=== PATIENT | female | born 1960 | race Two or more races ===

== ENCOUNTER 2020-10-06 12:33 | Outpatient (REF) | payer OTHER, SELFPAY ==
[2020-10-06 15:09] LABS: Glucose Urine UA NEG (NEG); Leukocyte Esterase Urine NEG (NEG); Nitrite Urine NEG (NEG); PH 6.5 (5.0-8.0); Urine Blood NEG (NEG); Urine Ketones NEG (NEG); Urine Protein NEG (NEG-TRACE)
[2020-10-06 15:11] LABS: Appearance Urine CLEAR; Color Urine YELLOW
[2020-10-06 15:14] LABS: RBC Urine 0 /HPF (0); WBC Urine 0 /HPF (0-4)
[2020-10-06 15:15] LABS: Bacteria Urine TRACE /LPF
== END 2020-10-06 12:34 | disposition home or self-care (01) ==
LOC: HO.LAB 12:33
PROVIDERS: PCP Internal Medicine; Visit Provider Obstetrics & Gynecology
DX: R35.0 Frequency of micturition (principal); R39.15 Urgency of urination; R10.2 Pelvic and perineal pain; R30.0 Dysuria
CPT/HCPCS: 81001; 87086

== ENCOUNTER → 2020-10-31 12:46 | Outpatient (BNVA) | payer OTHER, SELFPAY | PROVIDERS: PCP Internal Medicine; Visit Provider Internal Medicine Endocrinology, Diabetes & Metabolism | DX: Z13.89 Encounter for screening for other disorder (principal) ==

== ENCOUNTER 2020-11-22 06:50 | Outpatient (REF) | payer OTHER, SELFPAY ==
[2020-11-22 08:41] LABS: Cholesterol 145 mg/dL; HDL Cholesterol 39 mg/dL; LDL Cholesterol Calculated 65 mg/dl; Triglycerides 207 mg/dL
[2020-11-22 08:43] LABS: Estimated Average Glucose 131 mg/dL; Hemoglobin A1C 151.4665 umol/L; Hemoglobin A1c % 6.2 %
[2020-11-22 09:01] LABS: Thyroid Stimulating Hormone 2.21 uIU/mL (0.32-4.0); Vitamin B12 253 pg/mL (200-900)
[2020-11-22 13:12] LABS: Creatinine Urine 30.16 mg/dL; Microalbum/Creatinine Ratio Ur 16.5 ug/mg cr
[2020-11-23 09:13] LABS: LDL Cholesterol Direct 77 mg/dL (<100)
== END 2020-11-22 06:51 | disposition home or self-care (01) ==
LOC: HO.LAB 06:50
PROVIDERS: Visit Provider Internal Medicine Endocrinology, Diabetes & Metabolism
DX: E11.9 Type 2 diabetes mellitus without complications (principal)
CPT/HCPCS: 36415; 80061; 82043; 82607; 83036; 83721; 84439; 84443

== ENCOUNTER 2020-12-19 11:11 | Outpatient (REF) | payer OTHER, SELFPAY ==
--- NOTE | ~2020-12-19 | MM_ITS ---
EXAMINATION: MM SCREENING DIGITAL BREAST TOMOSYNTHESIS, BILATERAL CLINICAL INFORMATION: Screening. Asymptomatic. The lifetime risk of breast cancer based on the Tyrer-Cuzick Model is 11%. COMPARISON: Mammography: 11/23/2019, 11/17/2019, 11/05/2018, 10/15/2017, 10/08/2016, 10/05/2015, 09/23/2014 TECHNIQUE: Digital breast tomosynthesis is performed in both the craniocaudal and mediolateral oblique views along with computer-aided detection (CAD). Synthesized 2D images are generated from the tomosynthesis. Additional exaggerated left CC view is provided. FINDINGS: The breasts are heterogeneously dense, which may obscure small masses (ACR BI-RADS breast composition Category c). The left breast shows no developing density or interval mass or architectural abnormality. Again, there are scattered bilateral benign round and coarse calcifications. Some minor retroareolar duct ectasia is again suggested on the tomography MLO views. No significant changes. The bilateral axilla and skin contours are unremarkable. The right MLO view has asymmetric density upper quadrant 5 cm from nipple without correlate on CC view suggesting probable summation artifact or incompletely compressed glandular tissue. Patient will be recalled to further characterize. MM/MM tomosynthesis screening BI IMPRESSION: 1. Right: Asymmetric density upper quadrant on MLO view without correlate CC view, possibly summation artifact during compressed glandular tissue. 2. Left: No mammographic evidence of malignancy. ASSESSMENT: BI-RADS 0: Incomplete - Need Additional Imaging Evaluation RECOMMENDATION: 1. Additional views of the right breast (3-D spot MLO, 3-D ML). 2. Targeted ultrasound if warranted after review of the additional views. 3. Radiology department staff will contact the patient for additional imaging. This patient's information was entered into a reminder system with a target due date for their next mammogram.
== END 2020-12-19 11:12 | disposition home or self-care (01) ==
LOC: HO.MAMMO 11:11
PROVIDERS: PCP Internal Medicine; Visit Provider Internal Medicine
DX: Z12.31 Encounter for screening mammogram for malignant neoplasm of breast (principal)
CPT/HCPCS: 77063; 77067

== ENCOUNTER 2020-12-27 08:27 | Outpatient (REF) | payer OTHER, SELFPAY ==
--- NOTE | ~2020-12-27 | MM_ITS ---
EXAMINATION: MM DIAGNOSTIC DIGITAL BREAST TOMOSYNTHESIS, RIGHT CLINICAL INFORMATION: Recall from screening for asymmetric density upper breast on MLO view, suspect summation artifact or incompletely compressed glandular tissue. COMPARISON: Mammography: 12/19/2020, 11/17/2019 TECHNIQUE: Digital breast tomosynthesis is performed. 2D images are generated from the tomosynthesis. The following views are obtained: 3-D spot MLO, 3-D ML. FINDINGS: The breasts are heterogeneously dense, which may obscure small masses (ACR BI-RADS breast composition Category c). The additional views show no persistent asymmetric density. There is no mass or developing density or architectural abnormality in the area of recent imaging concern. Results are discussed with the patient at time of visit. MM/MM tomosynthesis added views R IMPRESSION: Additional views are unremarkable. No significant changes from prior studies. ASSESSMENT: BI-RADS 1: Negative RECOMMENDATION: Routine annual mammography screening. This patient's information was entered into a reminder system with a target due date for their next mammogram.
== END 2020-12-27 08:28 | disposition home or self-care (01) ==
LOC: HO.MAMMO 08:27
PROVIDERS: Visit Provider Internal Medicine
DX: R92.2 Inconclusive mammogram (principal)
CPT/HCPCS: 77061; 77065

== ENCOUNTER 2021-01-09 15:31 | Outpatient (REF) | payer OTHER, SELFPAY ==
[2021-01-12 06:17] LABS: HPV mRNA E6/E7 rflx Not Detected (Not Detected)
== END 2021-01-09 15:32 | disposition home or self-care (01) ==
LOC: HO.LAB 15:31
PROVIDERS: PCP Internal Medicine; Visit Provider Obstetrics & Gynecology
DX: Z01.411 Encounter for gynecological examination (general) (routine) with abnormal findings (principal); Z11.51 Encounter for screening for human papillomavirus (HPV); N90.4 Leukoplakia of vulva
CPT/HCPCS: 36415; 87624; 88142

== ENCOUNTER 2021-01-19 15:27 | Outpatient (REF) | payer OTHER, SELFPAY | END 2021-01-19 15:28 | disposition home or self-care (01) | LOC: HO.LAB 15:27 | PROVIDERS: Visit Provider Obstetrics & Gynecology | DX: N90.4 Leukoplakia of vulva (principal) | CPT/HCPCS: 56605; 88305; 88312 ==

== ENCOUNTER → 2021-02-06 15:52 | Outpatient (BNVA) | payer OTHER, SELFPAY | PROVIDERS: Visit Provider Obstetrics & Gynecology ==

== ENCOUNTER 2021-02-22 14:19 | Outpatient (REF) | payer OTHER, SELFPAY ==
[2021-02-22 18:38] LABS: Alanine Aminotransferase 18 U/L (0-31); Albumin Level 4.5 g/dL (3.5-5.0); Alkaline Phosphatase 114 U/L (39-117); Anion Gap 13 (12-20); Aspartate Amino Transferase 14 U/L (5-31); Bilirubin Direct < 0.2 mg/dL (0.0-0.5); Bilirubin Total 0.2 mg/dL (0.0-1.0); Blood Urea Nitrogen 13 mg/dL (9-16); Calcium 9.3 mg/dL (8.4-10.2); Carbon Dioxide 25 mmol/L (22-29); Chloride 106 mmol/L (96-108); Estimated Glomerular Filt Rate > 60; Glucose Random 98 mg/dL (60-115); Potassium 4.3 mmol/L (3.3-5.1); Sodium 140 mmol/L (135-145); Total Protein 7.5 g/dL (6.5-8.0)
== END 2021-02-22 14:20 | disposition home or self-care (01) ==
LOC: HO.LAB 14:19
PROVIDERS: PCP Internal Medicine; Visit Provider Internal Medicine
DX: E66.9 Obesity, unspecified (principal); E78.9 Disorder of lipoprotein metabolism, unspecified; F41.1 Generalized anxiety disorder; R00.2 Palpitations; Z91.09 Other allergy status, other than to drugs and biological substances
CPT/HCPCS: 36415; 80048; 80076

== ENCOUNTER → 2021-05-26 07:24 | Outpatient (BNVA) | payer OTHER, SELFPAY | PROVIDERS: PCP Internal Medicine; Visit Provider Internal Medicine Endocrinology, Diabetes & Metabolism | DX: E66.9 Obesity, unspecified (principal); E11.9 Type 2 diabetes mellitus without complications; E55.9 Vitamin D deficiency, unspecified; E78.5 Hyperlipidemia, unspecified; R74.8 Abnormal levels of other serum enzymes | CPT/HCPCS: 82947 ==

== ENCOUNTER 2021-11-23 11:25 | Outpatient (REF) | payer OTHER, SELFPAY ==
[2021-11-23 12:34] LABS: Influenza A PCR NEGATIVE (Negative); Influenza B PCR NEGATIVE (Negative); Resp Syncy Virus RNA Qual PCR NEGATIVE (Negative); SARS COV2 PCR INHOUSE POSITIVE (Negative)
== END 2021-11-23 11:26 | disposition home or self-care (01) ==
LOC: HO.LNP 11:25
PROVIDERS: Visit Provider Physician Assistant
DX: Z20.822 Contact with and (suspected) exposure to COVID-19 (principal); J01.10 Acute frontal sinusitis, unspecified
CPT/HCPCS: 0241U

== ENCOUNTER 2022-01-03 15:39 | Outpatient (REF) | payer OTHER, SELFPAY ==
--- NOTE | ~2022-01-03 | MM_ITS ---
EXAMINATION: MM SCREENING DIGITAL BREAST TOMOSYNTHESIS, BILATERAL CLINICAL INFORMATION: Screening. Asymptomatic. The lifetime risk of breast cancer based on the Tyrer-Cuzick Model is 13%. COMPARISON: Mammography: 12/27/2020, 12/19/2020, 11/23/2019, 11/17/2019, 11/05/2018 TECHNIQUE: Digital breast tomosynthesis is performed in both the craniocaudal and mediolateral oblique views along with computer-aided detection (CAD). Synthesized 2D images are generated from the tomosynthesis. FINDINGS: The breasts are heterogeneously dense, which may obscure small masses (ACR BI-RADS breast composition Category c). Parenchymal pattern is similar to prior studies. There is no developing density or interval mass or architectural abnormality. There are scattered benign round and coarse calcifications. The axilla and skin contours are unremarkable. No significant changes. MM/MM tomosynthesis screening BI IMPRESSION: No mammographic evidence of malignancy. ASSESSMENT: BI-RADS 1: Negative RECOMMENDATION: Routine annual mammography screening. This patient's information was entered into a reminder system with a target due date for their next mammogram.
== END 2022-01-03 15:40 | disposition home or self-care (01) ==
LOC: HO.MAMMO 15:39
PROVIDERS: Visit Provider Internal Medicine
DX: Z12.31 Encounter for screening mammogram for malignant neoplasm of breast (principal)
CPT/HCPCS: 77063; 77067

== ENCOUNTER → 2022-02-06 15:31 | Outpatient (BNVA) | payer OTHER, SELFPAY | PROVIDERS: Visit Provider Obstetrics & Gynecology | DX: Z13.89 Encounter for screening for other disorder (principal) ==

== ENCOUNTER → 2022-02-14 12:16 | Outpatient (BNVA) | payer OTHER, SELFPAY | PROVIDERS: Visit Provider Physician Assistant Medical | DX: Z13.89 Encounter for screening for other disorder (principal) | CPT/HCPCS: 36415; 84450; 84460; 86803; 87389; 99213 ==

== ENCOUNTER 2022-03-01 09:06 | Outpatient (REF) | payer OTHER, SELFPAY ==
[2022-03-01 11:11] LABS: MANUAL DIFF FLAG NO
[2022-03-01 11:21] LABS: Basophils Absolute Auto 0.1 X10*3/uL (0.0-0.2); Basophils Percent Auto 0.4 % (0-2); Eosinophils Absolute Auto 0.2 X10*3/uL (0.0-0.4); Eosinophils Percent Auto 1.4 % (0-4); Hematocrit 43.6 % (37.0-47.0); Hemoglobin 14.3 g/dl (12.0-16.0); Imm Gran Abs Auto 0.03 X10*3/uL (0.00-0.03); Imm Gran Pct Auto 0.2 % (0.0-0.4); Lymphocytes Absolute Auto 3.2 X10*3/uL (1.2-4.9); Lymphocytes Percent Auto 26.1 % (20-40); Mean Corpuscular HGB Conc 32.8 g/dl (31.0-35.0); Mean Corpuscular Hemoglobin 29.1 pg (27.0-33.0); Mean Corpuscular Volume 88.6 fL (80.0-98.0); Mean Platelet Volume 10.3 fL (9.4-12.3); Neutrophils Absolute Auto 7.9 x10*3/uL (2.0-8.3); Neutrophils Percent Auto 63.9 % (45-73); Platelet Count 500 X10*3/uL (160-400); Red Blood Count 4.92 X10*6/uL (4.20-5.50); Red Cell Distribution Width 13.2 % (11.0-16.0); White Blood Count 12.3 X10*3/uL (4.8-10.8)
[2022-03-01 11:26] LABS: Estimated Average Glucose 123 mg/dL; Hemoglobin A1c % 5.9 %
[2022-03-01 11:30] LABS: Alanine Aminotransferase 30 U/L (0-31); Albumin Level 4.4 g/dL (3.5-5.0); Alkaline Phosphatase 104 U/L (39-117); Anion Gap 15 (12-20); Aspartate Amino Transferase 22 U/L (5-31); Bilirubin Total 0.5 mg/dL (0.0-1.0); Blood Urea Nitrogen 12 mg/dL (9-16); Calcium 10.3 mg/dL (8.4-10.2); Carbon Dioxide 23 mmol/L (22-29); Chloride 105 mmol/L (96-108); Cholesterol 156 mg/dL; Estimated Glomerular Filt Rate > 60; Glucose Fasting 100 mg/dL (60-99); HDL Cholesterol 38 mg/dL; LDL Cholesterol Calculated 68 mg/dl; Potassium 4.4 mmol/L (3.3-5.1); Sodium 139 mmol/L (135-145); Total Protein 7.6 g/dL (6.5-8.0); Triglycerides 251 mg/dL
[2022-03-01 11:54] LABS: TSH reflex Free T4 1.48 uIU/mL (0.32-4.0)
[2022-03-01 11:58] LABS: Creatinine Urine 63.22 mg/dL; Microalbumin Urine < 5.0 mg/L
[2022-03-01 11:58] LABS: Vitamin B12 239 pg/mL (200-900)
[2022-03-05 12:41] LABS: Vitamin D 25-OH, D2 <4 ng/mL; Vitamin D 25-OH, D3 55 ng/mL; Vitamin D 25-OH, Total 55 ng/mL (30-100)
== END 2022-03-01 09:07 | disposition home or self-care (01) ==
LOC: HO.HMGCLDS 09:06
PROVIDERS: PCP Internal Medicine; Visit Provider Internal Medicine
DX: E11.9 Type 2 diabetes mellitus without complications (principal); E55.9 Vitamin D deficiency, unspecified; E66.9 Obesity, unspecified; E78.9 Disorder of lipoprotein metabolism, unspecified; F41.1 Generalized anxiety disorder; R74.8 Abnormal levels of other serum enzymes; Z91.09 Other allergy status, other than to drugs and biological substances
CPT/HCPCS: 36415; 80053; 80061; 82043; 82306; 82607; 83036; 84443; 85025

== ENCOUNTER 2022-03-20 14:48 | Outpatient (REF) | payer OTHER, SELFPAY ==
--- NOTE | ~2022-03-20 | XR_ITS ---
EXAMINATION: XR FOOT, RIGHT CLINICAL INFORMATION: Pain COMPARISON: None TECHNIQUE: AP, lateral, and oblique views of the right foot. FINDINGS: Bone alignment is normal. No fracture or dislocation is seen. Joint spaces are normal. There is a plantar calcaneal spur. Soft tissues are otherwise normal. XR/XR foot RT 2V IMPRESSION: Plantar calcaneal spur otherwise unremarkable exam.
--- NOTE | ~2022-03-20 | XR_ITS ---
EXAMINATION: XR KNEE, RIGHT CLINICAL INFORMATION: Pain COMPARISON: None TECHNIQUE: Two views of the right knee. FINDINGS: Bone alignment is normal. No fracture or dislocation is seen. The joint spaces are normal. There is no joint effusion. XR/XR knee RT 2V IMPRESSION: Normal right knee.
== END 2022-03-20 14:49 | disposition home or self-care (01) ==
LOC: HO.XRAY 14:48
PROVIDERS: PCP Internal Medicine; Visit Provider Internal Medicine
DX: M25.561 Pain in right knee (principal); M79.671 Pain in right foot
CPT/HCPCS: 73560; 73620

== ENCOUNTER → 2022-08-28 13:03 | Outpatient (BNVA) | payer OTHER, SELFPAY | PROVIDERS: PCP Internal Medicine; Visit Provider Surgery | DX: L72.0 Epidermal cyst (principal) | CPT/HCPCS: 10060 ==

== ENCOUNTER 2022-09-28 06:45 | Outpatient (REF) | payer OTHER, SELFPAY ==
[2022-09-28 07:42] LABS: Calcium 9.6 mg/dL (8.4-10.2); Chloride 107 mmol/L (96-108); Potassium 4.7 mmol/L (3.3-5.1); Sodium 142 mmol/L (135-145)
[2022-09-28 07:56] LABS: Estimated Average Glucose 120 mg/dL; Hemoglobin A1c % 5.8 %
[2022-09-28 08:01] LABS: Alanine Aminotransferase 21 U/L (0-31); Albumin Level 4.4 g/dL (3.5-5.0); Alkaline Phosphatase 128 U/L (39-117); Anion Gap 17 (12-20); Aspartate Amino Transferase 18 U/L (5-31); Bilirubin Total 0.5 mg/dL (0.0-1.0); Blood Urea Nitrogen 12 mg/dL (9-16); Carbon Dioxide 25 mmol/L (22-29); Estimated Glomerular Filt Rate > 60; Glucose Random 94 mg/dL (60-115); Total Protein 7.4 g/dL (6.5-8.0)
[2022-09-28 11:12] LABS: Creatinine Urine 37.19 mg/dL; Microalbumin Urine < 5.0 mg/L
[2022-10-01 00:37] LABS: LDL Cholesterol Direct 76 mg/dL (<100)
== END 2022-09-28 06:46 | disposition home or self-care (01) ==
LOC: HO.LAB 06:45
PROVIDERS: Visit Provider Internal Medicine
DX: E11.9 Type 2 diabetes mellitus without complications (principal); E66.9 Obesity, unspecified; E78.9 Disorder of lipoprotein metabolism, unspecified; F41.1 Generalized anxiety disorder; Z91.09 Other allergy status, other than to drugs and biological substances
CPT/HCPCS: 36415; 80053; 82043; 83036; 83721

== ENCOUNTER 2023-01-09 14:51 | Outpatient (REF) | payer OTHER, SELFPAY ==
--- NOTE | ~2023-01-09 | MM_ITS ---
EXAMINATION: MM SCREENING DIGITAL BREAST TOMOSYNTHESIS, BILATERAL CLINICAL INFORMATION: Screening. Asymptomatic. The lifetime risk of breast cancer based on the Tyrer-Cuzick Model is 13%. COMPARISON: Mammography: 01/03/2022, 12/27/2020, 12/19/2020, 11/23/2019, 11/17/2019, 11/05/2018 TECHNIQUE: Digital breast tomosynthesis is performed in both the craniocaudal and mediolateral oblique views along with computer-aided detection (CAD). Synthesized 2D images are generated from the tomosynthesis. FINDINGS: The breasts are heterogeneously dense, which may obscure small masses (ACR BI-RADS breast composition Category c). Parenchymal pattern is similar to prior exams and there is no significant mass or architectural abnormality or abnormal calcifications. Again, there is chronic bilateral subareolar duct ectasia, greater on the left. Scattered bilateral benign round and coarse calcifications are again noted. The axilla and skin contours are unremarkable. No significant changes from prior studies. MM/MM tomosynthesis screening BI IMPRESSION: No significant changes from prior exams. ASSESSMENT: BI-RADS 2: Benign RECOMMENDATION: Routine annual mammography screening. This patient's information was entered into a reminder system with a target due date for their next mammogram.
== END 2023-01-09 14:52 | disposition home or self-care (01) ==
LOC: HO.MAMMO 14:51
PROVIDERS: PCP Internal Medicine; Visit Provider Internal Medicine
DX: Z12.31 Encounter for screening mammogram for malignant neoplasm of breast (principal)
CPT/HCPCS: 77063; 77067

== ENCOUNTER → 2023-02-11 15:27 | Outpatient (BNVA) | payer OTHER, SELFPAY | PROVIDERS: PCP Internal Medicine; Visit Provider Obstetrics & Gynecology | DX: Z13.89 Encounter for screening for other disorder (principal) ==

== ENCOUNTER 2023-04-02 17:31 | Emergency (ER) | payer OTHER, SELFPAY ==
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
--- NOTE | ~2023-04-02 | XR_ITS ---
EXAMINATION: LUMBAR SPINE, RIGHT KNEE, RIGHT ELBOW CLINICAL INFORMATION: Trauma COMPARISON: None available. TECHNIQUE: 3 views lumbosacral spine, 5 views right knee, 3 views right elbow FINDINGS: Some minimal spondylitic degenerative changes are seen in the lumbar spine. No fractures, dislocations or bony destructive lesions are seen. Moderate stool burden in the colon. A single surgical clip in the right lower quadrant. No significant bone, joint or soft tissue abnormality is seen in the right knee. No bone, joint or soft tissue abnormality is seen in the right elbow. XR/XR elbow RT 2V IMPRESSION: No evidence of an acute osseous injury. Incidental findings as described above.
--- NOTE | ~2023-04-02 | XR_ITS ---
EXAMINATION: LUMBAR SPINE, RIGHT KNEE, RIGHT ELBOW CLINICAL INFORMATION: Trauma COMPARISON: None available. TECHNIQUE: 3 views lumbosacral spine, 5 views right knee, 3 views right elbow FINDINGS: Some minimal spondylitic degenerative changes are seen in the lumbar spine. No fractures, dislocations or bony destructive lesions are seen. Moderate stool burden in the colon. A single surgical clip in the right lower quadrant. No significant bone, joint or soft tissue abnormality is seen in the right knee. No bone, joint or soft tissue abnormality is seen in the right elbow. XR/XR knee RT 3V IMPRESSION: No evidence of an acute osseous injury. Incidental findings as described above.
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
[2023-04-02 18:44] VITALS: BP 151/77; PULSE 87; RESP 20; TEMP 36.6; O2SAT 97; BMI 29.1
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
[2023-04-02] MEDS: Acetaminophen 325 MG TABLET 975 MG PO (19:05)
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
[2023-04-02] MEDS: Ketorolac Tromethamine 30 MG/ML VIAL IM (19:59)
[2023-04-02] MEDS: Cyclobenzaprine HCl 10 MG TABLET PO (20:00)
[2023-04-02 20:03] VITALS: BP 148/69; PULSE 81; RESP 17; O2SAT 95
--- NOTE | 2023-04-02 20:06 | PC.NURSE ---
Patient medicated per JAN. Patient given warm blanket and resting comfortably. call alvares within reach.
== END 2023-04-02 21:26 | disposition home or self-care (01) ==
PROVIDERS: Emergency Provider Emergency Medicine; PCP Internal Medicine
DX: S39.012A Strain of muscle, fascia and tendon of lower back, initial encounter (principal); S13.4XXA Sprain of ligaments of cervical spine, initial encounter; S50.01XA Contusion of right elbow, initial encounter; S80.01XA Contusion of right knee, initial encounter; V43.52XA Car driver injured in collision with other type car in traffic accident, initial encounter; R55 Syncope and collapse; E11.9 Type 2 diabetes mellitus without complications; E78.5 Hyperlipidemia, unspecified; Z79.85 Long-term (current) use of injectable non-insulin antidiabetic drugs; Z79.02 Long term (current) use of antithrombotics/antiplatelets; Z79.899 Other long term (current) drug therapy; Y93.89 Activity, other specified; Y92.414 Local residential or business street as the place of occurrence of the external cause; Y99.9 Unspecified external cause status
CPT/HCPCS: 70450; 72100; 72125; 73070; 73562; 96372; 99284; J1885

== ENCOUNTER 2023-06-13 11:00 | Outpatient (RCR) | payer OTHER, SELFPAY ==
--- NOTE | 2023-05-16 13:36 | MHC.PT.EP ---
[facility] [place] Office [place] Office [place] Office [address] Cory Herrera [address] [phone] F: [phone] F: [phone] F: [phone] F: [phone] Physical Therapy Plan of Care Date of Evaluation: Date of Surgery: N/A Diagnosis: M54.16 radiculopathy, lumbar region M54.2 cervicalgia (RL) Assessment: pt is a 63 y/o female presenting to physical therapy w/ referring diagnosis of M54.16 radiculopathy, lumbar region, M54.2 cervicalgia. pt would like to focus on evaluation and treatment for her neck at this time. pt's signs and symptoms consistent w/ upper trap spasm/strain and cervicogenic ORDAZ. Lumbar spine not evaluated today. Impairments include pain, decreased range of motion, decreased strength, impaired functional mobility, impaired postural awareness, and altered ambulation mechanics. pt is a good candidate for skilled PT due to age, potential remediation of impairments, typical disease/condition progression and prognosis, comorbidities, and motivation. pt would benefit from skilled PT intervention to provide a tailored strengthening and stretching exercise program, functional training, gait training, postural re-training, neuromuscular re-education, modalities as needed for pain, equipment safety demonstration. Frequency and Duration: The patient will be seen 2x/wk for 4 wks Short Term Goals: pt will be I w/ HEP to promote self-management of condition. pt will demo proper sitting posture w/ lumbar roll to promote neutral spine w/ seated ADLs/work tasks. Manager Reliability Goals: pt will report a statistically significant improvement in self-reported outcome measure, NDI, to promote return to PLOF. pt will improve B cervical rotation by at least 10 degrees to promote ease in head turns w/ driving for safety. Treatment Plan: Modalities to reduce pain, spasms and effusion. Manual therapy to restore motion and function. Therapeutic exercise to improve strength and flexibility. Neuromuscular re-education for posture and balance. Therapeutic activities to return to functional activities of daily living. Electronically signed by: Nancy Giron PT, DPT Please sign and return to therapist. Thank you for your referral.
--- NOTE | 2023-07-03 13:46 | MHC.PT.DC ---
[facility] [place] Office [place] Office [place] Office [address] Cory Herrera [address] [phone] F: [phone] F: [phone] F: [phone] F: [phone] Physical Therapy Discharge Report Diagnosis: M54.16 radiculopathy, lumbar region M54.2 cervicalgia (RL) Date of Surgery: N/A Date of Evaluation: 05/16/23 Date of Discharge: 07/03/23 Treatments to Date: 4 Cancellations to Date: 2 No Shows to Date: 0 Discharge Status: Visit Non-compliance Discharge Summary: The patient cancelled her last two appointments and has not called to reschedule in two weeks. She is being discharged from this physical therapy plan of care at this time. She was responding well to cervical and thoracic mobility program as well as heat and soft tissue work. Electronically signed by: Nancy Giron PT, DPT Please sign and return to therapist. Thank you for your referral.
== END 2023-07-03 13:46 | disposition home or self-care (01) ==
LOC: HO.PT 11:00
PROVIDERS: PCP Internal Medicine; Visit Provider Internal Medicine
DX: M54.16 Radiculopathy, lumbar region (principal); M54.2 Cervicalgia
CPT/HCPCS: 97110; 97140; 97162

== ENCOUNTER 2023-07-19 06:50 | Outpatient (REF) | payer OTHER, SELFPAY ==
[2023-07-19 07:01] LABS: MANUAL DIFF FLAG NO
[2023-07-19 07:42] LABS: Basophils Absolute Auto 0.1 X10*3/uL (0.0-0.2); Basophils Percent Auto 0.8 % (0-2); Eosinophils Absolute Auto 0.3 X10*3/uL (0.0-0.4); Eosinophils Percent Auto 3.1 % (0-4); Hematocrit 41.6 % (37.0-47.0); Hemoglobin 13.3 g/dl (12.0-16.0); Imm Gran Abs Auto 0.02 X10*3/uL (0.00-0.03); Imm Gran Pct Auto 0.2 % (0.0-0.4); Lymphocytes Absolute Auto 3.4 X10*3/uL (1.2-4.9); Lymphocytes Percent Auto 36.9 % (20-40); Mean Corpuscular Hemoglobin 28.9 pg (27.0-33.0); Mean Corpuscular Volume 90.2 fL (80.0-98.0); Mean Platelet Volume 10.7 fL (9.4-12.3); Monocytes Absolute Auto 0.8 X10*3/uL (0.1-1.2); Monocytes Percent Auto 9.2 % (2-11); Neutrophils Absolute Auto 4.5 x10*3/uL (2.0-8.3); Neutrophils Percent Auto 49.8 % (45-73); Platelet Count 441 X10*3/uL (160-400); Red Blood Count 4.61 X10*6/uL (4.20-5.50); Red Cell Distribution Width 13.1 % (11.0-16.0); White Blood Count 9.1 X10*3/uL (4.8-10.8)
[2023-07-19 07:54] LABS: Alanine Aminotransferase 22 U/L (0-31); Albumin Level 4.3 g/dL (3.5-5.0); Alkaline Phosphatase 126 U/L (39-117); Anion Gap 15 (12-20); Aspartate Amino Transferase 19 U/L (5-31); Bilirubin Total 0.3 mg/dL (0.0-1.0); Blood Urea Nitrogen 15 mg/dL (9-16); Calcium 10.2 mg/dL (8.4-10.2); Carbon Dioxide 22 mmol/L (22-29); Chloride 108 mmol/L (96-108); Cholesterol 134 mg/dL (<200); Estimated Glomerular Filt Rate > 60; Glucose Fasting 121 mg/dL (60-99); HDL Cholesterol 42 mg/dL (>40); LDL Cholesterol Calculated 56 mg/dL (<100); Potassium 4.1 mmol/L (3.3-5.1); Sodium 141 mmol/L (135-145); Total Protein 7.5 g/dL (6.5-8.0); Triglycerides 183 mg/dL (<150)
[2023-07-19 07:56] LABS: Estimated Average Glucose 117 mg/dL; Hemoglobin A1c % 5.7 % (<6.0)
[2023-07-19 10:53] LABS: Creatinine Urine 89.14 mg/dL; Microalbum/Creatinine Ratio Ur 8.9 ug/mg cr (<30)
--- NOTE | 2023-09-30 13:53 | HM_ITS ---
Conclusion: 1. Patient was monitored for total period of 2 days and 23 hours 2. Baseline was normal sinus with average heart of 81 beats per minute 3. No significant pauses noted 4. No significant arrhythmias noted 5. No patient reported events MTDD
== END 2023-07-19 06:51 | disposition home or self-care (01) ==
LOC: HO.LAB 06:50
PROVIDERS: PCP Internal Medicine; Visit Provider Internal Medicine
DX: Z00.01 Encounter for general adult medical examination with abnormal findings (principal); E11.9 Type 2 diabetes mellitus without complications; E78.9 Disorder of lipoprotein metabolism, unspecified; F33.9 Major depressive disorder, recurrent, unspecified; F41.1 Generalized anxiety disorder; I10 Essential (primary) hypertension; R79.89 Other specified abnormal findings of blood chemistry; Z91.09 Other allergy status, other than to drugs and biological substances
CPT/HCPCS: 36415; 80053; 80061; 82043; 82570; 83036; 85025

== ENCOUNTER 2023-07-26 15:03 | Outpatient (AMB) | payer OTHER, SELFPAY ==
[2023-07-26 15:15] VITALS: BP 120/66; PULSE 94; O2SAT 94; BMI 29.6
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
== END 2023-07-26 15:58 | disposition home or self-care (01) ==
PROVIDERS: Visit Provider Internal Medicine
DX: M54.2 Cervicalgia (principal); R51.9 Headache, unspecified; S06.0X0D Concussion without loss of consciousness, subsequent encounter; Z04.3 Encounter for examination and observation following other accident; V89.2XXD Person injured in unspecified motor-vehicle accident, traffic, subsequent encounter
CPT/HCPCS: 99214

== ENCOUNTER 2023-07-26 15:44 | Outpatient (AMB) | payer OTHER, SELFPAY ==
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
== END 2023-07-26 15:58 | disposition home or self-care (01) ==
LOC: HO.HMGC 15:44
PROVIDERS: PCP Internal Medicine; Visit Provider Internal Medicine
DX: E11.9 Type 2 diabetes mellitus without complications (principal); Z79.4 Long term (current) use of insulin; Z91.09 Other allergy status, other than to drugs and biological substances; F33.42 Major depressive disorder, recurrent, in full remission; E66.9 Obesity, unspecified; E78.9 Disorder of lipoprotein metabolism, unspecified; F41.1 Generalized anxiety disorder
CPT/HCPCS: 99214

== ENCOUNTER 2023-09-19 12:40 | Outpatient (AMB) | payer OTHER, SELFPAY ==
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
[2023-09-19 13:04] VITALS: BP 112/78; PULSE 84; O2SAT 97; BMI 30.4
== END 2023-09-19 13:57 | disposition home or self-care (01) ==
PROVIDERS: PCP Internal Medicine; Visit Provider Nurse Practitioner Family
DX: M54.2 Cervicalgia (principal); F07.81 Postconcussional syndrome; G44.309 Post-traumatic headache, unspecified, not intractable
CPT/HCPCS: 99204

== ENCOUNTER → 2023-09-19 12:40 | Outpatient (BNVA) | payer OTHER, SELFPAY | PROVIDERS: PCP Internal Medicine; Visit Provider Nurse Practitioner Family ==

== ENCOUNTER → 2023-09-30 13:53 | Outpatient (BNV) | payer OTHER, SELFPAY | PROVIDERS: PCP Internal Medicine; Visit Provider Internal Medicine Cardiovascular Disease | DX: R00.2 Palpitations (principal) | CPT/HCPCS: 93244 ==

== ENCOUNTER → 2023-09-30 13:56 | Outpatient (REF) | payer OTHER, SELFPAY ==
--- NOTE | 2023-09-30 | HM_ITS ---
Conclusion: 1. Patient was monitored for total period of 2 days and 23 hours 2. Baseline was normal sinus with average heart of 81 beats per minute 3. No significant pauses noted 4. Rare PACs noted next 5. No patient reported events MTDD
== END ==
LOC: HO.CARD 13:56
PROVIDERS: Visit Provider Internal Medicine Cardiovascular Disease
DX: R00.2 Palpitations (principal)
CPT/HCPCS: 93242

== ENCOUNTER 2023-10-25 15:02 | Outpatient (AMB) | payer OTHER, SELFPAY ==
--- NOTE | 2023-10-25 15:09 | MHC.PC.OV ---
Vital Signs 10/25/23 15:10 Height 5 ft 5 in Weight 186 lb BMI 30.9 BP 118/62 Blood Pressure Location Rt brachial Position Sitting Pulse 76 Pulse Source Pulse Oximeter Pulse Oximetry (%) 96 Oxygen Delivery Method Room Air Intake Visit Reasons: 3 month fu Allergies metformin Adverse Reaction (Unknown, Verified 10/25/23 15:10) GI upset flu vaccine Allergy (Uncoded 10/25/23 15:27) Angioedema Medication List - Last Reconciled 10/25/23 by Chato De Souza MD blood sugar diagnostic (FreeStyle Lite Strips) Once a day blood-glucose meter (FreeStyle Lite Meter kit) As directed cholecalciferol (vitamin D3) 50 mcg PO DAILY 30 days clobetasol 0.05% 1 appl topical BEDTIME escitalopram oxalate 20 mg PO DAILY 90 days flash glucose sensor (FreeStyle Elma 14 Day Sensor kit) every 14 days galcanezumab-gnlm (Emgality Pen) 120 mg subcut ONCE 30 days ketoconazole 2% 1 appl topical .qhs 30 days lancets (VideojugStyle Lancets) As directed to test blood glucose once a day magnesium oxide 400 mg PO BEDTIME 30 days metoprolol succinate ER (Toprol XL) 50 mg (1/2 x 100 mg) PO DAILY montelukast 10 mg PO DAILY 90 days naratriptan take 1/2 - 1 tab at onset of headache; if no relief may repeat 1 tab after at least 4 hrs; max = 2 tabs/24 hrs orally PRN; 30 days omeprazole 20 mg PO DAILY riboflavin (vitamin B2) 400 mg (4 x 100 mg) PO DAILY 30 days rosuvastatin 10 mg PO BEDTIME Tobacco use date assessed: 10/25/23 Dental Screening Dental Screen Date: 10/25/23 Did you have a dental visit in the last 12 months?: Yes Did you have a dental problem in the last 6 months where you did not have access to dental care?: No Was dental information given to patient?: Patient has dentist HPI 3 month fu HPI Details Regular follow-up appointment Diabetes mellitus: Patient has stopped taking Trulicity, she is feeling much better her headaches has resolved. Now only watching diet Anxiety/depression: Continue Lexapro 20 mg Blood pressure is stable patient is on metoprolol 50 mg, she sees Dr. Jesus every other year For allergies she is on singular 10 mg and should be on long-acting antihistamine [id number]. GERD is stable with PPI Lipid disorder: Continue rosuvastatin 10 mg daily. Patient has follow-up appointment end of March for physical exam, labs to be repeated then [facility] Medical History Elevated alkaline phosphatase level Dyslipidemia Vitamin D deficiency Obesity (BMI 30-39.9) Diabetes type 2, controlled Surgical History History of angiography History of sinus surgery History of colonoscopy History of appendectomy Family History Father Prostate cancer Mother Diabetes mellitus Dementia HTN (hypertension) Brother No problems noted. Brother No problems noted. Sister No problems noted. Daughter No problems noted. Sister Diabetes mellitus HTN (hypertension) Other Mental health disorder Social History Housing: House Alcohol intake: never Patient Tobacco Use Status: Never used Tobacco e-Cigarette/Vaping Use: Never Used Second Hand Smoke Exposure: No Current occupational status: employed Gender identity: Female Cognitive needs: No Hearing needs: No Vision needs: Yes Female Reproductive History Menstrual Age of Menarche: 14 Questionnaire PHQ-9 Over the last 2 weeks, how often have you been bothered by any of the following problems? 1. Little interest or pleasure in doing things: more than half the days 2. Feeling down, depressed, or hopeless: more than half the days 3. Trouble falling or staying asleep, or sleeping too much: more than half the days 4. Feeling tired or having little energy: more than half the days 5. Poor appetite or overeating: more than half the days 6. Feeling bad about yourself - or that you are a failure or have let yourself or your family down: more than half the days 7. Trouble concentrating on things, such as reading the newspaper or watching television: more than half the days 8. Moving or speaking so slowly that other people could have noticed. Or the opposite - being so fidgety or restless that you have been moving around a lot more than usual: more than half the days 9. Thoughts that you would be better off or of hurting yourself in some way: more than half the days Total score: 18 Depression Screening Interpretation: Positive Depression Screening Follow-up: Existing condition and In treatment Depression Screening Done: Yes 22103 - PHQ-9 Billing: Yes Source: Developed by Drs. Beto Griffin, Latonia Kimball, Dann Spaulding and colleagues, with an educational venancio from [employer]. Thrive Questionnaire Date Thrive assessed: 10/25/23 I am a: Patient What is your living situation today?: I have a steady place to live Within the past 12 months, did the food you bought not last and you didn't have the money to get more?: Never true Within the past 12 months, did you worry whether your food would run out before you got money to buy more?: Never true Do you have trouble paying for medicines?: No Do you have trouble getting transportation to medical appointments?: No Do you have trouble paying your heating and electricity bill?: No Do you have trouble taking care of your child, family member or friend?: No Do you have trouble with day-to-day activities such as bathing, preparing meals, shopping, managing finances, etc.?: No Are you currently unemployed and looking for a job?: No Are you interested in more education?: No Please select the resources that you would like help with: None AIDA-7 AMB Questionnaire AIDA-7 Date AIDA - 7 assessed: 10/25/23 Feeling nervous, anxious, or on edge: 2 = More than half the days Not being able to stop or control worryin = More than half the days Worrying too much about different things: 2 = More than half the days Trouble relaxin = More than half the days Being so restless that it is hard to sit still: 2 = More than half the days Becoming easily annoyed or irritable: 2 = More than half the days Feeling afraid as if something awful might happen: 2 = More than half the days Total AIDA-7 score (0-4 normal; 5-9 mild; 10-14 moderate; 15-21 severe): 14 Source: Developed by Drs. Beto Griffin, Latonia Kimball, Dann Spaulding and colleagues, with an educational venancio from [employer]. AIDA-7 Assessment Billing AIDA-7 Assessment Tool: AIDA-7 Assessment 66538 Review of Systems Const Denies chills and Denies fever(s) ENT Denies epistaxis and Denies nasal discharge Card Denies chest pain Resp Denies chest congestion, Denies cough and Denies hemoptysis GI Denies diarrhea and Denies nausea Skin/Breast Denies rash Neuro Reports no additional complaints Psych Reports no additional complaints Endo Reports no additional complaints Physical exam (Primary Care) Vital Signs: Last Vital Signs Pulse 76 10/25/23 15:10 BP 118/62 10/25/23 15:10 Pulse Ox 96 10/25/23 15:10 Oxygen Delivery Method Room Air 10/25/23 15:10 BMI result Body Mass Index 30.9 Tobacco/Smoking Status: Tobacco use Status Tobacco use date assessed 10/25/23 10/25/23 15:10 Patient Tobacco Use Status Never used Tobacco 10/25/23 15:10 e-Cigarette/Vaping Use Never Used 10/25/23 15:10 PHQ-9: PHQ-9 Score PHQ-9: Total score 18 10/25/23 15:31 Depression Screening Interpretation: Positive Depression Screening Follow-up: Existing condition and In treatment Thrive Assessment: Date of Thrive Assessment Date Thrive assessed 10/25/23 10/25/23 15:17 Const General: cooperative, comfortable and no acute distress Orientation/consciousness: patient oriented x3 HENMT Head: Yes normocephalic Eyes General: appearance normal, both eyes and all related structures Neck Neck: Yes supple Resp Effort & Inspection: normal respiratory effort, no cough and no stridor Cardio Rhythm: regular rhythm Heart sounds: S1 normal heart sound present and S2 normal heart sound present Skin General skin exam: turgor normal Neuro General: patient oriented x3, tone normal and moves all extremities Extrem Right lower extremity: no edema Left lower extremity: no edema Results AMB Hemoglobin A1c AMB Hemoglobin A1c 6.5 % Last Edit by Marisel Coles CMA on 10/25/23 15:30 Results Reviewed Results Reviewed: Laboratory Last Values Hgb A1c (Clinic) 6.5 % (4.0-6.0) H 10/25/23 15:18 Assessment and Plan Assessment & Plan (1) Diabetes mellitus type 2 in obese: Code(s): E11.69 - Type 2 diabetes mellitus with other specified complication; E66.9 - Obesity, unspecified (2) Major depression, recurrent: Code(s): F33.9 - Major depressive disorder, recurrent, unspecified Qualifiers: Active/Remission status: in full remission Qualified Code(s): F33.42 - Major depressive disorder, recurrent, in full remission (3) Obesity (BMI 30-39.9): Code(s): E66.9 - Obesity, unspecified (4) Environmental allergies: Code(s): Z91.09 - Other allergy status, other than to drugs and biological substances (5) Lipid disorder: Code(s): E78.9 - Disorder of lipoprotein metabolism, unspecified (6) Anxiety, generalized: Code(s): F41.1 - Generalized anxiety disorder Plan Regular follow-up appointment Diabetes mellitus: Patient has stopped taking Trulicity, she is feeling much better her headaches has resolved. Now only watching diet Anxiety/depression: Continue Lexapro 20 mg Blood pressure is stable patient is on metoprolol 50 mg, she sees Dr. Jesus every other year For allergies she is on singular 10 mg and should be on long-acting antihistamine [id number]. GERD is stable with PPI Lipid disorder: Continue rosuvastatin 10 mg daily. Patient has follow-up appointment end of March for physical exam, labs to be repeated then Orders: Orders AMB Hemoglobin A1c Today E11.9 - Type 2 diabetes mellitus without complications Medications: New clotrimazole-betamethasone 1-0.05 % 1 appl topical ONCE 45 grams 0RF Foot fungus 30 days Coding Level of Care Code Est Pt Level 4 (06797) Diagnoses Diabetes mellitus type 2 in obese E11.69; E66.9 Recurrent major depressive disorder, in full remission F33.42 Active/Remission status: in full remission Obesity (BMI 30-39.9) E66.9 Environmental allergies Z91.09 Lipid disorder E78.9 Anxiety, generalized F41.1 Additional Codes AIDA-7 Assessment Billing - AIDA-7 Assessment Tool: AIDA-7 Assessment 34475 ([id number])
[2023-10-25 15:10] VITALS: BP 118/62; PULSE 76; O2SAT 96; BMI 30.9
== END 2023-10-25 17:06 | disposition home or self-care (01) ==
PROVIDERS: PCP Internal Medicine; Visit Provider Internal Medicine
DX: E11.69 Type 2 diabetes mellitus with other specified complication (principal); F33.42 Major depressive disorder, recurrent, in full remission; E66.9 Obesity, unspecified; Z68.30 Body mass index [BMI] 30.0-30.9, adult; Z91.09 Other allergy status, other than to drugs and biological substances; E78.9 Disorder of lipoprotein metabolism, unspecified; F41.1 Generalized anxiety disorder
CPT/HCPCS: 83036; 99214

== ENCOUNTER 2023-12-26 07:06 | Outpatient (REF) | payer OTHER, SELFPAY ==
--- NOTE | ~2023-12-26 | US_ITS ---
EXAMINATION: US ABDOMEN COMPLETE CLINICAL INFORMATION: Calculus of bile duct without cholangitis or cholecystitis without obstruction. COMPARISON: None available. TECHNIQUE: Real-time imaging of the abdominal viscera. FINDINGS: PANCREAS: Normal. ABDOMINAL AORTA: The proximal, mid, and distal segments are normal in caliber. INFERIOR VENA CAVA: Visualized portions are normal. LIVER: The liver is normal in size. The liver contour is normal. There is diffuse increased liver parenchymal echogenicity. No focal hepatic lesion. There is no intrahepatic biliary duct dilatation seen. GALLBLADDER: Normal. The gallbladder is physiologically distended without evidence of stones, sludge, polyps, wall thickening or pericholecystic fluid. COMMON BILE DUCT: Normal in caliber measuring 0.3 cm in diameter. RIGHT KIDNEY: Normal. No hydronephrosis. No renal calculi or focal parenchymal lesions. The kidney measures 12.3 cm in maximum dimension. LEFT KIDNEY: Normal. No hydronephrosis. No renal calculi or focal parenchymal lesions. The kidney measures 11.1 cm in maximum dimension. SPLEEN: Normal. The spleen measures 8.5 cm in maximum dimension. FREE FLUID: None. US/US abdomen complete IMPRESSION: There is generalized increase in hepatic echotexture, consistent with fatty infiltration or hepatocellular disease. Please correlate clinically. No focal hepatic mass or intrahepatic biliary dilatation is seen.
== END 2023-12-26 07:07 | disposition home or self-care (01) ==
LOC: HO.US 07:06
PROVIDERS: PCP Internal Medicine; Visit Provider Surgery
DX: K80.50 Calculus of bile duct without cholangitis or cholecystitis without obstruction (principal)
CPT/HCPCS: 76700

== ENCOUNTER 2023-12-26 13:11 | Outpatient (AMB) | payer OTHER, SELFPAY ==
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
[2023-12-26 13:36] VITALS: BP 130/82; PULSE 90; O2SAT 99
== END 2023-12-26 14:23 | disposition home or self-care (01) ==
PROVIDERS: PCP Internal Medicine; Visit Provider Nurse Practitioner Family
DX: G44.309 Post-traumatic headache, unspecified, not intractable (principal); F07.81 Postconcussional syndrome
CPT/HCPCS: 99214

== ENCOUNTER 2024-01-13 16:04 | Outpatient (REF) | payer OTHER, SELFPAY | END 2024-01-13 16:05 | disposition home or self-care (01) | LOC: HO.MAMMO 16:04 | PROVIDERS: PCP Internal Medicine; Visit Provider Internal Medicine | DX: Z12.31 Encounter for screening mammogram for malignant neoplasm of breast (principal) | CPT/HCPCS: 77063; 77067 ==

== ENCOUNTER → 2024-01-13 16:30 | Outpatient (BNV) | payer OTHER, SELFPAY | PROVIDERS: PCP Internal Medicine; Visit Provider Radiology Diagnostic Radiology | DX: Z12.31 Encounter for screening mammogram for malignant neoplasm of breast (principal) | CPT/HCPCS: 77063; 77067 ==

== ENCOUNTER 2024-02-18 15:32 | Outpatient (AMB) | payer OTHER, SELFPAY ==
--- NOTE | 2024-02-18 15:34 | A.OFFVIS_ITS ---
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 No complaints. Last Pap/HPV was negative in 01/08 Last Mammogram was BI-RADS 1 in 01/11 Last Colonoscopy was done in 2015, the recommendation was to repeat in 10 years [facility] Medical History Elevated alkaline phosphatase level Dyslipidemia Vitamin D deficiency Obesity (BMI 30-39.9) Diabetes type 2, controlled Surgical History History of angiography History of sinus surgery History of colonoscopy History of appendectomy Family History Father Prostate cancer Mother Diabetes mellitus Dementia HTN (hypertension) Brother No problems noted. Brother No problems noted. Sister No problems noted. Daughter No problems noted. 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 Sexually active: Yes Sexual orientation: Straight/Heterosexual Gender identity: Female Cognitive needs: No Hearing needs: No Vision needs: Yes Female Reproductive History Menstrual Age of Menarche: 14 Total pregnancies: 1 Full term: 1 Number of Living Children: 1 Date of Mammogram: 01/13/24 Date of last Bone Density Screenin01/10/21 Review of Systems Const All systems reviewed & are unremarkable except as noted in HPI and below Card Reports as per HPI Resp Reports as per HPI GI Reports as per HPI and Reports no additional complaints Reports as per HPI Physical Exam Vital Signs: Last Vital Signs BP 110/62 02/18/24 15:36 BMI result Body Mass Index 31.6 Const General: cooperative, healthy appearing and comfortable Chest Chest palpation & inspection: normal inspection of the chest and normal palpation of entire chest wall Breast/axilla inspection: normal inspection of the breasts and normal inspection of the axillae Breast/axilla palpation: normal palpation of the breasts, normal palpation of the axillae and no axillary lymphadenopathy Resp Effort & Inspection: normal respiratory effort Auscultation: clear to auscultation bilaterally Percussion: percussion normal Cardio Palpation: normal PMI Rate: regular rate Rhythm: regular rhythm Heart sounds: no murmurs and no rubs Peripheral pulses: Peripheral pulses 2+ throughout GI Inspection: Yes normal to inspection Palpation (GI): Soft to palpation, nontender, no guarding, not rigid and No hepatosplenomegaly present Percussion: Yes normal to percussion Auscultation: normal bowel sounds Rectal Exam - Female: deferred General: Yes bladder normal to palpation External Female Exam: No lesion and other (Mild leukoplakia bilateral) Speculum Exam - Vagina: normal appearance of the vagina, normal palpation, normal vaginal discharge and not erythematous Speculum Exam - Cervix: normal appearance of the cervix and normal palpation Bimanual exam- vagina & uterus: normal bimanual exam, normal palpation, uterine size normal, bladder normal to palpation, consistency normal and normal palpation Bimanual Exam- Adnexa, other: normal adnexae, no masses and no tenderness Assessment & Plan Assessment & Plan (1) Well woman exam: Code(s): Z01.419 - Encounter for gynecological examination (general) (routine) without abnormal findings Plan: Co testing not indicated this year. Counseled the patient about the recommended dietary allowance of 1200 mg of Calcium & 600 IU of vitamin D. Instructions given the patient to schedule next screening Mammogram in 01/12. The patient was instructed to perform monthly self-breast exams and schedule annual exam in a year. All questions answered and the patient verbalized understanding. (2) Lichen sclerosus: Code(s): L90.0 - Lichen sclerosus et atrophicus Plan: Explained to the patient that Lichen sclerosus refers to a benign, chronic, progressive dermatologic condition characterized by marked inflammation, epithelial thinning accompanied by pruritus and pain. In addition, discussed with the patient that there is a small increased risk of squamous cell cancer of the vulva in patients with lichen sclerosus. Adequate treatment of the disease seems to be associated with a reduced risk of development of neoplasia. Instructed the patient to schedule an appointment in a year to examine the affected area, with possible biopsy of suspicious lesions, in addition explained to the patient that she should look at the skin of the affected area and touch with fingertips monthly to search for thickened lumps or sores that do not heal & to report such findings for inspection & possible biopsy to rule out vulvar cancer Recommended to continue Clobetasol propionate 0.05% ointment to be applied daily for maintenance therapy two to three times per week . Medications: Refilled amoxicillin-pot clavulanate 500-125 mg (Augmentin) 1 tab PO Q12H 7 days 14 tabs 0RF Coding Level of Care Code Est Pt Prev Care 40-64y(52649) Diagnoses Well woman exam Z01.419 Lichen sclerosus L90.0
[2024-02-18 15:36] VITALS: BP 110/62; BMI 31.6
== END 2024-02-18 16:03 | disposition home or self-care (01) ==
PROVIDERS: PCP Internal Medicine; Visit Provider Obstetrics & Gynecology
DX: Z01.419 Encounter for gynecological examination (general) (routine) without abnormal findings (principal); L90.0 Lichen sclerosus et atrophicus
CPT/HCPCS: 99396

== ENCOUNTER → 2024-02-18 15:32 | Outpatient (BNVA) | payer OTHER, SELFPAY | PROVIDERS: PCP Internal Medicine; Visit Provider Obstetrics & Gynecology ==

== ENCOUNTER 2024-04-15 15:15 | Outpatient (AMB) | payer OTHER, SELFPAY ==
--- NOTE | 2024-04-15 15:21 | A.OFFPC_ITS ---
Vital Signs 04/15/24 15:22 Height 5 ft 5 in Weight 191 lb 6 oz BMI 31.8 BP 142/88 H Blood Pressure Location Rt brachial Position Sitting Pulse 103 H Pulse Source Pulse Oximeter Pulse Oximetry (%) 97 Oxygen Delivery Method Room Air Intake Visit Reasons: PE Allergies metformin Adverse Reaction (Unknown, Verified 04/15/24 15:23) GI upset flu vaccine Allergy (Uncoded 02/18/24 15:39) Angioedema Medication List - Last Reconciled 04/15/24 by Chato De Souza MD blood sugar diagnostic (Contour Next Test Strips) Test blood sugar twice a day blood-glucose meter (Contour Next Gen Meter) As directed cholecalciferol (vitamin D3) 50 mcg PO DAILY 30 days clobetasol 0.05% 1 appl topical BEDTIME clotrimazole-betamethasone 1-0.05 % 1 appl topical ONCE 30 days escitalopram oxalate 20 mg PO DAILY 90 days ketoconazole 2% 1 appl topical .qhs 30 days lancets (Microlet Lancet) Test blood sugar twice a day magnesium oxide 400 mg PO BEDTIME 30 days metoprolol succinate ER (Toprol XL) 50 mg (1/2 x 100 mg) PO DAILY montelukast 10 mg PO DAILY 90 days naratriptan take 1/2 - 1 tab at onset of headache; if no relief may repeat 1 tab after at least 4 hrs; max = 2 tabs/24 hrs orally PRN; 30 days omeprazole 20 mg PO DAILY riboflavin (vitamin B2) 400 mg (4 x 100 mg) PO DAILY 30 days rimegepant (Nurtec ODT) 75 mg PO ONCE PRN 30 days MDD 1 tab rosuvastatin 10 mg PO BEDTIME Tobacco use date assessed: 04/15/24 Dental Screening Dental Screen Date: 04/15/24 Did you have a dental visit in the last 12 months?: Yes Did you have a dental problem in the last 6 months where you did not have access to dental care?: No Was dental information given to patient?: Patient has dentist HPI PE HPI Details Patient is 64-year-old female came in today for physical examination Patient is diabetic however taking no medication on a controlling her sugar with the help of diet Her hemoglobin A1c is 6.8 today My is elevated need to lose weight patient is trying She is under lot of stress at home because of illness of her who has seizures Patient is also feeling depressed off and on however she is on Lexapro 20 mg daily Blood pressure is slightly elevated today it was within good control February of this month She is taking all her medications and tolerating them. Her mammogram and Pap smear is up-to-date She will be having colonoscopies on. She brought in [facility] paperwork which was filled today she is taking care of her and taking him to appointments. She will return in 4 months for follow-up appointment [facility] Medical History Elevated alkaline phosphatase level Dyslipidemia Vitamin D deficiency Obesity (BMI 30-39.9) Diabetes type 2, controlled Surgical History History of angiography History of sinus surgery History of colonoscopy History of appendectomy Family History Father Prostate cancer Mother Diabetes mellitus Dementia HTN (hypertension) Brother No problems noted. Brother No problems noted. Sister No problems noted. Daughter No problems noted. Sister Diabetes mellitus HTN (hypertension) Other Mental health disorder Social History Housing: House Alcohol intake: never Patient Tobacco Use Status: Never used Tobacco e-Cigarette/Vaping Use: Never Used Second Hand Smoke Exposure: No Current occupational status: employed Current occupation: [employer] Sexual orientation: Straight/Heterosexual Gender identity: Female Cognitive needs: No Hearing needs: No Vision needs: Yes Female Reproductive History Menstrual Age of Menarche: 14 Questionnaire PHQ-9 Over the last 2 weeks, how often have you been bothered by any of the following problems? 1. Little interest or pleasure in doing things: several days 2. Feeling down, depressed, or hopeless: several days 3. Trouble falling or staying asleep, or sleeping too much: more than half the days 4. Feeling tired or having little energy: several days 5. Poor appetite or overeating: several days 6. Feeling bad about yourself - or that you are a failure or have let yourself or your family down: several days 7. Trouble concentrating on things, such as reading the newspaper or watching television: several days 8. Moving or speaking so slowly that other people could have noticed. Or the opposite - being so fidgety or restless that you have been moving around a lot more than usual: several days 9. Thoughts that you would be better off or of hurting yourself in some way: several days Total score: 10 Depression Screening Interpretation: Positive Depression Screening Follow-up: Existing condition and In treatment Depression Screening Done: Yes 18008 - PHQ-9 Billing: Yes Source: Developed by Drs. Beto Griffin, Latonia Kimball, Dann Spaulding and colleagues, with an educational venancio from [employer]. Thrive Questionnaire Date Thrive assessed: 04/15/24 I am a: Patient What is your living situation today?: I have a steady place to live Within the past 12 months, did the food you bought not last and you didn't have the money to get more?: Never true Within the past 12 months, did you worry whether your food would run out before you got money to buy more?: Never true Do you have trouble paying for medicines?: No Do you have trouble getting transportation to medical appointments?: No Do you have trouble paying your heating and electricity bill?: No Do you have trouble taking care of your child, family member or friend?: No Do you have trouble with day-to-day activities such as bathing, preparing meals, shopping, managing finances, etc.?: No Are you currently unemployed and looking for a job?: No Are you interested in more education?: No Please select the resources that you would like help with: None Currently or been in a relationship where the following occur: no concerns reported THRIVE Score: 0 AUDIT C Alcohol Use Questionnaire (AUDIT-C) 1. How often do you have a drink containing alcohol?: Never 3. How often do you have six or more drinks on one occasion?: Never Total Score: 0 Score Reviewed/Action Taken: Yes AIDA-7 AMB Questionnaire AIDA-7 Date AIDA - 7 assessed: 04/15/24 Feeling nervous, anxious, or on edge: 1 = Several days Not being able to stop or control worryin = Several days Worrying too much about different things: 1 = Several days Trouble relaxin = Several days Being so restless that it is hard to sit still: 1 = Several days Becoming easily annoyed or irritable: 1 = Several days Feeling afraid as if something awful might happen: 1 = Several days Total AIDA-7 score (0-4 normal; 5-9 mild; 10-14 moderate; 15-21 severe): 7 Source: Developed by Drs. Beto Griffin, Latonia Kimball, Dann Spaulding and colleagues, with an educational venancio from [employer]. AIDA-7 Assessment Billing AIDA-7 Assessment Tool: AIDA-7 Assessment 02940 Review of Systems Const Denies chills, Denies fever(s) and Denies headache(s) Eyes Denies blurry vision ENT Denies headache(s), Denies nasal discharge, Denies nasal obstruction, Denies odynophagia and Denies sinus pain Card Denies chest pain at rest and Denies chest pain with activity Resp Denies cough and Denies hemoptysis GI Denies diarrhea, Denies odynophagia, Denies vomiting and Denies hematemesis Reports as per HPI Musc Denies abnormal gait Skin/Breast Reports as per HPI Neuro Denies Neuro-related abnormal movements, Denies Abnormal speech present, Denies abnormal gait, Denies headache(s) and Denies Sensory deficit (Neuro) Psych Denies mood swings and Denies paranoia Endo Reports as per HPI Eris/Lymph Reports as per HPI Aller/Immun Reports as per HPI Physical exam (Primary Care) Vital Signs: Last Vital Signs Pulse 103 H 04/15/24 15:22 BP 142/88 H 04/15/24 15:22 Pulse Ox 97 04/15/24 15:22 Oxygen Delivery Method Room Air 04/15/24 15:22 BMI result Body Mass Index 31.8 Tobacco/Smoking Status: Tobacco use Status Tobacco use date assessed 04/15/24 04/15/24 15:24 Patient Tobacco Use Status Never used Tobacco 04/15/24 15:24 e-Cigarette/Vaping Use Never Used 04/15/24 15:24 PHQ-9: PHQ-9 Score PHQ-9: Total score 10 04/15/24 15:55 Depression Screening Interpretation: Positive Depression Screening Follow-up: Existing condition and In treatment Thrive Assessment: Date of Thrive Assessment Date Thrive assessed 04/15/24 04/15/24 15:55 Currently or been in a relationship where the following occur: no concerns reported Const General: cooperative, comfortable and no acute distress Orientation/consciousness: patient oriented x3 HENMT Head: Yes normocephalic and Yes atraumatic Eyes General: appearance normal, both eyes and all related structures Pupils: Equal, round and reactive pupils present EOM: EOMs intact bilaterally Neck Neck: Yes supple and No lymphadenopathy Thyroid: Thyroid normal Lymphatic: no lymphadenopathy noted Resp Effort & Inspection: normal respiratory effort and able to speak in complete sentences Auscultation: clear to auscultation bilaterally Cardio Heart sounds: S1 normal heart sound present and S2 normal heart sound present GI Palpation (GI): Soft to palpation and nontender Auscultation: normal bowel sounds General: Yes no CVA tenderness Back/Spine/Pelvis Back: no CVA tenderness Skin General skin exam: elasticity normal and turgor normal Neuro General: patient oriented x3 and gait normal Cranial nerves: Yes Equal, round and reactive pupils present Speech: No Abnormal speech present Sensory Exam: No Sensory deficit (Neuro) Coordination: tandem gait normal and Romberg test negative Extrem General: Yes normal exam except as noted and No edema Office Procedures Cerumen Removal From which ear canal was the cerumen removed: right Removal: irrigation Notes: patient tolerated procedure well, no complications and ear canal clear [id number] Irrigation/Lavage Results AMB Fasting Glucose AMB Fasting Glucose 160 mg/dL Last Edit by Kavitha Sung MA on 04/15/24 15:32 AMB Hemoglobin A1c AMB Hemoglobin A1c 6.8 % Last Edit by Kavitha Sung MA on 04/15/24 15:53 Results Reviewed Results Reviewed: Laboratory Last Values Fast Glucose (Clinic) 160 mg/dL 04/15/24 15:31 Hgb A1c (Clinic) 6.8 % (4.0-6.0) H 04/15/24 15:53 Assessment and Plan Assessment & Plan (1) Encounter for general adult medical examination with abnormal findings: Code(s): Z00.01 - Encounter for general adult medical examination with abnormal findings (2) Impacted cerumen, right ear: Code(s): H61.21 - Impacted cerumen, right ear (3) Diabetes type 2, controlled: Code(s): E11.9 - Type 2 diabetes mellitus without complications Qualifiers: Diabetes mellitus complication status: without complication Diabetes mellitus prison insulin use: 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 Qualified Code(s): E11.9 - Type 2 diabetes mellitus without complications; Z79.4 - long term care administrator (current) use of insulin (4) Obesity (BMI 30-39.9): Code(s): E66.9 - Obesity, unspecified (5) Vitamin D deficiency: Code(s): E55.9 - Vitamin D deficiency, unspecified (6) Environmental allergies: Code(s): Z91.09 - Other allergy status, other than to drugs and biological substances (7) Lipid disorder: Code(s): E78.9 - Disorder of lipoprotein metabolism, unspecified (8) Anxiety, generalized: Code(s): F41.1 - Generalized anxiety disorder (9) Hypertension, essential: Code(s): I10 - Essential (primary) hypertension (10) Major depression, recurrent: Code(s): F33.9 - Major depressive disorder, recurrent, unspecified Qualifiers: Active/Remission status: in full remission Qualified Code(s): F33.42 - Major depressive disorder, recurrent, in full remission (11) Stress at home: Code(s): F43.9 - Reaction to severe stress, unspecified Plan Patient is 64-year-old female came in today for physical examination Patient is diabetic however taking no medication on a controlling her sugar with the help of diet Her hemoglobin A1c is 6.8 today My is elevated need to lose weight patient is trying She is under lot of stress at home because of illness of her who has seizures Patient is also feeling depressed off and on however she is on Lexapro 20 mg daily Blood pressure is slightly elevated today it was within good control February of this month She is taking all her medications and tolerating them. Her mammogram and Pap smear is up-to-date She will be having colonoscopies on. She brought in [facility] paperwork which was filled today she is taking care of her and taking him to appointments. She will return in 4 months for follow-up appointment On exam today her right ear is filled with cerumen, we have irrigated her ear with good results Orders: Orders Comprehensive [place]. Panel Fast Today E11.9 - Type 2 diabetes mellitus without complications, E55.9 - Vitamin D deficiency, unspecified, E66.9 - Obesity, unspecified, E78.9 - Disorder of lipoprotein metabolism, unspecified, F41.1 - Generalized anxiety disorder, I10 - Essential (primary) hypertension, Z79.4 - long term care administrator (current) use of insulin, Z91.09 - Other allergy status, other than to drugs and biological substances Vitamin D 25-OH (D2 and D3) Today E11.9 - Type 2 diabetes mellitus without complications, E55.9 - Vitamin D deficiency, unspecified, E66.9 - Obesity, unspecified, E78.9 - Disorder of lipoprotein metabolism, unspecified, F41.1 - Generalized anxiety disorder, I10 - Essential (primary) hypertension, Z79.4 - long term care administrator (current) use of insulin, Z91.09 - Other allergy status, other than to drugs and biological substances TSH reflex Free T4 Today E11.9 - Type 2 diabetes mellitus without complications, E55.9 - Vitamin D deficiency, unspecified, E66.9 - Obesity, unspecified, E78.9 - Disorder of lipoprotein metabolism, unspecified, F41.1 - Generalized anxiety disorder, I10 - Essential (primary) hypertension, Z79.4 - USP (current) use of insulin, Z91.09 - Other allergy status, other than to drugs and biological substances Microalbumin, Random (w Creat) Today E11.9 - Type 2 diabetes mellitus without c omplications, E55.9 - Vitamin D deficiency, unspecified, E66.9 - Obesity, unspecified, E78.9 - Disorder of lipoprotein metabolism, unspecified, F41.1 - Generalized anxiety disorder, I10 - Essential (primary) hypertension, Z79.4 - USP (current) use of insulin, Z91.09 - Other allergy status, other than to drugs and biological substances Complete Blood Count Auto Diff Today E11.9 - Type 2 diabetes mellitus without complications, E55.9 - Vitamin D deficiency, unspecified, E66.9 - Obesity, unspecified, E78.9 - Disorder of lipoprotein metabolism, unspecified, F41.1 - Generalized anxiety disorder, I10 - Essential (primary) hypertension, Z79.4 - USP (current) use of insulin, Z91.09 - Other allergy status, other than to drugs and biological substances Lipid Panel Today E11.9 - Type 2 diabetes mellitus without complications, E55.9 - Vitamin D deficiency, unspecified, E66.9 - Obesity, unspecified, E78.9 - Disorder of lipoprotein metabolism, unspecified, F41.1 - Generalized anxiety disorder, I10 - Essential (primary) hypertension, Z79.4 - long term care administrator (current) use of insulin, Z91.09 - Other allergy status, other than to drugs and biological substances Vitamin B12 Today E11.9 - Type 2 diabetes mellitus without complications, E55.9 - Vitamin D deficiency, unspecified, E66.9 - Obesity, unspecified, E78.9 - Disorder of lipoprotein metabolism, unspecified, F41.1 - Generalized anxiety disorder, I10 - Essential (primary) hypertension, Z79.4 - USP (current) use of insulin, Z91.09 - Other allergy status, other than to drugs and biological substances UA CC w/rflx Micro + Cult Today E11.9 - Type 2 diabetes mellitus without complications, E55.9 - Vitamin D deficiency, unspecified, E66.9 - Obesity, unspecified, E78.9 - Disorder of lipoprotein metabolism, unspecified, F41.1 - Generalized anxiety disorder, I10 - Essential (primary) hypertension, Z79.4 - USP (current) use of insulin, Z91.09 - Other allergy status, other than to drugs and biological substances Medications: Refilled rosuvastatin 10 mg PO BEDTIME 90 tabs 3RF Coding Level of Care Code Est Pt Level 4 (66354) Est Pt Prev Care 40-64y(98697) Diagnoses Encounter for general adult medical examination with abnormal findings Z00.01 Impacted cerumen, right ear H61.21 Controlled type 2 diabetes mellitus without complication, with long-term current use of insulin E11.9; Z79.4 Diabetes mellitus complication status: without complication Diabetes mellitus prison insulin use: with prison use Obesity (BMI 30-39.9) E66.9 Vitamin D deficiency E55.9 Environmental allergies Z91.09 Lipid disorder E78.9 Anxiety, generalized F41.1 Hypertension, essential I10 Recurrent major depressive disorder, in full remission F33.42 Active/Remission status: in full remission Stress at home F43.9 CPT Codes Office Procedure - CPT: 48902-Aby Irrigation/Lavage ([id number]) Additional Codes AIDA-7 Assessment Billing - AIDA-7 Assessment Tool: AIDA-7 Assessment 56526 ([id number])
[2024-04-15 15:22] VITALS: BP 142/88; PULSE 103; O2SAT 97; BMI 31.8
== END 2024-04-15 16:13 | disposition home or self-care (01) ==
PROVIDERS: PCP Internal Medicine; Visit Provider Internal Medicine
DX: Z00.01 Encounter for general adult medical examination with abnormal findings (principal); H61.21 Impacted cerumen, right ear; E11.9 Type 2 diabetes mellitus without complications; Z79.4 Long term (current) use of insulin; E66.9 Obesity, unspecified; E55.9 Vitamin D deficiency, unspecified; Z91.09 Other allergy status, other than to drugs and biological substances; E78.9 Disorder of lipoprotein metabolism, unspecified; F41.1 Generalized anxiety disorder; I10 Essential (primary) hypertension; F33.42 Major depressive disorder, recurrent, in full remission; F43.9 Reaction to severe stress, unspecified
CPT/HCPCS: 69209; 82948; 83036; 96127; 99213; 99396

== ENCOUNTER 2024-04-22 07:44 | Outpatient (REF) | payer OTHER, SELFPAY ==
[2024-04-22 08:20] LABS: Hematocrit 42.3 % (37.0-47.0); Hemoglobin 14.2 g/dl (12.0-16.0); Mean Corpuscular HGB Conc 33.6 g/dl (31.0-35.0); Mean Corpuscular Hemoglobin 29.6 pg (27.0-33.0); Mean Corpuscular Volume 88.1 fL (80.0-98.0); Mean Platelet Volume 10.4 fL (9.4-12.3); Platelet Count 434 X10*3/uL (160-400); White Blood Count 8.6 X10*3/uL (4.8-10.8)
[2024-04-22 08:27] LABS: Estimated Average Glucose 140 mg/dL; Hemoglobin A1c % 6.5 % (<6.0)
[2024-04-22 08:50] LABS: Alanine Aminotransferase 40 U/L (0-31); Albumin Level 4.3 g/dL (3.5-5.0); Alkaline Phosphatase 122 U/L (39-117); Aspartate Amino Transferase 31 U/L (5-31); Bilirubin Direct 0.2 mg/dL (0.0-0.5); Bilirubin Total 0.4 mg/dL (0.0-1.0); Lipase 15 U/L (8-78); Total Protein 7.5 g/dL (6.5-8.0)
== END 2024-04-22 07:45 | disposition home or self-care (01) ==
LOC: HO.LAB 07:44
PROVIDERS: Absent Provider Internal Medicine Gastroenterology; PCP Internal Medicine; Visit Provider Internal Medicine Gastroenterology
DX: E11.9 Type 2 diabetes mellitus without complications (principal); E66.9 Obesity, unspecified; E55.9 Vitamin D deficiency, unspecified; Z91.09 Other allergy status, other than to drugs and biological substances; E78.9 Disorder of lipoprotein metabolism, unspecified; F41.1 Generalized anxiety disorder; I10 Essential (primary) hypertension
CPT/HCPCS: 36415; 80076; 83036; 83690; 85027

== ENCOUNTER 2024-04-30 12:56 | Outpatient (AMB) | payer OTHER, SELFPAY ==
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
== END 2024-04-30 14:59 | disposition home or self-care (01) ==
LOC: HO.HSMS 12:56
PROVIDERS: PCP Internal Medicine; Visit Provider Nurse Practitioner Family
DX: G44.309 Post-traumatic headache, unspecified, not intractable (principal); F07.81 Postconcussional syndrome
CPT/HCPCS: 99214

== ENCOUNTER → 2024-04-30 12:56 | Outpatient (BNVA) | payer OTHER, SELFPAY | PROVIDERS: PCP Internal Medicine; Visit Provider Nurse Practitioner Family ==

== ENCOUNTER 2024-05-15 09:02 | Day surgery (SDC) | payer OTHER, SELFPAY ==
[2024-05-13 13:52] VITALS: BMI 31.6
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
[2024-05-15 09:30] VITALS: BMI 30.9
[2024-05-15 09:35] VITALS: BP 134/69; PULSE 81; RESP 16; TEMP 36.1; O2SAT 96
[2024-05-15] MEDS: Lactated Ringers 1,000 ML 100 ML IVCONT (09:40)
[2024-05-15 09:49] LABS: Glucose, Whole Blood 125 mg/dL (60-115)
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
--- NOTE | 2024-05-15 10:04 | MHC.SHP ---
Pre-Procedural Eval Section A - 24 Hr Update-Section A only Date of Service: 05/15/24 Section B - Complete if H&P > 30 days Chief Complaint: Encounter for screening for malignant neoplasm of Details of Present Illness: see H&P no changes Relevant Family History (Specify if Yes): No Relevant Social History: None Present Medications: see Short Stay Collaborative assessment Medical History: No relevant PMH History of Previous Operations: No relevant previous surgery Allergies: Allergies Allergy/AdvReac Type Severity Reaction Status Date / Time Influenza Virus Vaccines Allergy Angioedema Verified 05/15/24 09:49 metformin AdvReac Intermediate GI upset Verified 05/15/24 09:49 Review of Systems Sugical H&P ROS: Negative: Constitution, Cardiovascular, Respiratory, Neurological, Psychiatric, Hem-Onc, Allergic/Immunologic, Gastrointestinal, Genitourinary, Musculoskeletal, Integumentary, Endocrine and Eyes/Ears/Nose/Throat Exam Surgical H&P Exam: Normal: HEENT, Normal: Heart, Normal: Lungs, Normal: Extremities, Normal: Abdomen, Normal: Skin and Normal: Neurological Plan Diagnosis/Plan: Unchanged I have reviewed the history and physical and performed a pertinent physical examination on my patient. No changes have occurred unless specified. Time Spent With Patient Time: Total time managing care of this patient today ____ minutes.
[2024-05-15 10:40] VITALS: BP 111/64; PULSE 75; RESP 16; TEMP 36.3; O2SAT 96
[2024-05-15 10:55] VITALS: BP 128/79; PULSE 75; RESP 16; O2SAT 98
--- NOTE | 2024-05-15 11:01 | OP_ITS ---
DATE OF SERVICE: 05/15/2024 SURGEON: Boyd Muniz MD INDICATIONS: 1. Gastroesophageal reflux disease. 2. Colon cancer screening. PREOPERATIVE DIAGNOSIS: POSTOPERATIVE DIAGNOSIS: PROCEDURE PERFORMED: Upper endoscopy with biopsy, colonoscopy to the terminal ileum. ESTIMATED BLOOD LOSS: COMPLICATIONS: ANESTHESIA: Medications, monitored anesthesia care. ASSISTANTS: SPECIMENS: DESCRIPTION OF PROCEDURE: A history and physical was performed. The risks and benefits of the procedure were explained to the patient. Informed consent was obtained. The patient was placed in the left lateral decubitus position. The Olympus video gastroscope was introduced into the esophagus, stomach, and duodenum. Examination was performed. The scope was removed. She tolerated the procedure well and was repositioned for colonoscopy. A digital rectal exam was performed. The Olympus pediatric video colonoscope was introduced into the rectum and advanced to the cecum. The cecum was identified by transillumination, palpation, and identification of ileocecal valve. Examination was performed. The scope was removed. She tolerated both procedures well and was returned to recovery area in stable condition. FINDINGS: 1. Upper endoscopy, esophagus: The esophagus was normal. There was no esophagitis. There was no stricture. Biopsies were obtained from the EG junction. 2. Stomach: Stomach showed no evidence of masses, ulcers, or polyps. Antral biopsies were obtained to evaluate for H pylori. 3. Duodenum: The bulb and 2nd portion were normal. 4. Colonoscopy: The terminal ileum was examined and appeared normal. The visualized colonic mucosa was normal. The quality of the prep was good. There was mild sigmoid diverticulosis. Some small internal hemorrhoids were noted on retroflexed examination. IMPRESSION: 1. Gastroesophageal reflux disease. 2. Normal colonoscopy. RECOMMENDATION: 1. Follow up the biopsy results. 2. Repeat colonoscopy is recommended in 10 years for average-risk individuals. MD EDWIN Marie/JASE / [phone]
[2024-05-15 11:10] VITALS: BP 133/73; PULSE 73; RESP 16; TEMP 36.2; O2SAT 98
== END 2024-05-15 12:20 | disposition home or self-care (01) ==
PROVIDERS: PCP Internal Medicine; Visit Provider Internal Medicine Gastroenterology
PROC: (CPT 45378; principal; 2024-05-15 10:50)
DX: Z12.11 Encounter for screening for malignant neoplasm of colon (principal); K57.30 Diverticulosis of large intestine without perforation or abscess without bleeding; K64.8 Other hemorrhoids; K21.9 Gastro-esophageal reflux disease without esophagitis; K29.50 Unspecified chronic gastritis without bleeding; K76.0 Fatty (change of) liver, not elsewhere classified; R73.03 Prediabetes; E55.9 Vitamin D deficiency, unspecified; R74.8 Abnormal levels of other serum enzymes; Z79.899 Other long term (current) drug therapy; Z86.16 Personal history of COVID-19
CPT/HCPCS: 45378; 43239; 82947; 88305; 88313; 88342; J2704

== ENCOUNTER 2024-06-20 07:44 | Outpatient (REF) | payer OTHER, SELFPAY ==
[2024-06-20 11:22] LABS: MANUAL DIFF FLAG NO
[2024-06-20 11:37] LABS: Basophils Absolute Auto 0.1 X10*3/uL (0.0-0.2); Eosinophils Absolute Auto 0.2 X10*3/uL (0.0-0.4); Eosinophils Percent Auto 2.9 % (0-4); Hematocrit 42.2 % (37.0-47.0); Hemoglobin 14.1 g/dl (12.0-16.0); Imm Gran Abs Auto 0.02 X10*3/uL (0.00-0.03); Imm Gran Pct Auto 0.3 % (0.0-0.4); Lymphocytes Absolute Auto 2.8 X10*3/uL (1.2-4.9); Lymphocytes Percent Auto 36.2 % (20-40); Mean Corpuscular HGB Conc 33.4 g/dl (31.0-35.0); Mean Corpuscular Hemoglobin 29.4 pg (27.0-33.0); Mean Corpuscular Volume 88.1 fL (80.0-98.0); Mean Platelet Volume 10.7 fL (9.4-12.3); Monocytes Absolute Auto 0.6 X10*3/uL (0.1-1.2); Monocytes Percent Auto 8.1 % (2-11); Neutrophils Percent Auto 51.5 % (45-73); Platelet Count 417 X10*3/uL (160-400); Red Blood Count 4.79 X10*6/uL (4.20-5.50); Red Cell Distribution Width 13.1 % (11.0-16.0); White Blood Count 7.8 X10*3/uL (4.8-10.8)
[2024-06-20 11:55] LABS: Alanine Aminotransferase 45 U/L (0-31); Albumin Level 4.1 g/dL (3.5-5.0); Alkaline Phosphatase 116 U/L (39-117); Anion Gap 13 (12-20); Aspartate Amino Transferase 33 U/L (5-31); Bilirubin Total 0.4 mg/dL (0.0-1.0); Blood Urea Nitrogen 11 mg/dL (9-16); Calcium 9.1 mg/dL (8.4-10.2); Carbon Dioxide 23 mmol/L (22-29); Chloride 109 mmol/L (96-108); Cholesterol 211 mg/dL (<200); Estimated Glomerular Filt Rate > 60; Glucose Fasting 132 mg/dL (60-99); HDL Cholesterol 41 mg/dL (>40); LDL Cholesterol Calculated 136 mg/dL (<100); Potassium 4.1 mmol/L (3.3-5.1); Sodium 141 mmol/L (135-145); Total Protein 7.5 g/dL (6.5-8.0); Triglycerides 173 mg/dL (<150)
[2024-06-20 12:10] LABS: Vitamin B12 287 pg/mL (200-900)
[2024-06-20 12:11] LABS: TSH reflex Free T4 1.62 uIU/mL (0.32-4.0)
[2024-06-24 14:48] LABS: Vitamin D 25-OH, D2 <4 ng/mL; Vitamin D 25-OH, D3 29 ng/mL; Vitamin D 25-OH, Total 29 ng/mL (30-100)
== END 2024-06-20 07:45 | disposition home or self-care (01) ==
LOC: HO.HMGCLDS 07:44
PROVIDERS: PCP Internal Medicine; Visit Provider Internal Medicine
DX: E11.9 Type 2 diabetes mellitus without complications (principal); E66.9 Obesity, unspecified; E55.9 Vitamin D deficiency, unspecified; Z91.09 Other allergy status, other than to drugs and biological substances; E78.9 Disorder of lipoprotein metabolism, unspecified; F41.1 Generalized anxiety disorder; I10 Essential (primary) hypertension; Z79.4 Long term (current) use of insulin
CPT/HCPCS: 36415; 80053; 80061; 82306; 82607; 84443; 85025

== ENCOUNTER 2024-06-22 09:37 | Outpatient (REF) | payer OTHER, SELFPAY ==
[2024-06-22 09:46] LABS: Appearance Urine Clear; Color Urine Yellow; Glucose Urine UA Negative (Negative); Leukocyte Esterase Urine Trace (Negative); Nitrite Urine Negative (Negative); UMIC TRIGGER UACC YES; Urine Blood Negative (Negative); Urine Ketones Negative (Negative); Urine Protein Negative (Neg-Trace)
[2024-06-22 09:49] LABS: Bacteria Urine None Seen (None Seen); Hyaline Casts Urine 0-2 /LPF (0-2); RBC Urine 0-2 /HPF (0-2); Squamous Epithelial Cell Urine 0-2 /HPF (0-2); WBC Urine 0-5 /HPF (0-5)
[2024-06-22 11:06] LABS: Creatinine Urine 52.71 mg/dL; Microalbumin Urine < 5.0 mg/L
== END 2024-06-22 09:38 | disposition home or self-care (01) ==
LOC: HO.LNP 09:37
PROVIDERS: Visit Provider Internal Medicine
DX: E11.9 Type 2 diabetes mellitus without complications (principal); Z79.4 Long term (current) use of insulin; E66.9 Obesity, unspecified; E55.9 Vitamin D deficiency, unspecified; Z91.09 Other allergy status, other than to drugs and biological substances; E78.9 Disorder of lipoprotein metabolism, unspecified; F41.1 Generalized anxiety disorder; I10 Essential (primary) hypertension
CPT/HCPCS: 81001; 82043; 82570

== ENCOUNTER 2024-08-05 15:04 | Outpatient (AMB) | payer OTHER, SELFPAY ==
--- NOTE | 2024-08-05 15:09 | MHC.PC.OV ---
Vital Signs 08/05/24 15:10 Height 5 ft 5 in Weight 188 lb 4 oz BMI 31.3 BP 132/84 Blood Pressure Location Rt brachial Position Sitting Pulse 98 Pulse Source Pulse Oximeter Pulse Oximetry (%) 98 Oxygen Delivery Method Room Air Intake Visit Reasons: 4M F/U Allergies Influenza Virus Vaccines Allergy (Verified 08/05/24 15:14) Angioedema metformin Adverse Reaction (Intermediate, Verified 08/05/24 15:14) GI upset Medication List - Last Reconciled 08/05/24 by Chato De Souza MD blood sugar diagnostic (Contour Next Test Strips) Test blood sugar twice a day blood-glucose meter (Contour Next Gen Meter) As directed cholecalciferol (vitamin D3) 50 mcg PO DAILY 30 days clobetasol 0.05% 1 appl topical BEDTIME clotrimazole-betamethasone 1-0.05 % 1 appl topical ONCE 30 days escitalopram oxalate 20 mg PO DAILY 90 days galcanezumab-gnlm (Emgality Pen) 120 mg subcut ONCE 30 days lancets (Microlet Lancet) Test blood sugar twice a day magnesium oxide 400 mg PO BEDTIME 30 days metoprolol succinate ER (Toprol XL) 50 mg (1/2 x 100 mg) PO DAILY montelukast 10 mg PO DAILY 90 days naratriptan take 1/2 - 1 tab at onset of headache; if no relief may repeat 1 tab after at least 4 hrs; max = 2 tabs/24 hrs orally PRN; 30 days omeprazole 20 mg PO DAILY riboflavin (vitamin B2) 400 mg (4 x 100 mg) PO DAILY 30 days rimegepant (Nurtec ODT) 75 mg PO ONCE PRN 30 days MDD 1 tab rosuvastatin 10 mg PO BEDTIME Tobacco use date assessed: 08/05/24 Dental Screening Dental Screen Date: 08/05/24 Did you have a dental visit in the last 12 months?: Yes Did you have a dental problem in the last 6 months where you did not have access to dental care?: No Was dental information given to patient?: Patient has dentist HPI 4M F/U HPI Details Patient is 64-year-old female with BMI of 31.3 Patient says that she has modified her diet and trying to exercise but has not been able to lose weight She would like to go on Wegovy injection Script sent, side effect reviewed with the patient Patient is diabetic however taking no medication Hemoglobin A1c is stable She is under lot of stress at home because of illness of her who has seizures Patient is also feeling depressed off and on however she is on Lexapro 20 mg daily Blood pressure is stable. Labs done June of this year reviewed Continue vitamin D supplement Allergies stable she is on Singulair GERD is stable with 20 mg of omeprazole Headaches stable Continue rosuvastatin 10 mg for lipid control Follow-up 3 months [facility] Medical History Palpitations Lichen sclerosus Depression Anxiety Elevated alkaline phosphatase level Dyslipidemia Vitamin D deficiency Obesity (BMI 30-39.9) Diabetes type 2, controlled Surgical History History of angiography History of sinus surgery History of colonoscopy History of appendectomy Family History Father Prostate cancer Mother Diabetes mellitus Dementia HTN (hypertension) Brother No problems noted. Brother No problems noted. Sister No problems noted. Daughter No problems noted. Sister Diabetes mellitus HTN (hypertension) Other Mental health disorder Social History Housing: House Alcohol intake: never Patient Tobacco Use Status: Never used Tobacco e-Cigarette/Vaping Use: Never Used Second Hand Smoke Exposure: No Current occupational status: employed Current occupation: [employer] Sexual orientation: Straight/Heterosexual Gender identity: Female Cognitive needs: No Hearing needs: No Vision needs: Yes Female Reproductive History Menstrual Age of Menarche: 14 Questionnaire PHQ-9 Over the last 2 weeks, how often have you been bothered by any of the following problems? 1. Little interest or pleasure in doing things: not at all 2. Feeling down, depressed, or hopeless: not at all 3. Trouble falling or staying asleep, or sleeping too much: not at all 4. Feeling tired or having little energy: not at all 5. Poor appetite or overeating: not at all 6. Feeling bad about yourself - or that you are a failure or have let yourself or your family down: not at all 7. Trouble concentrating on things, such as reading the newspaper or watching television: not at all 8. Moving or speaking so slowly that other people could have noticed. Or the opposite - being so fidgety or restless that you have been moving around a lot more than usual: not at all 9. Thoughts that you would be better off or of hurting yourself in some way: not at all Total score: 0 Depression Screening Interpretation: Negative Depression Screening Done: Yes 22611 - PHQ-9 Billing: Yes Source: Developed by Drs. Beto Griffin, Latonia Kimball, Dann Spaulding and colleagues, with an educational venancio from [employer]. Thrive Questionnaire Date Thrive assessed: 04/15/24 AUDIT C Alcohol Use Questionnaire (AUDIT-C) 1. How often do you have a drink containing alcohol?: Never 3. How often do you have six or more drinks on one occasion?: Never Total Score: 0 Score Reviewed/Action Taken: Yes AIDA-7 AMB Questionnaire AIDA-7 Date AIDA - 7 assessed: 04/15/24 Source: Developed by Drs. Beto Griffin, Latonia Kimball, Dann Spaulding and colleagues, with an educational venancio from [employer]. Review of Systems Const Denies chills and Denies fever(s) ENT Denies epistaxis and Denies nasal discharge Card Denies chest pain Resp Denies chest congestion, Denies cough and Denies hemoptysis GI Denies diarrhea and Denies nausea Skin/Breast Denies rash Neuro Reports no additional complaints Psych Reports no additional complaints Endo Reports no additional complaints Physical exam (Primary Care) Vital Signs: Last Vital Signs Pulse 98 08/05/24 15:10 BP 132/84 08/05/24 15:10 Pulse Ox 98 08/05/24 15:10 Oxygen Delivery Method Room Air 08/05/24 15:10 BMI result Body Mass Index 31.3 Tobacco/Smoking Status: Tobacco use Status Tobacco use date assessed 08/05/24 08/05/24 15:15 Patient Tobacco Use Status Never used Tobacco 08/05/24 15:09 e-Cigarette/Vaping Use Never Used 08/05/24 15:09 PHQ-9: PHQ-9 Score PHQ-9: Total score 0 08/05/24 15:31 Depression Screening Interpretation: Negative Thrive Assessment: Date of Thrive Assessment Date Thrive assessed 04/15/24 08/05/24 15:09 Const General: cooperative, comfortable and no acute distress Orientation/consciousness: patient oriented x3 HENMT Head: Yes normocephalic Eyes General: appearance normal, both eyes and all related structures Neck Neck: Yes supple Resp Effort & Inspection: normal respiratory effort, no cough and no stridor Cardio Rhythm: regular rhythm Heart sounds: S1 normal heart sound present and S2 normal heart sound present Skin General skin exam: turgor normal Neuro General: patient oriented x3, tone normal and moves all extremities Extrem Right lower extremity: no edema Left lower extremity: no edema Results AMB Hemoglobin A1c AMB Hemoglobin A1c 6.7 % Last Edit by Armnado Carvajal CMA on 08/05/24 15:53 Results Reviewed Results Reviewed: Laboratory Last Values Hgb A1c (Clinic) 6.7 % (4.0-6.0) H 08/05/24 15:52 Assessment and Plan Assessment & Plan (1) Diabetes type 2, controlled: Comment: diet controlled Code(s): E11.9 - Type 2 diabetes mellitus without complications Qualifiers: Diabetes mellitus complication status: without complication Diabetes mellitus termite inspector insulin use: with termite inspector use Qualified Code(s): E11.9 - Type 2 diabetes mellitus without complications; Z79.4 - custodial (current) use of insulin (2) Hypertension, essential: Code(s): I10 - Essential (primary) hypertension (3) Lipid disorder: Code(s): E78.9 - Disorder of lipoprotein metabolism, unspecified (4) Palpitations: Code(s): R00.2 - Palpitations (5) Obesity (BMI 30-39.9): Code(s): E66.9 - Obesity, unspecified (6) Vitamin D deficiency: Code(s): E55.9 - Vitamin D deficiency, unspecified (7) Environmental allergies: Code(s): Z91.09 - Other allergy status, other than to drugs and biological substances (8) Anxiety, generalized: Code(s): F41.1 - Generalized anxiety disorder (9) Major depression, recurrent: Code(s): F33.9 - Major depressive disorder, recurrent, unspecified Qualifiers: Active/Remission status: in full remission Qualified Code(s): F33.42 - Major depressive disorder, recurrent, in full remission (10) Stress at home: Code(s): F43.9 - Reaction to severe stress, unspecified Plan Patient is 64-year-old female with BMI of 31.3 Patient says that she has modified her diet and trying to exercise but has not been able to lose weight She would like to go on Wegovy injection Script sent, side effect reviewed with the patient Patient is diabetic however taking no medication Hemoglobin A1c is stable She is under lot of stress at home because of illness of her who has seizures Patient is also feeling depressed off and on however she is on Lexapro 20 mg daily Blood pressure is stable. Labs done June of this year reviewed Continue vitamin D supplement Allergies stable she is on Singulair GERD is stable with 20 mg of omeprazole Headaches stable Continue rosuvastatin 10 mg for lipid control Follow-up 3 months Orders: Orders AMB Hemoglobin A1c Today E11.9 - Type 2 diabetes mellitus without complications, Z13.9 - Encounter for screening, unspecified, Z79.4 - custodial (current) use of insulin Medications: New semaglutide for 4 weeks 0.25 mg (0.368 mL) subcut QWEEK 2 mL 0RF 30 days E11.69 - Type 2 diabetes mellitus with other specified complication, E66.9 - Obesity, unspecified, E78.9 - Disorder of lipoprotein metabolism, unspecified, I10 - Essential (primary) hypertension, R00.2 - Palpitations Coding Level of Care Code Est Pt Level 4 (52725) Diagnoses Controlled type 2 diabetes mellitus without complication, with long-term current use of insulin E11.9; Z79.4 Diabetes mellitus complication status: without complication Diabetes mellitus termite inspector insulin use: with nursing home use Hypertension, essential I10 Lipid disorder E78.9 Palpitations R00.2 Obesity (BMI 30-39.9) E66.9 Vitamin D deficiency E55.9 Environmental allergies Z91.09 Anxiety, generalized F41.1 Recurrent major depressive disorder, in full remission F33.42 Active/Remission status: in full remission Stress at home F43.9
[2024-08-05 15:10] VITALS: BP 132/84; PULSE 98; O2SAT 98; BMI 31.3
== END 2024-08-05 15:34 | disposition home or self-care (01) ==
PROVIDERS: PCP Internal Medicine; Visit Provider Internal Medicine
DX: E11.9 Type 2 diabetes mellitus without complications (principal); F33.42 Major depressive disorder, recurrent, in full remission; Z79.4 Long term (current) use of insulin; I10 Essential (primary) hypertension; E78.9 Disorder of lipoprotein metabolism, unspecified; R00.2 Palpitations; E66.9 Obesity, unspecified; E55.9 Vitamin D deficiency, unspecified; Z91.09 Other allergy status, other than to drugs and biological substances; F41.1 Generalized anxiety disorder; F43.9 Reaction to severe stress, unspecified

== ENCOUNTER → 2024-08-05 15:04 | Outpatient (BNVA) | payer OTHER, SELFPAY | PROVIDERS: PCP Internal Medicine; Visit Provider Internal Medicine | DX: E11.9 Type 2 diabetes mellitus without complications (principal); I10 Essential (primary) hypertension; E78.9 Disorder of lipoprotein metabolism, unspecified; R00.2 Palpitations; E66.9 Obesity, unspecified; E55.9 Vitamin D deficiency, unspecified; F41.1 Generalized anxiety disorder; F33.42 Major depressive disorder, recurrent, in full remission; F43.9 Reaction to severe stress, unspecified; Z91.09 Other allergy status, other than to drugs and biological substances | CPT/HCPCS: 83036; 96127 ==

== ENCOUNTER 2024-10-27 13:05 | Outpatient (REF) | payer OTHER, SELFPAY ==
[2024-10-27 14:17] LABS: Appearance Urine Cloudy; Color Urine Yellow; Glucose Urine UA Negative (Negative); Leukocyte Esterase Urine Large (3+) (Negative); Nitrite Urine Negative (Negative); Specific Gravity - Urine <= 1.005 (1.005-1.025); UMIC TRIGGER UACC YES; Urine Blood Trace (Negative); Urine Ketones Negative (Negative); Urine Protein Negative (Neg-Trace)
[2024-10-27 15:38] LABS: Bacteria Urine 4+ (None Seen); Hyaline Casts Urine 0-2 /LPF (0-2); RBC Urine 0-2 /HPF (0-2); Squamous Epithelial Cell Urine 0-2 /HPF (0-2); UACC Culture Trigger YES; WBC Urine >50 /HPF (0-5)
== END 2024-10-27 13:06 | disposition home or self-care (01) ==
LOC: HO.LAB 13:05
PROVIDERS: PCP Psychiatry & Neurology Neurology; Visit Provider Nurse Practitioner Family
DX: R30.0 Dysuria (principal); R82.79 Other abnormal findings on microbiological examination of urine
CPT/HCPCS: 81001; 87086; 87088; 87186

== ENCOUNTER 2024-10-28 15:07 | Outpatient (AMB) | payer OTHER, SELFPAY ==
[2024-10-28 15:09] VITALS: BP 122/78; PULSE 102; O2SAT 96; BMI 31.0
--- NOTE | 2024-10-28 15:09 | MHC.PC.OV ---
Vital Signs 10/28/24 15:09 Height 5 ft 5 in Weight 186 lb 4 oz BMI 31.0 BP 122/78 Blood Pressure Location Rt brachial Position Sitting Pulse 102 H Pulse Source Pulse Oximeter Pulse Oximetry (%) 96 Oxygen Delivery Method Room Air Intake Visit Reasons: 4M F/U Allergies Influenza Virus Vaccines Allergy (Verified 10/28/24 15:10) Angioedema metformin Adverse Reaction (Intermediate, Verified 10/28/24 15:10) GI upset Medication List - Last Reconciled 10/28/24 by Chato De Souza MD blood sugar diagnostic (Contour Next Test Strips) Test blood sugar twice a day blood-glucose meter (Contour Next Gen Meter) As directed cholecalciferol (vitamin D3) 50 mcg PO DAILY 30 days clobetasol 0.05% 1 appl topical BEDTIME clotrimazole-betamethasone 1-0.05 % 1 appl topical ONCE 30 days escitalopram oxalate 20 mg PO DAILY 90 days galcanezumab-gnlm (Emgality Pen) 120 mg subcut ONCE 30 days lancets (Microlet Lancet) Test blood sugar twice a day magnesium oxide 400 mg PO BEDTIME 30 days metoprolol succinate ER (Toprol XL) 50 mg (1/2 x 100 mg) PO DAILY montelukast 10 mg PO DAILY 90 days naratriptan take 1/2 - 1 tab at onset of headache; if no relief may repeat 1 tab after at least 4 hrs; max = 2 tabs/24 hrs orally PRN; 30 days nitrofurantoin macrocrystal 100 mg PO BID 7 days omeprazole 20 mg PO DAILY riboflavin (vitamin B2) 400 mg (4 x 100 mg) PO DAILY 30 days rimegepant (Nurtec ODT) 75 mg PO ONCE PRN 30 days MDD 1 tab rosuvastatin 10 mg PO BEDTIME semaglutide 0.25 mg (0.368 mL) subcut QWEEK 30 days Tobacco use date assessed: 10/28/24 Dental Screening Dental Screen Date: 10/28/24 Did you have a dental visit in the last 12 months?: Yes Did you have a dental problem in the last 6 months where you did not have access to dental care?: No Was dental information given to patient?: Patient has dentist HPI 4M F/U HPI Details Chief Complaint Regular follow-up appointment also having sinus pain past few days, COVID negative. Assessment and Plan 64-year-old female with a history of anxiety , hypertension, depression, allergies, migraine headache, obesity, diabetes and eczema presenting with mild respiratory symptoms. Her allergies appear inadequately controlled, contributing to nasal congestion and discomfort. There is an observed weight loss of two pounds only seen July with help of semaglutide injections 0.25 mg I have increased the dose .5 mg 1. Eczema Patient continues application of topical steroid creams. Advised maintaining consistent use to manage symptoms. 3. Anxiety Continues current medication regimen. Lot of stress at due to ill family members, Discussed the importance of medication adherence and potential adjustments if symptoms persist. Follow-up in one month to evaluate treatment efficacy. 4. Allergies With Inadequate Control Patient advised on the continued use of montelukast; using antihistamine [id number] 5. 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 6. Continue semaglutide higher dose for weight loss BMI continued to be in obesity range 7. Acute sinusitis to be treated with azithromycin and prednisone 8-hypertension stable continue medication Health Maintenance - Discussed potential vitamin D resistance and continuing supplementation strategies. - Recommendation for a fasting cholesterol test to be done at the patient's convenience. Patient Instructions - Maintain current anxiety medication and report any adverse effects. - Continue eczema management with prescribed steroid cream. Take azithromycin and prednisone for sinusitis Continue montelukast and antihistamine [id number] - Schedule and complete fasting cholesterol test. - Return for follow-up in one month to monitor anxiety, weight, and any progression of respiratory symptoms. [facility] Medical History Palpitations Lichen sclerosus Depression Anxiety Elevated alkaline phosphatase level Dyslipidemia Vitamin D deficiency Obesity (BMI 30-39.9) Diabetes type 2, controlled Surgical History History of angiography History of sinus surgery History of colonoscopy History of appendectomy Family History Father Prostate cancer Mother Diabetes mellitus Dementia HTN (hypertension) Brother No problems noted. Brother No problems noted. Sister No problems noted. Daughter No problems noted. Sister Diabetes mellitus HTN (hypertension) Other Mental health disorder Social History Housing: House Alcohol intake: never Patient Tobacco Use Status: Never used Tobacco e-Cigarette/Vaping Use: Never Used Second Hand Smoke Exposure: No Current occupational status: employed Current occupation: [employer] Sexual orientation: Straight/Heterosexual Gender identity: Female Cognitive needs: No Hearing needs: No Vision needs: Yes Female Reproductive History Menstrual Age of Menarche: 14 Questionnaire PHQ-9 Over the last 2 weeks, how often have you been bothered by any of the following problems? 1. Little interest or pleasure in doing things: not at all 2. Feeling down, depressed, or hopeless: several days 3. Trouble falling or staying asleep, or sleeping too much: not at all 4. Feeling tired or having little energy: several days 5. Poor appetite or overeating: not at all 6. Feeling bad about yourself - or that you are a failure or have let yourself or your family down: not at all 7. Trouble concentrating on things, such as reading the newspaper or watching television: several days 8. Moving or speaking so slowly that other people could have noticed. Or the opposite - being so fidgety or restless that you have been moving around a lot more than usual: not at all 9. Thoughts that you would be better off or of hurting yourself in some way: several days Total score: 4 Depression Screening Interpretation: Negative Depression Screening Done: Yes 39959 - PHQ-9 Billing: Yes Source: Developed by Drs. Beto Griffin, Latonia Kimball, Dann Spaulding and colleagues, with an educational venancio from [employer]. Thrive Questionnaire Date Thrive assessed: 10/28/24 I am a: Patient What is your living situation today?: I have a steady place to live Within the past 12 months, did the food you bought not last and you didn't have the money to get more?: Never true Within the past 12 months, did you worry whether your food would run out before you got money to buy more?: Never true Do you have trouble paying for medicines?: No Do you have trouble getting transportation to medical appointments?: No Do you have trouble paying your heating and electricity bill?: No Do you have trouble taking care of your child, family member or friend?: No Do you have trouble with day-to-day activities such as bathing, preparing meals, shopping, managing finances, etc.?: No Are you currently unemployed and looking for a job?: No Are you interested in more education?: No Please select the resources that you would like help with: None Currently or been in a relationship where the following occur: No concerns reported THRIVE Score: 0 AUDIT C Alcohol Use Questionnaire (AUDIT-C) 1. How often do you have a drink containing alcohol?: Never 3. How often do you have six or more drinks on one occasion?: Never Total Score: 0 Score Reviewed/Action Taken: Yes AIDA-7 AMB Questionnaire AIDA-7 Date AIDA - 7 assessed: 10/28/24 Feeling nervous, anxious, or on edge: 1 = Several days Not being able to stop or control worryin = Several days Worrying too much about different things: 1 = Several days Trouble relaxin = Several days Being so restless that it is hard to sit still: 1 = Several days Becoming easily annoyed or irritable: 0 = Not at all Feeling afraid as if something awful might happen: 0 = Not at all Total AIDA-7 score (0-4 normal; 5-9 mild; 10-14 moderate; 15-21 severe): 5 Source: Developed by Drs. Beto Griffin, Latonia Kimball, Dann Spaulding and colleagues, with an educational venancio from [employer]. AIDA-7 Assessment Billing AIDA-7 Assessment Tool: AIDA-7 Assessment 58097 Review of Systems Const Denies chills and Denies fever(s) ENT Denies epistaxis Card Denies chest pain Resp Denies chest congestion, Denies cough and Denies hemoptysis GI Denies diarrhea and Denies nausea Skin/Breast Denies rash Neuro Reports no additional complaints Psych Reports no additional complaints Endo Reports no additional complaints Physical exam (Primary Care) Vital Signs: Last Vital Signs Pulse 102 H 10/28/24 15:09 BP 122/78 10/28/24 15:09 Pulse Ox 96 10/28/24 15:09 Oxygen Delivery Method Room Air 10/28/24 15:09 BMI result Body Mass Index 31.0 Tobacco/Smoking Status: Tobacco use Status Tobacco use date assessed 10/28/24 10/28/24 15:17 Patient Tobacco Use Status Never used Tobacco 10/28/24 15:12 e-Cigarette/Vaping Use Never Used 10/28/24 15:12 PHQ-9: PHQ-9 Score PHQ-9: Total score 4 10/28/24 15:25 Depression Screening Interpretation: Negative Thrive Assessment: Date of Thrive Assessment Date Thrive assessed 10/28/24 10/28/24 15:17 Currently or been in a relationship where the following occur: No concerns reported Const General: cooperative, comfortable and no acute distress Orientation/consciousness: patient oriented x3 HENMT Other: Dull light reflex both ears, sinuses tender to pressure maxillary Head: Yes normocephalic Eyes General: appearance normal, both eyes and all related structures Neck Neck: Yes supple Resp Effort & Inspection: normal respiratory effort, no cough and no stridor Cardio Rhythm: regular rhythm Heart sounds: S1 normal heart sound present and S2 normal heart sound present Skin General skin exam: turgor normal Neuro General: patient oriented x3, tone normal and moves all extremities Extrem Right lower extremity: no edema Left lower extremity: no edema Coding Level of Care Code Est Pt Level 4 (52496) Diagnoses Diabetes mellitus type 2 in obese E11.69; E66.9 Acute non-recurrent maxillary sinusitis J01.00 Chronicity: acute Recurrence: non-recurrent Sinusitis location: maxillary Hypertension, essential I10 Obesity (BMI 30-39.9) E66.9 Vitamin D deficiency E55.9 Lipid disorder E78.9 Anxiety, generalized F41.1 Stress at home F43.9 Recurrent major depressive disorder, in full remission F33.42 Active/Remission status: in full remission Migraine without aura and without status migrainosus, not intractable G43.009 Intractability: not intractable Status migrainosus presence: without status migrainosus Additional Codes AIDA-7 Assessment Billing - AIDA-7 Assessment Tool: AIDA-7 Assessment 15528 ([id number]) PHQ-9 - 82799 - PHQ-9 Billing: Yes ([id number]) Assessment & Plan Assessment & Plan (1) Diabetes mellitus type 2 in obese: Code(s): E11.69 - Type 2 diabetes mellitus with other specified complication; E66.9 - Obesity, unspecified Category: Medical (2) Sinusitis: Code(s): J32.9 - Chronic sinusitis, unspecified Category: Medical Qualifiers: Chronicity: acute Recurrence: non-recurrent Sinusitis location: maxillary Qualified Code(s): J01.00 - Acute maxillary sinusitis, unspecified (3) Hypertension, essential: Code(s): I10 - Essential (primary) hypertension Category: Medical (4) Obesity (BMI 30-39.9): Code(s): E66.9 - Obesity, unspecified Category: Medical (5) Vitamin D deficiency: Code(s): E55.9 - Vitamin D deficiency, unspecified Category: Medical (6) Lipid disorder: Code(s): E78.9 - Disorder of lipoprotein metabolism, unspecified Category: Medical (7) Anxiety, generalized: Code(s): F41.1 - Generalized anxiety disorder Category: Medical (8) Stress at home: Code(s): F43.9 - Reaction to severe stress, unspecified Category: Social Hx (9) Major depression, recurrent: Code(s): F33.9 - Major depressive disorder, recurrent, unspecified Category: Medical Qualifiers: Active/Remission status: in full remission Qualified Code(s): F33.42 - Major depressive disorder, recurrent, in full remission (10) Migraine without aura: Comment: post-concussive Code(s): G43.009 - Migraine without aura, not intractable, without status migrainosus Category: Medical Qualifiers: Intractability: not intractable Status migrainosus presence: without status migrainosus Qualified Code(s): G43.009 - Migraine without aura, not intractable, without status migrainosus Plan Chief Complaint Regular follow-up appointment also having sinus pain past few days, COVID negative. Assessment and Plan 64-year-old female with a history of anxiety , hypertension, depression, allergies, migraine headache, obesity, diabetes and eczema presenting with mild respiratory symptoms. Her allergies appear inadequately controlled, contributing to nasal congestion and discomfort. There is an observed weight loss of two pounds only seen July with help of semaglutide injections 0.25 mg I have increased the dose .5 mg 1. Eczema Patient continues application of topical steroid creams. Advised maintaining consistent use to manage symptoms. 3. Anxiety Continues current medication regimen. Lot of stress at due to ill family members, Discussed the importance of medication adherence and potential adjustments if symptoms persist. Follow-up in one month to evaluate treatment efficacy. 4. Allergies With Inadequate Control Patient advised on the continued use of montelukast; using antihistamine [id number] 5. 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 6. Continue semaglutide higher dose for weight loss BMI continued to be in obesity range 7. Acute sinusitis to be treated with azithromycin and prednisone 8-hypertension stable continue medication Health Maintenance - Discussed potential vitamin D resistance and continuing supplementation strategies. - Recommendation for a fasting cholesterol test to be done at the patient's convenience. Patient Instructions - Maintain current anxiety medication and report any adverse effects. - Continue eczema management with prescribed steroid cream. Take azithromycin and prednisone for sinusitis Continue montelukast and antihistamine [id number] - Schedule and complete fasting cholesterol test. - Return for follow-up in one month to monitor anxiety, weight, and any progression of respiratory symptoms. Orders: Orders Hemoglobin A1c Today E11.69 - Type 2 diabetes mellitus with other specified complication, E11.9 - Type 2 diabetes mellitus without complications, E55.9 - Vitamin D deficiency, unspecified, E66.9 - Obesity, unspecified, E78.9 - Disorder of lipoprotein metabolism, unspecified, F33.42 - Major depressive disorder, recurrent, in full remission, F41.1 - Generalized anxiety disorder, F43.9 - Reaction to severe stress, unspecified, G43.009 - Migraine without aura, not intractable, without status migrainosus, I10 - Essential (primary) hypertension, J32.9 - Chronic sinusitis, unspecified, Z79.4 - snf (current) use of insulin Amylase Today E11.69 - Type 2 diabetes mellitus with other specified complication, E11.9 - Type 2 diabetes mellitus without complications, E55.9 - Vitamin D deficiency, unspecified, E66.9 - Obesity, unspecified, E78.9 - Disorder of lipoprotein metabolism, unspecified, F33.42 - Major depressive disorder, recurrent, in full remission, F41.1 - Generalized anxiety disorder, F43.9 - Reaction to severe stress, unspecified, G43.009 - Migraine without aura, not intractable, without status migrainosus, I10 - Essential (primary) hypertension, J32.9 - Chronic sinusitis, unspecified, Z79.4 - bed bug exterminator (current) use of insulin Lipase Today E11.69 - Type 2 diabetes mellitus with other specified complication, E11.9 - Type 2 diabetes mellitus without complications, E55.9 - Vitamin D deficiency, unspecified, E66.9 - Obesity, unspecified, E78.9 - Disorder of lipoprotein metabolism, unspecified, F33.42 - Major depressive disorder, recurrent, in full remission, F41.1 - Generalized anxiety disorder, F43.9 - Reaction to severe stress, unspecified, G43.009 - Migraine without aura, not intractable, without status migrainosus, I10 - Essential (primary) hypertension, J32.9 - Chronic sinusitis, unspecified, Z79.4 - bed bug exterminator (current) use of insulin TSH reflex Free T4 Today E11.69 - Type 2 diabetes mellitus with other specified complication, E11.9 - Type 2 diabetes mellitus without complications, E55.9 - Vitamin D deficiency, unspecified, E66.9 - Obesity, unspecified, E78.9 - Disorder of lipoprotein metabolism, unspecified, F33.42 - Major depressive disorder, recurrent, in full remission, F41.1 - Generalized anxiety disorder, F43.9 - Reaction to severe stress, unspecified, G43.009 - Migraine without aura, not intractable, without status migrainosus, I10 - Essential (primary) hypertension, J32.9 - Chronic sinusitis, unspecified, Z79.4 - bed bug exterminator (current) use of insulin Microalbumin, Random (w Creat) Today E11.69 - Type 2 diabetes mellitus with other specified complication, E11.9 - Type 2 diabetes mellitus without complications, E55.9 - Vitamin D deficiency, unspecified, E66.9 - Obesity, unspecified, E78.9 - Disorder of lipoprotein metabolism, unspecified, F33.42 - Major depressive disorder, recurrent, in full remission, F41.1 - Generalized anxiety disorder, F43.9 - Reaction to severe stress, unspecified, G43.009 - Migraine without aura, not intractable, without status migrainosus, I10 - Essential (primary) hypertension, J32.9 - Chronic sinusitis, unspecified, Z79.4 - snf (current) use of insulin Magnesium Today E11.69 - Type 2 diabetes mellitus with other specified complication, E11.9 - Type 2 diabetes mellitus without complications, E55.9 - Vitamin D deficiency, unspecified, E66.9 - Obesity, unspecified, E78.9 - Disorder of lipoprotein metabolism, unspecified, F33.42 - Major depressive disorder, recurrent, in full remission, F41.1 - Generalized anxiety disorder, F43.9 - Reaction to severe stress, unspecified, G43.009 - Migraine without aura, not intractable, without status migrainosus, I10 - Essential (primary) hypertension, J32.9 - Chronic sinusitis, unspecified, Z79.4 - bed bug exterminator (current) use of insulin Comprehensive [place]. Panel Fast Today E11.69 - Type 2 diabetes mellitus with other specified complication, E11.9 - Type 2 diabetes mellitus without complications, E55.9 - Vitamin D deficiency, unspecified, E66.9 - Obesity, unspecified, E78.9 - Disorder of lipoprotein metabolism, unspecified, F33.42 - Major depressive disorder, recurrent, in full remission, F41.1 - Generalized anxiety disorder, F43.9 - Reaction to severe stress, unspecified, G43.009 - Migraine without aura, not intractable, without status migrainosus, I10 - Essential (primary) hypertension, J32.9 - Chronic sinusitis, unspecified, Z79.4 - snf (current) use of insulin Complete Blood Count Auto Diff Today E11.69 - Type 2 diabetes mellitus with other specified complication, E11.9 - Type 2 diabetes mellitus without complications, E55.9 - Vitamin D deficiency, unspecified, E66.9 - Obesity, unspecified, E78.9 - Disorder of lipoprotein metabolism, unspecified, F33.42 - Major depressive disorder, recurrent, in full remission, F41.1 - Generalized anxiety disorder, F43.9 - Reaction to severe stress, unspecified, G43.009 - Migraine without aura, not intractable, without status migrainosus, I10 - Essential (primary) hypertension, J32.9 - Chronic sinusitis, unspecified, Z79.4 - snf (current) use of insulin Lipid Panel Today E11.69 - Type 2 diabetes mellitus with other specified complication, E11.9 - Type 2 diabetes mellitus without complications, E55.9 - Vitamin D deficiency, unspecified, E66.9 - Obesity, unspecified, E78.9 - Disorder of lipoprotein metabolism, unspecified, F33.42 - Major depressive disorder, recurrent, in full remission, F41.1 - Generalized anxiety disorder, F43.9 - Reaction to severe stress, unspecified, G43.009 - Migraine without aura, not intractable, without status migrainosus, I10 - Essential (primary) hypertension, J32.9 - Chronic sinusitis, unspecified, Z79.4 - snf (current) use of insulin Vitamin B12 Today E11.69 - Type 2 diabetes mellitus with other specified complication, E11.9 - Type 2 diabetes mellitus without complications, E55.9 - Vitamin D deficiency, unspecified, E66.9 - Obesity, unspecified, E78.9 - Disorder of lipoprotein metabolism, unspecified, F33.42 - Major depressive disorder, recurrent, in full remission, F41.1 - Generalized anxiety disorder, F43.9 - Reaction to severe stress, unspecified, G43.009 - Migraine without aura, not intractable, without status migrainosus, I10 - Essential (primary) hypertension, J32.9 - Chronic sinusitis, unspecified, Z79.4 - snf (current) use of insulin Vitamin D 25-OH (D2 and D3) Today E11.69 - Type 2 diabetes mellitus with other specified complication, E11.9 - Type 2 diabetes mellitus without complications, E55.9 - Vitamin D deficiency, unspecified, E66.9 - Obesity, unspecified, E78.9 - Disorder of lipoprotein metabolism, unspecified, F33.42 - Major depressive disorder, recurrent, in full remission, F41.1 - Generalized anxiety disorder, F43.9 - Reaction to severe stress, unspecified, G43.009 - Migraine without aura, not intractable, without status migrainosus, I10 - Essential (primary) hypertension, J32.9 - Chronic sinusitis, unspecified, Z79.4 - snf (current) use of insulin Medications: New prednisone 20 mg PO ONCE 5 tabs 0RF 5 days azithromycin Take 2 tablets today then 1 daily 250 mg PO ONCE 6 tabs 0RF 5 days J06.9 - Acute upper respiratory infection, unspecified Changed From semaglutide for 4 weeks 0.25 mg (0.368 mL) subcut QWEEK 30 days 2 mL 0RF E11.69 - Type 2 diabetes mellitus with other specified complication, E66.9 - Obesity, unspecified, E78.9 - Disorder of lipoprotein metabolism, unspecified, I10 - Essential (primary) hypertension, R00.2 - Palpitations To semaglutide for 4 weeks 0.5 mg (0.736 mL) subcut QWEEK 3.68 mL 0RF 30 days E11.69 - Type 2 diabetes mellitus with other specified complication, E66.9 - Obesity, unspecified, E78.9 - Disorder of lipoprotein metabolism, unspecified, I10 - Essential (primary) hypertension, R00.2 - Palpitations
== END 2024-10-28 15:49 | disposition home or self-care (01) ==
PROVIDERS: PCP Internal Medicine; Visit Provider Internal Medicine
DX: E11.69 Type 2 diabetes mellitus with other specified complication (principal); E66.9 Obesity, unspecified; F33.42 Major depressive disorder, recurrent, in full remission; Z68.31 Body mass index [BMI] 31.0-31.9, adult; J01.00 Acute maxillary sinusitis, unspecified; I10 Essential (primary) hypertension; E55.9 Vitamin D deficiency, unspecified; E78.9 Disorder of lipoprotein metabolism, unspecified; F41.1 Generalized anxiety disorder; F43.9 Reaction to severe stress, unspecified; G43.009 Migraine without aura, not intractable, without status migrainosus

== ENCOUNTER → 2024-10-28 15:07 | Outpatient (BNVA) | payer OTHER, SELFPAY | PROVIDERS: PCP Internal Medicine; Visit Provider Internal Medicine | DX: E11.69 Type 2 diabetes mellitus with other specified complication (principal); E66.9 Obesity, unspecified; J01.00 Acute maxillary sinusitis, unspecified; I10 Essential (primary) hypertension; E55.9 Vitamin D deficiency, unspecified; E78.9 Disorder of lipoprotein metabolism, unspecified; F41.1 Generalized anxiety disorder; F43.9 Reaction to severe stress, unspecified; F33.42 Major depressive disorder, recurrent, in full remission; G43.009 Migraine without aura, not intractable, without status migrainosus; R00.2 Palpitations; L30.9 Dermatitis, unspecified | CPT/HCPCS: 96127 ==

== ENCOUNTER 2024-11-19 13:01 | Outpatient (AMB) | payer OTHER, SELFPAY ==
--- NOTE | 2024-11-19 13:19 | MHC.OFFVIS ---
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: No Accompanied by: Self / Same As Patient Allergies Influenza Virus Vaccines Allergy (Verified 10/28/24 15:10) Angioedema metformin Adverse Reaction (Intermediate, Verified 10/28/24 15:10) GI upset Medication List - Last Reconciled 11/19/24 by Rajendra Jesus MD blood sugar diagnostic (Contour Next Test Strips) Test blood sugar twice a day blood-glucose meter (Contour Next Gen Meter) As directed cholecalciferol (vitamin D3) 50 mcg PO DAILY 30 days clobetasol 0.05% 1 appl topical BEDTIME clotrimazole-betamethasone 1-0.05 % 1 appl topical ONCE 30 days escitalopram oxalate 20 mg PO DAILY 90 days galcanezumab-gnlm (Emgality Pen) 120 mg subcut ONCE 30 days lancets (Microlet Lancet) Test blood sugar twice a day magnesium oxide 400 mg PO BEDTIME 30 days metoprolol succinate ER (Toprol XL) 50 mg (1/2 x 100 mg) PO DAILY montelukast 10 mg PO DAILY 90 days naratriptan take 1/2 - 1 tab at onset of headache; if no relief may repeat 1 tab after at least 4 hrs; max = 2 tabs/24 hrs orally PRN; 30 days omeprazole 20 mg PO DAILY riboflavin (vitamin B2) 400 mg (4 x 100 mg) PO DAILY 30 days rimegepant (Nurtec ODT) 75 mg PO ONCE PRN 30 days MDD 1 tab rosuvastatin 10 mg PO BEDTIME semaglutide 0.5 mg (0.736 mL) subcut QWEEK 30 days HPI Comments Details: Ca comes for follow-up. She has not been taking metoprolol for longer than 2 weeks. She says she was feeling terrible on metoprolol. Without metoprolol she feels less tired and with better exercise capacity. She did not ever mentioned that in the past. She denies any tachycardia or fast heart rate. Denies any lightheadedness, syncope. Blood pressure is slightly elevated. Denies any orthopnea, PND, leg edema. PFSH Medical History Palpitations Lichen sclerosus Depression Anxiety Elevated alkaline phosphatase level Dyslipidemia Vitamin D deficiency Obesity (BMI 30-39.9) Diabetes type 2, controlled Surgical History History of angiography History of sinus surgery History of colonoscopy History of appendectomy Family History Father Prostate cancer Mother Diabetes mellitus Dementia HTN (hypertension) Brother No problems noted. Brother No problems noted. Sister No problems noted. Daughter No problems noted. Sister Diabetes mellitus HTN (hypertension) Other Mental health disorder Social History Housing: House Alcohol intake: never Patient Tobacco Use Status: Never used Tobacco e-Cigarette/Vaping Use: Never Used Second Hand Smoke Exposure: No Current occupational status: employed Current occupation: [employer] Sexual orientation: Straight/Heterosexual Gender identity: Female Cognitive needs: No Hearing needs: No Vision needs: Yes Female Reproductive History Menstrual Age of Menarche: 14 Review of Systems Const Denies chills, Denies fatigue, Denies fever(s), Denies weight gain and Denies weight loss ENT Denies dizziness Card Denies chest pain, Denies leg edema, Denies lightheadedness, Denies palpitations, Denies dyspnea on exertion, Denies orthopnea and Denies other Resp Denies cough and Denies dyspnea on exertion GI Denies hematochezia and Denies change in stool character Musc Denies abnormal gait, Denies muscle weakness, Denies numbness, Denies radiating pain into limb and Denies tingling Neuro Denies abnormal gait, Denies dizziness, Denies numbness and Denies tingling Endo Denies fatigue and Denies palpitations Physical Exam Vital Signs: Last Vital Signs Pulse 104 H 11/19/24 13:24 BP 132/72 11/19/24 13:24 BMI result Body Mass Index 30.6 Const General: cooperative, comfortable, no acute distress, alert, awake, Physically active and well groomed Nutritional Appearance: overweight Orientation/consciousness: patient oriented x3 Limitations: no limitations Neck Neck: Yes trachea midline, Yes supple and Yes no JVD Resp Effort & Inspection: normal respiratory effort Auscultation: clear to auscultation bilaterally Cardio Jugular venous distension: no JVD Palpation: normal PMI Rate: regular rate Rhythm: regular rhythm Heart sounds: S1 normal heart sound present, S2 normal heart sound present, no click, no gallops, no murmurs and no rubs GI Auscultation: normal bowel sounds Skin General skin exam: no rashes or lesions noted Neuro General: patient oriented x3 and no focal motor deficits Extrem General: Yes no clubbing, cyanosis or edema Office Procedures EKG Details: EKG shows sinus tachycardia otherwise normal EKG [id number], Complete Assessment & Plan Assessment & Plan (1) Hypertension, essential: Code(s): I10 - Essential (primary) hypertension Category: Medical Plan: Hypertension borderline elevated, currently not on any medications, she self with Markel her metoprolol therapy. She is noted to have sinus tachycardia today. She has prior history of inappropriate sinus tachycardia. She is currently feeling well. Although we discussed about management of high blood pressure given her multiple risk factors. She will prefer to use an alternative agent. Will start her on Bystolic 2.5 mg daily given her side effects to metoprolol therapy. The prescription has been provided. Advised to call me with any side effects and not self medicate herself. Continue aggressive risk factor modification. Continue aggressive control of diabetes, consider GLP 1 antagonist given her metabolic syndrome pattern on her risk factor profile. Target goal LDL less than 100 mg/dL. Continue statin therapy. Encouraged to increase activity level as tolerated. Follow up in the clinic in 1 year's time, sooner p.r.n.. Thank you for allowing me to partake in his care Medications: New nebivolol (Bystolic) 2.5 mg PO DAILY 30 tabs 3RF Coding Level of Care Code Est Pt Level 3 (03239) Complex EM visit Add On G2211 Diagnoses Hypertension, essential I10 CPT Codes EKG - CPT: 85440-[id number], Complete ([id number])
[2024-11-19 13:24] VITALS: BP 132/72; PULSE 104; BMI 30.6
== END 2024-11-19 13:46 | disposition home or self-care (01) ==
PROVIDERS: PCP Internal Medicine; Visit Provider Internal Medicine Cardiovascular Disease
DX: I10 Essential (primary) hypertension (principal)
CPT/HCPCS: 93010; 99213

== ENCOUNTER → 2024-11-19 13:01 | Outpatient (BNVA) | payer OTHER, SELFPAY | PROVIDERS: PCP Internal Medicine; Visit Provider Internal Medicine Cardiovascular Disease | DX: I10 Essential (primary) hypertension (principal) | CPT/HCPCS: 93005 ==

== ENCOUNTER 2024-11-20 12:55 | Outpatient (AMB) | payer OTHER, SELFPAY ==
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
[2024-11-20 12:55] VITALS: BMI 30.4
== END 2024-11-20 15:55 | disposition home or self-care (01) ==
PROVIDERS: PCP Internal Medicine; Visit Provider Nurse Practitioner Family
DX: G44.309 Post-traumatic headache, unspecified, not intractable (principal); F07.81 Postconcussional syndrome
CPT/HCPCS: 99214

== ENCOUNTER → 2024-11-20 12:55 | Outpatient (BNVA) | payer OTHER, SELFPAY | PROVIDERS: PCP Internal Medicine; Visit Provider Nurse Practitioner Family ==

== ENCOUNTER 2024-12-04 06:46 | Outpatient (REF) | payer OTHER, SELFPAY ==
[2024-12-04 07:04] LABS: MANUAL DIFF FLAG NO
[2024-12-04 07:19] LABS: Estimated Average Glucose 131 mg/dL; Hemoglobin A1C 166.2361 umol/L; Hemoglobin A1c % 6.2 % (<6.0); Total Hemoglobin (HGBA1C) 3758.0777 umol/L
[2024-12-04 07:21] LABS: Basophils Absolute Auto 0.1 X10*3/uL (0.0-0.2); Basophils Percent Auto 0.9 % (0-2); Eosinophils Absolute Auto 0.3 X10*3/uL (0.0-0.4); Eosinophils Percent Auto 2.6 % (0-4); Hematocrit 42.9 % (37.0-47.0); Hemoglobin 14.4 g/dl (12.0-16.0); Imm Gran Abs Auto 0.02 X10*3/uL (0.00-0.03); Imm Gran Pct Auto 0.2 % (0.0-0.4); Lymphocytes Absolute Auto 3.6 X10*3/uL (1.2-4.9); Lymphocytes Percent Auto 34.5 % (20-40); Mean Corpuscular HGB Conc 33.6 g/dl (31.0-35.0); Mean Corpuscular Hemoglobin 29.4 pg (27.0-33.0); Mean Corpuscular Volume 87.7 fL (80.0-98.0); Mean Platelet Volume 10.1 fL (9.4-12.3); Monocytes Absolute Auto 0.9 X10*3/uL (0.1-1.2); Monocytes Percent Auto 8.6 % (2-11); Neutrophils Absolute Auto 5.5 x10*3/uL (2.0-8.3); Neutrophils Percent Auto 53.2 % (45-73); Platelet Count 472 X10*3/uL (160-400); Red Blood Count 4.89 X10*6/uL (4.20-5.50); Red Cell Distribution Width 13.5 % (11.0-16.0); White Blood Count 10.3 X10*3/uL (4.8-10.8)
[2024-12-04 07:58] LABS: Alanine Aminotransferase 37 U/L (0-31); Albumin Level 4.3 g/dL (3.5-5.0); Alkaline Phosphatase 115 U/L (39-117); Amylase 43 U/L (28-100); Anion Gap 11 (12-20); Aspartate Amino Transferase 30 U/L (5-31); Bilirubin Total 0.3 mg/dL (0.0-1.0); Blood Urea Nitrogen 9 mg/dL (9-16); Calcium 9.2 mg/dL (8.4-10.2); Carbon Dioxide 23 mmol/L (22-29); Chloride 111 mmol/L (96-108); Cholesterol 199 mg/dL (<200); Estimated Glomerular Filt Rate > 60; Glucose Fasting 117 mg/dL (60-99); HDL Cholesterol 37 mg/dL (>40); LDL Cholesterol Calculated 127 mg/dL (<100); Lipase 23 U/L (8-78); Magnesium 2.4 mg/dL (1.6-2.6); Potassium 4.3 mmol/L (3.3-5.1); Sodium 141 mmol/L (135-145); Total Protein 8.1 g/dL (6.5-8.0); Triglycerides 177 mg/dL (<150)
[2024-12-04 08:13] LABS: TSH reflex Free T4 2.06 uIU/mL (0.32-4.0)
[2024-12-04 08:15] LABS: Vitamin B12 271 pg/mL (200-900)
[2024-12-04 08:20] LABS: Appearance Urine Clear; Color Urine Yellow; Glucose Urine UA Negative (Negative); Leukocyte Esterase Urine Small (1+) (Negative); Nitrite Urine Negative (Negative); Specific Gravity - Urine <= 1.005 (1.005-1.025); UMIC TRIGGER UACC YES; Urine Blood Moderate (2+) (Negative); Urine Ketones Negative (Negative); Urine Protein Negative (Neg-Trace)
[2024-12-04 08:40] LABS: Microalbumin Urine < 5.0 mg/L
[2024-12-04 08:50] LABS: Bacteria Urine None Seen (None Seen); Hyaline Casts Urine 0-2 /LPF (0-2); Squamous Epithelial Cell Urine 0-2 /HPF (0-2); UACC Culture Trigger YES; WBC Urine 0-5 /HPF (0-5)
[2024-12-11 00:57] LABS: Vitamin D 25-OH, D2 <4 ng/mL; Vitamin D 25-OH, D3 32 ng/mL; Vitamin D 25-OH, Total 32 ng/mL (30-100)
== END 2024-12-04 06:47 | disposition home or self-care (01) ==
LOC: HO.LAB 06:46
PROVIDERS: PCP Internal Medicine; Visit Provider Internal Medicine
DX: E11.69 Type 2 diabetes mellitus with other specified complication (principal); Z79.4 Long term (current) use of insulin; E66.9 Obesity, unspecified; E55.9 Vitamin D deficiency, unspecified; E78.9 Disorder of lipoprotein metabolism, unspecified; F41.1 Generalized anxiety disorder; I10 Essential (primary) hypertension; F43.9 Reaction to severe stress, unspecified; F33.42 Major depressive disorder, recurrent, in full remission; G43.009 Migraine without aura, not intractable, without status migrainosus; J32.9 Chronic sinusitis, unspecified; R30.0 Dysuria
CPT/HCPCS: 36415; 80053; 80061; 81001; 82150; 82306; 82570; 82607; 83036; 83690; 83735; 84443; 85025; 87086

== ENCOUNTER 2024-12-11 15:36 | Outpatient (AMB) | payer OTHER, SELFPAY ==
[2024-12-11 15:38] VITALS: BP 128/72; PULSE 93; O2SAT 97; BMI 30.6
--- NOTE | 2024-12-11 15:38 | MHC.PC.OV ---
Vital Signs 12/11/24 15:38 Height 5 ft 5 in Weight 184 lb 3 oz BMI 30.6 BP 128/72 Blood Pressure Location Rt brachial Position Sitting Pulse 93 Pulse Source Pulse Oximeter Pulse Oximetry (%) 97 Oxygen Delivery Method Room Air Intake Visit Reasons: 6wk follow up Allergies Influenza Virus Vaccines Allergy (Verified 12/11/24 15:38) Angioedema metformin Adverse Reaction (Intermediate, Verified 12/11/24 15:38) GI upset Medication List - Last Reconciled 12/11/24 by Chato De Souza MD blood sugar diagnostic (Contour Next Test Strips) Test blood sugar twice a day blood-glucose meter (Contour Next Gen Meter) As directed cholecalciferol (vitamin D3) 50 mcg PO DAILY 30 days clobetasol 0.05% 1 appl topical BEDTIME clotrimazole-betamethasone 1-0.05 % 1 appl topical ONCE 30 days cyanocobalamin (vitamin B-12) 1,000 mcg PO DAILY 90 days escitalopram oxalate 20 mg PO DAILY 90 days lancets (Microlet Lancet) Test blood sugar twice a day metoprolol succinate ER (Toprol XL) 25 mg PO DAILY montelukast 10 mg PO DAILY 90 days omeprazole 20 mg PO DAILY riboflavin (vitamin B2) 400 mg PO DAILY 30 days rimegepant (Nurtec ODT) 75 mg PO ONCE PRN 30 days MDD 1 tab rosuvastatin 10 mg PO BEDTIME semaglutide 0.5 mg (0.736 mL) subcut QWEEK 30 days Tobacco use date assessed: 12/11/24 Dental Screening Dental Screen Date: 12/11/24 Did you have a dental visit in the last 12 months?: Yes Did you have a dental problem in the last 6 months where you did not have access to dental care?: No Was dental information given to patient?: Patient has dentist HPI 6wk follow up HPI Details - The patient is a 64-year-old female presenting for 1 month follow-up appointment on labs and weight - Type 2 Diabetes Mellitus: Hemoglobin A1c at 6.2%. Obesity: Current medication includes semaglutide, dosage increased from 0.5 mg to 1 mg, patient is to monitor her weight and get back to me in 3 months - Hematuria: Patient reports presence of blood in urine discovered through blood tests. Past treatment for a urinary tract infection in October , urine culture did not grow any pathogen Referral to urology was placed, patient would like to be treated with antibiotic and repeat urine before booking the appointment with the urologist - vitamin-B level is low I have sent supplement Problem List - Type 2 Diabetes Mellitus - Hematuria - Urinary Tract Infection - Weight Concerns (related to diabetes management) - low vitamin B12 Patient Instructions - Continue taking the increased semaglutide dosage at 1 mg. - Take the prescribed antibiotic for one week. - Complete the follow-up urine test after completing the antibiotics. - Monitor weight regularly and report significant changes in 3 months - Attend physical examination appointment scheduled for April unless urgent concerns arise sooner. 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 - Genitourinary: Reports hematuria and previous urinary tract infections with associated discomfort. - Endocrine: Denies significant weight loss. - Musculoskeletal: Reports increased physical activity to assist with weight management. - General: No fever no chills - Neurological: No headaches no dizziness - Ear nose throat: No sore throat no hearing difficulty no ear pain - Cardiovascular: No syncope, no chest pain, no palpitations - Gastrointestinal: No nausea vomiting or diarrhea Physical Exam - General: No acute distress - HEENT: No acute findings - Neck: Supple - Respiratory system: Able to talk in full sentences, no audible wheeze - cardiovascular: S1-S2 regular in rate and rhythm - Gastrointestinal: No pain - Extremities: No new findings - CT MRI TECHNOLOGIST: Alert awake oriented x3 motor sensory intact - Skin: Normal turgor PFSH Medical History Palpitations Lichen sclerosus Depression Anxiety Elevated alkaline phosphatase level Dyslipidemia Vitamin D deficiency Obesity (BMI 30-39.9) Diabetes type 2, controlled Surgical History History of angiography History of sinus surgery History of colonoscopy History of appendectomy Family History Father Prostate cancer Mother Diabetes mellitus Dementia HTN (hypertension) Brother No problems noted. Brother No problems noted. Sister No problems noted. Daughter No problems noted. Sister Diabetes mellitus HTN (hypertension) Other Mental health disorder Social History Housing: House Alcohol intake: never Patient Tobacco Use Status: Never used Tobacco e-Cigarette/Vaping Use: Never Used Second Hand Smoke Exposure: No Current occupational status: employed Current occupation: [employer] Sexual orientation: Straight/Heterosexual Gender identity: Female Cognitive needs: No Hearing needs: No Vision needs: Yes Female Reproductive History Menstrual Age of Menarche: 14 Questionnaire PHQ-9 Over the last 2 weeks, how often have you been bothered by any of the following problems? 1. Little interest or pleasure in doing things: not at all 2. Feeling down, depressed, or hopeless: more than half the days 3. Trouble falling or staying asleep, or sleeping too much: not at all 4. Feeling tired or having little energy: several days 5. Poor appetite or overeating: several days 6. Feeling bad about yourself - or that you are a failure or have let yourself or your family down: not at all 7. Trouble concentrating on things, such as reading the newspaper or watching television: not at all 8. Moving or speaking so slowly that other people could have noticed. Or the opposite - being so fidgety or restless that you have been moving around a lot more than usual: not at all 9. Thoughts that you would be better off or of hurting yourself in some way: not at all Total score: 4 Depression Screening Interpretation: Negative Depression Screening Done: Yes 47392 - PHQ-9 Billing: Yes Source: Developed by Drs. Beto Griffin, Latonia Kimball, Dann Spaulding and colleagues, with an educational venancio from [employer]. Thrive Questionnaire Date Thrive assessed: 12/11/24 I am a: Patient What is your living situation today?: I have a steady place to live Within the past 12 months, did the food you bought not last and you didn't have the money to get more?: Never true Within the past 12 months, did you worry whether your food would run out before you got money to buy more?: Never true Do you have trouble paying for medicines?: No Do you have trouble getting transportation to medical appointments?: No Do you have trouble paying your heating and electricity bill?: No Do you have trouble taking care of your child, family member or friend?: No Do you have trouble with day-to-day activities such as bathing, preparing meals, shopping, managing finances, etc.?: No Are you currently unemployed and looking for a job?: No Are you interested in more education?: No Please select the resources that you would like help with: None Currently or been in a relationship where the following occur: No concerns reported THRIVE Score: 0 AUDIT C Alcohol Use Questionnaire (AUDIT-C) 1. How often do you have a drink containing alcohol?: Never 3. How often do you have six or more drinks on one occasion?: Never Total Score: 0 Score Reviewed/Action Taken: Yes AIDA-7 AMB Questionnaire AIDA-7 Date AIDA - 7 assessed: 12/11/24 Feeling nervous, anxious, or on edge: 1 = Several days Not being able to stop or control worryin = Several days Worrying too much about different things: 1 = Several days Trouble relaxin = Several days Being so restless that it is hard to sit still: 0 = Not at all Becoming easily annoyed or irritable: 0 = Not at all Feeling afraid as if something awful might happen: 0 = Not at all Total AIDA-7 score (0-4 normal; 5-9 mild; 10-14 moderate; 15-21 severe): 4 Source: Developed by Drs. Beto Griffin, Latonia Kimball, Dann Spaulding and colleagues, with an educational venancio from [employer]. AIDA-7 Assessment Billing AIDA-7 Assessment Tool: AIDA-7 Assessment 20927 Physical exam (Primary Care) Tobacco/Smoking Status: Tobacco use Status Tobacco use date assessed 10/28/24 10/28/24 15:17 Patient Tobacco Use Status Never used Tobacco 10/28/24 15:12 e-Cigarette/Vaping Use Never Used 10/28/24 15:12 Depression Screening Interpretation: Negative Thrive Assessment: Date of Thrive Assessment Date Thrive assessed 10/28/24 11/20/24 12:55 Currently or been in a relationship where the following occur: No concerns reported Results Reviewed Results Reviewed: Laboratory Tests 12/04/24 07:02 Hemoglobin A1c % 6.2 H Vitamin B12 271 Coding Level of Care Code Est Pt Level 3 (38468) Diagnoses Acute cystitis with hematuria N30.01 B12 deficiency E53.8 Controlled type 2 diabetes mellitus without complication, with long-term current use of insulin E11.9; Z79.4 Diabetes mellitus terminal system operator insulin use: with half-way use Diabetes mellitus complication status: without complication Obesity (BMI 30-39.9) E66.9 Additional Codes AIDA-7 Assessment Billing - AIDA-7 Assessment Tool: AIDA-7 Assessment 40747 ([id number]) PHQ-9 - 71805 - PHQ-9 Billing: Yes ([id number]) Assessment & Plan Assessment & Plan (1) Acute cystitis with hematuria: Code(s): N30.01 - Acute cystitis with hematuria Category: Medical (2) B12 deficiency: Code(s): E53.8 - Deficiency of other specified B group vitamins Category: Medical (3) Diabetes type 2, controlled: Comment: diet controlled Code(s): E11.9 - Type 2 diabetes mellitus without complications Category: Medical Qualifiers: Diabetes mellitus terminal system operator insulin use: with half-way use Diabetes mellitus complication status: without complication Qualified Code(s): E11.9 - Type 2 diabetes mellitus without complications; Z79.4 - MCC (current) use of insulin (4) Obesity (BMI 30-39.9): Code(s): E66.9 - Obesity, unspecified Category: Medical Plan - The patient is a 64-year-old female presenting for 1 month follow-up appointment on labs and weight - Type 2 Diabetes Mellitus: Hemoglobin A1c at 6.2%. Obesity: Current medication includes semaglutide, dosage increased from 0.5 mg to 1 mg, patient is to monitor her weight and get back to me in 3 months - Hematuria: Patient reports presence of blood in urine discovered through blood tests. Past treatment for a urinary tract infection in October , urine culture did not grow any pathogen Referral to urology was placed, patient would like to be treated with antibiotic and repeat urine before booking the appointment with the urologist - vitamin-B level is low I have sent supplement Problem List - Type 2 Diabetes Mellitus - Hematuria - Urinary Tract Infection - Weight Concerns (related to diabetes management) - low vitamin B12 Patient Instructions - Continue taking the increased semaglutide dosage at 1 mg. - Take the prescribed antibiotic for one week. - Complete the follow-up urine test after completing the antibiotics. - Monitor weight regularly and report significant changes in 3 months - Attend physical examination appointment scheduled for April unless urgent concerns arise sooner. - pickling operator script for vitamin B12 and start taking 1 tablet daily Orders: Orders UA CC w/rflx Micro + Cult Today N30.01 - Acute cystitis with hematuria Medications: New cyanocobalamin (vitamin B-12) 1,000 mcg PO DAILY 90 days 90 tabs 1RF cyanocobalamin (vitamin B-12) 1,000 mcg PO DAILY 90 days 90 tabs 1RF nitrofurantoin monohyd/m-cryst 100 mg (Macrobid) must administer with a meal/food 100 mg PO Q12H 7 days 14 caps 0RF Changed From semaglutide for 4 weeks 0.5 mg (0.736 mL) subcut QWEEK 30 days 3.68 mL 0RF E11.69 - Type 2 diabetes mellitus with other specified complication, E66.9 - Obesity, unspecified, E78.9 - Disorder of lipoprotein metabolism, unspecified, I10 - Essential (primary) hypertension, R00.2 - Palpitations To semaglutide for 4 weeks 1 mg (0.75 mL) subcut QWEEK 90 days 9.75 mL 0RF E11.69 - Type 2 diabetes mellitus with other specified complication, E66.9 - Obesity, unspecified, E78.9 - Disorder of lipoprotein metabolism, unspecified, I10 - Essential (primary) hypertension, R00.2 - Palpitations
--- OUTSIDE RECORDS SUMMARY | 2024-12-11 16:32 | XMS_ITS ---
Author Organization [facility] Address [address] [place] [address] Care Team Providers Care Boat Worker Name Role Phone Ap [facility]ENNET[facility] Boyd Mccormack Jr [phone] REASON FOR VISIT gerd, screening colon PROBLEMS Problem Type ICD Code Onset Dates Problem Status W/U Status Risk SNOMED Code Notes Problem Gastroesophageal reflux disease (K21.9) Active confirmed Gastroesophagea l reflux disease ([id number]) Encounters Encounter Location Date Provider Diagnosis [facility] [address] [place] [phone] 05/15/2024 Boyd Muniz Jr Encounter for screening colonoscopy Z12.11 and Gastroesophageal reflux disease K21.9 ASSESSMENTS Encounter Date Diagnosis Assessment Notes Treatment Notes Treatment Clinical Notes 05/15/2024 Encounter for screen ing colonoscopy (ICD-10 - Z12.11) 05/15/2024 Gastroesophageal ref lux disease (ICD-10 - K21.9) PLAN OF TREATMENT No Information
--- OUTSIDE RECORDS SUMMARY | 2024-12-11 16:32 | XMS_ITS ---
Author Organization [facility] Address [address] [place] [phone] Care Team Providers Care Starch Crab Name Role Phone Ap [facility] Boyd Mccormack Jr [phone] REASON FOR VISIT pathology Encounters Encounter Location Date Provider Diagnosis [facility] [address] [place] [address] 05/28/2024 Boyd Muniz Jr PLAN OF TREATMENT No Information
--- OUTSIDE RECORDS SUMMARY | 2024-12-11 16:32 | XMS_ITS | Patient Health Record ---
Author Organization [facility] Address [address] [place] [address] Care Team Providers Care Forest Fire Prevention Specialist Name Role Phone Ap BENNTET, [facility] Boyd Mccormack Jr ALLERGIES No Known Allergies RESULTS Component Value Reference Range Notes Complete Blood Count no Diff Reviewed date:04/23/2024 10:06:15 AM Interpretation: Performing Lab:[address] [id number] Notes/Report: White Blood Count 8.6 4.8-10.8 X10*3/uL Red Blood Count 4.80 4.20-5.50 X10*6/uL Hemoglobin 14.2 12.0-16.0 g/dl Hematocrit 42.3 37.0-47.0 % Mean Corpuscular Volume 88.1 80.0-98.0 fL Mean Corpuscular Hemoglobin 29.6 27.0-33.0 pg Mean Corpuscular HGB Conc 33.6 31.0-35.0 g/dl Red Cell Distribution Width 13.0 11.0-16.0 % Platelet Count 434 160-400 X10*3/uL Mean Platelet Volume 10.4 9.4-12.3 fL NRBC Pct Auto 0.0 0.0-0.2 /100WBC NRBC Abs Auto 0.000 0.0-0.012 X10*3/uL Liver Panel Reviewed date:04/23/2024 10:06:03 AM Interpretation: Performing Lab:[address] [id number] Notes/Report: Bilirubin Total 0.4 0.0-1.0 mg/dL Bilirubin Direct 0.2 0.0-0.5 mg/dL Aspartate Amino Transferase 31 5-31 U/L Alanine Aminotransferase 40 0-31 U/L Total Protein 7.5 6.5-8.0 g/dL Albumin Level 4.3 3.5-5.0 g/dL Alkaline Phosphatase 122 39-117 U/L Lipase Reviewed date:04/23/2024 10:05:56 AM Interpretation: Performing Lab:[address] [id number] Notes/Report: Lipase 15 8-78 U/L Hemoglobin A1c Reviewed date:04/23/2024 10:06:09 AM Interpretation: Performing Lab:[address] [id number] Notes/Report: Hemoglobin A1c % 6.5 <6.0 % Hemoglobin A1C Reference Range Adults: 4.8 - 6.0 % Non diabetic: < 6.0 % Goal: < 7.0 % Additional Action Suggested: > 8.0 % Note: Hemoglobin A1c results are invalid for patients with abnormal amounts of HbF. Blood transfusions may impact the HbA1c concentration in the patient sample. Estimated Average Glucose 140 eAG = Estimated average glucose which is %A1C expressed as average glucose, using the formula of the [id number] Average Glucose study (ADAG), Diabetes Care, Vol.31,#8, Jun. 2007 Glucose, Whole Blood Reviewed date:05/15/2024 03:04:41 PM Interpretation: Performing Lab:[address] [id number] Notes/Report: Glucose, Whole Blood 125 60-115 mg/dL METER # : [id number] Pathology Reviewed date:05/28/2024 10:59:23 AM Interpretation: Performing Lab:[address] [id number] Notes/Report: REASON FOR REFERRAL No Information MEDICATIONS Medication SIG (Take, Route, Frequency, Duration) Notes Start Date End Date Status Clobetasol Propionate 0.05 % APPLY TOPICALLY BEDTIME APPLY 2 TO 3 TIMES PER WEEK PER DR TANNER'S INSTRUCTIONS.... External for 30 Active Omeprazole 20 MG TAKE 1 CAPSULE BY MO [facility] EVERY DAY FOR 30 DAYS for 90 days Active Contour Next Test - In Vitro for 50 Active Montelukast Sodium 10 MG Oral for 90 Active D3 Super Strength 50 MCG (1999) TAKE 1 CAPSULE BY MOUTH EVERY DAY FOR 30 DAYS Oral for 90 Active Metoprolol Succinate ER 50 MG Oral for 90 Active Rosuvastatin Calcium 10 MG Oral for 90 Active IMMUNIZATIONS Vaccine Route Administration Date Status Comme nts Influenza Unknown 04/09/2024 Refused SOCIAL HISTORY Tobacco Use: Social History Observation Description Date Details (start date - stop date) Never Smoker NA - NA Sex Assigned At : Social History Observation Description Sex Assigned At Unknown Tobacco Use/Smoking Question Answer Notes Patient is a nonsmoker Alcohol Screen Question Answer Notes Did you have a drink containing alcohol in the p ast year? No Points 0 Interpretation Negative PROBLEMS Problem Type ICD Code Onset Dates Problem Status W/U Status Risk SNOMED Code Notes Problem Gastroesophageal reflux disease, unspecified whether esophagitis present (K21.9) Active confirmed [id number] Problem Colon cancer screening (Z12.11) Active confirmed [id number] Problem Gastroesophageal reflux disease (K21.9) Active confirmed Gastroesophagea l reflux disease (336632677) VITAL SIGNS Temperature 96.9 degrees Fahrenheit 04/09/2024 Blood pressure diastolic 00 mm Hg 04/09/2024 Height 5 ft 5 in in 04/09/2024 Blood pressure systolic 000 mm Hg 04/09/2024 Weight 190 lbs 04/09/2024 BMI 31.61 kg/m2 04/09/2024 Encounters Encounter Location Date Provider Diagnosis [facility] [place] [address] [place] [phone] 05/15/2024 Boyd Muniz Jr Encounter for screening colonoscopy Z12.11 and Gastroesophageal reflux disease K21.9 [facility] [address] [place] [phone] 04/09/2024 Boyd Muniz Jr Gastroesophageal reflux disease, unspecified whether esophagitis present K21.9 and Colon cancer screening Z12.11 [facility] [address] [place] [phone] 04/20/2024 Boyd Muniz Jr [facility] [address] [place] [phone] 04/23/2024 Boyd Muniz Jr [facility] [address] [place] [address] 05/28/2024 Boyd Muniz Jr ASSESSMENTS Encounter Date Diagnosis Assessment Notes Treatment Notes Treatment Clinical Notes 05/15/2024 Encounter for screening colonoscopy (ICD-10 - Z12.11) 05/15/2024 Gastroesophageal reflux disease (ICD-10 - K21.9) 04/09/2024 Colon cancer screeni ng (ICD-10 - Z12.11) 04/09/2024 Gastroesophageal reflux disease, unspecified whether esophagitis present (ICD-10 - K21.9) Colonoscopy material was printed PLAN OF TREATMENT Pending Test Test Name Order Date HEMOGLOBIN A1C (GLYCOHEMOGLOBIN) 024 LIVER PROFILE 04/09/2024 LIPASE 04/09/2024 CBC w/o DIFF 04/09/2024 Future Test Test Name Order Date UPPER GI ENDOSCOPY 04/09/2024 COLONOSCOPY 04/09/2024 Insurance Providers Payer Name Payer Address Payer Phone Subscriber Number Group Number Insured Name Patient Relationship to Insured Coverage Start Date Coverage End Date [employer] [place] [address] [address] [place] [address] [id number] COLLEEN DEAN Self - patient is the insured MEDICAL (GENERAL) HISTORY Medical History History ICD Code Prediabetes Elevated alkaline phosphatase Elevated BMI Vitamin D deficiency Surgical History Surgery Date(Month/Year)
--- OUTSIDE RECORDS SUMMARY | 2024-12-11 16:33 | XMS_ITS ---
Author Organization [facility] Address [address] [place] [phone] Care Team Providers Care Loading Checker Name Role Phone Ap BENNET[facility] Boyd Mccormack Jr REASON FOR VISIT labs Encounters Encounter Location Date Provider Diagnosis [facility] [address] [place] [phone] 04/23/2024 Boyd Muniz Jr PLAN OF TREATMENT No Information
== END 2024-12-11 15:55 | disposition home or self-care (01) ==
PROVIDERS: PCP Internal Medicine; Visit Provider Internal Medicine
DX: E11.9 Type 2 diabetes mellitus without complications (principal); Z79.4 Long term (current) use of insulin; E66.9 Obesity, unspecified; Z68.30 Body mass index [BMI] 30.0-30.9, adult; N30.01 Acute cystitis with hematuria; E53.8 Deficiency of other specified B group vitamins

== ENCOUNTER → 2024-12-11 15:36 | Outpatient (BNVA) | payer OTHER, SELFPAY | PROVIDERS: PCP Internal Medicine; Visit Provider Internal Medicine | DX: N30.01 Acute cystitis with hematuria (principal); E53.8 Deficiency of other specified B group vitamins; E11.9 Type 2 diabetes mellitus without complications; E66.9 Obesity, unspecified; Z68.30 Body mass index [BMI] 30.0-30.9, adult; Z79.4 Long term (current) use of insulin | CPT/HCPCS: 96127 ==

== ENCOUNTER 2025-01-26 10:56 | Outpatient (AMB) | payer OTHER, SELFPAY ==
--- NOTE | 2025-01-26 11:41 | AM.OFFWIN_ITS ---
Intake Vital Signs 01/26/25 11:42 Height 5 ft 5 in Weight 177 lb BMI 29.5 BP 130/90 H Blood Pressure Location Lt brachial Position Sitting Pulse 103 H Pulse Source Pulse Oximeter Temp 98.1 F Temp Source Oral Pulse Oximetry (%) 97 Oxygen Delivery Method Room Air Intake Visit Reasons: EP-stomach virus Intake Note: Patient here for stomach virus, vomiting and diarrhea that has been present for a couple of days. Patient Tobacco Use Status: Never used Tobacco Allergies Influenza Virus Vaccines Allergy (Verified 01/26/25 11:42) Angioedema metformin Adverse Reaction (Intermediate, Verified 01/26/25 11:42) GI upset Do you need a note to return to daycare/school/sports/work: Yes HPI HPI Comments History of Present Illness Details History of Present Illness - The patient is a 65-year-old female pr esenting with nausea vomiting and diarrhea for 2 days. - Symptoms began on Saturday night, primar pietro characterized by watery diarrhea without blood or black stools - Previous evaluation at urgent care [facility] yesterday included a stomach issue, with worsening symptoms since then. She tells me the person wrote her a work note through tomorrow but she states there is no way she could go back tomorrow. She tried taking the Zofran they prescribed her but she said it tasted off will and did not seem to really help much. - The patient's began similar sy mptoms on Saturday and has not fully recovered. - The patient has not consumed antibioti cs recently and has no significant respiratory symptoms. - She denies fever and significant abdom inal pain beyond description provided. - able to tolerate minimal amounts of p. o. intake, mostly just some fluids which she vomits backup Physical Exam General: Cooperative, healthy appearing, comfortable, no acute distress and well developed Orientation: Patient oriented x3 Limitations: No limitations Head: Normal to inspection Ears: Hearing grossly normal bilaterally Nose: Normal external nose present Face and sinus: Normal facial exam Eyes: Appearance normal, both eyes and all related structures Neck: Normal visual inspection and Yes full ROM Respiratory: Normal respiratory effort and able to speak in complete sentences. GI: Soft abdomen, slight tenderness in the epigastric area, negative Michael's Skin: No rashes or lesions noted Neuro: Patient oriented x3 Extremities: Normal to inspection [facility] Medical History Palpitations Lichen sclerosus Depression Anxiety Elevated alkaline phosphatase level Dyslipidemia Vitamin D deficiency Obesity (BMI 30-39.9) Diabetes type 2, controlled Surgical History History of angiography History of sinus surgery History of colonoscopy History of appendectomy Family History Father Prostate cancer Mother Diabetes mellitus Dementia HTN (hypertension) Brother No problems noted. Brother No problems noted. Sister No problems noted. Daughter No problems noted. Sister Diabetes mellitus HTN (hypertension) Other Mental health disorder Social History Housing: House Alcohol intake: never Patient Tobacco Use Status: Never used Tobacco e-Cigarette/Vaping Use: Never Used Second Hand Smoke Exposure: No Current occupational status: employed Current occupation: [employer] Sexual orientation: Straight/Heterosexual Gender identity: Female Cognitive needs: No Hearing needs: No Vision needs: Yes Female Reproductive History Menstrual Age of Menarche: 14 Review of Systems Const All systems reviewed & are unremarkable except as noted in HPI and below Physical Exam Vital Signs: Last Vital Signs Pulse 120 H 01/26/25 11:42 BP 130/90 H 01/26/25 11:42 Pulse Ox 97 01/26/25 11:42 Oxygen Delivery Method Room Air 01/26/25 11:42 BMI result Body Mass Index 29.5 Assessment & Plan Assessment & Plan (1) Gastroenteritis: Code(s): K52.9 - Noninfective gastroenteritis and colitis, unspecified Plan: VSS, pt tired appearing, PE unremarkable. The patient is likely suffering from acute viral gastroenteritis, potentially due to norovirus. Treatment will focus on rehydration with oral electrolyte solutions and dietary adjustments to a bland diet. Ondansetron, though not initially used, should be trialed dissolved sublingually to aid nausea (prescribed by different provider yesterday). A GI panel is indicated if symptoms persist beyond 2 days, helping rule out other infections. Use the GI panel kit only if recovery does not align with expectations. The patient should refrain from work duties for the week and will receive an appropriate medical excuse note, will extend work note to cover the rest of the week. Immediate follow-up contact is advised for any emergent symptoms. Patient was informed and verbally consented to the use of an ambient scribe vfor clinic note documentation during this visit. Orders: Orders GI Panel Today K52.9 - Noninfective gastroenteritis and colitis, unspecified Coding Level of Care Code Est Pt Level 3 (10493) Diagnoses Gastroenteritis K52.9
[2025-01-26 11:42] VITALS: BP 130/90; PULSE 103; TEMP 36.7; O2SAT 97; BMI 29.5
--- OUTSIDE RECORDS SUMMARY | 2025-01-26 13:26 | XMS_ITS ---
Author Organization [facility] Address [address] [place] [address] Care Team Providers Care Treating And Pumping Supervisor Name Role Phone Ap BENNETT, [facility] Primary [facility] Provider Boyd Mccormack Jr [phone] REASON FOR VISIT pathology Encounters Encounter Location Date Provider Diagnosis [facility] [address] [place] [address] 05/28/2024 Boyd Muniz Jr Plan Of Treatment No Information Progress Notes * DEANCOLLEEN NDOB: [birth year] (64 yo F)Acc No.[id number]:05/28/2024 Patient:?JULIETA DEANAUGUSTINE Snyder :1960???Age:64 Y???Sex:Female Address:[address] [place] [address] * true * Date:? Generated for Printi kvng/Russell/eTransmitting on:?01/26/2025 01:26 PM EDT
--- OUTSIDE RECORDS SUMMARY | 2025-01-26 13:26 | XMS_ITS ---
Author Organization [facility] Address [address] [place] [address] Care Team Providers Care Metal Alloy Scientist Name Role Phone Ap BENNETT, Chato Primary Care Provider Boyd Mccormack Jr [phone] REASON FOR VISIT gerd, screening colon Problems Problem Type SNOMED Code ICD Code Onset Dates Problem Status W/U Status Risk Notes Problem Gastroesophageal reflux disease (664683444) Gastroesophageal reflux disease (K21.9) Active confirmed Encounters Encounter Location Date Provider Diagnosis [facility] Outpatient [address] [place] [phone] 05/15/2024 Boyd Muniz Jr Encounter for screening colonoscopy Z12.11 and Gastroesophageal reflux disease K21.9 Assessments Encounter Date Diagnosis (ICD Code) Assessment Notes Treatment Notes Treatment Clinical Notes Section Notes 05/15/2024 Encounter for screening colonoscopy (ICD-10 - Z12.11) 05/15/2024 Gastroesophageal reflux disease (ICD-10 - K21.9) Plan Of Treatment No Information Progress Notes * COLLEEN DEAN NDOB: [birth year] (65 yo F)Acc No.[id number]:05/15/2024 EGD and COL/MAC Patient:?JULIETA DEANAUGUSTINE Snyder Provider:?Boyd Muniz MD :1960???Age:64 Y???Sex:Female D ate:05/15/2024 Address:[address] [place], [place] [id number] Pcp:Chato De Souza MD Subjective: * Chief Complaints: * ???1. Gerd, screening colon. * Medical History:? Objective: * Vitals:? Assessment: * Assessment: 1.?Encounter for screening c olonoscopy - Z12.11 (Primary)???2.?Gastroesophageal reflux disease - K21.9??? Plan: * Treatment: * Procedure Codes:?18399 DIAGN OSTIC COLONOSCOPY, 11584 UPPER GI ENDOSCOPY, BIOPSY * * The named appointment provid er may or may not be the originator of this progress note, and it is not deemed complete until electronically signed by the appointment provider. Sign off status: Pending * Provider:?Boyd Muniz MD Date:?0 05/15/2024 Generated for Candi calderon/Russell/Jasmeetitting on:?01/26/2025 01:25 PM EDT
--- OUTSIDE RECORDS SUMMARY | 2025-01-26 13:26 | XMS_ITS ---
Author Organization [facility] Address [address] [place] [address] Care Team Providers Care Materials Management Manager Name Role Phone Ap BENNET[facility], [facility] Primary Care Provider Boyd Mccormack Jr REASON FOR VISIT labs Encounters Encounter Location Date Provider Diagnosis [facility] [address] [place] [phone] 04/23/2024 Boyd Muniz Jr Plan Of Treatment No Information Progress Notes * DEANCOLLEEN NDOB: [birth year] (64 yo F)Acc No.[id number]:04/23/2024 Patient:?JULIETA DEANAUGUSTINE Snyder :1960???Age:64 Y???Sex:Female Address:[address] [place] [address] * true * Date:? Generated for Keveni kvng/Russell/eTransmitting on:?01/26/2025 01:26 PM EDT
--- OUTSIDE RECORDS SUMMARY | 2025-01-26 13:26 | XMS_ITS | Patient Health Record ---
Author Organization [facility] Address [address] [place] [address] Care Team Providers Care Sales Agent Food Vending Service Name Role Phone Ap BENNETT, [facility] Primary Care Provider Boyd Mccormack Jr [phone] Allergies No Known Allergies Results Component Value Reference Range Notes Complete Blood Count no Diff Reviewed date:04/23/2024 10:06:15 AM Interpretation: Performing Lab:[address] [phone] Notes/Report: White Blood Count 8.6 4.8-10.8 X10*3/uL [...] Panel Reviewed date:04/23/2024 10:06:03 AM Interpretation: Performing Lab:[address] [address] Notes/Report: Bilirubin Total 0.4 0.0-1.0 mg/dL Bilirubin Direct 0.2 0.0-0.5 mg/dL Aspartate Amino Transferase 31 5-31 U/L Alanine Aminotransferase 40 0-31 U/L Total Protein 7.5 6.5-8.0 g/dL Albumin Level 4.3 3.5-5.0 g/dL Alkaline Phosphatase 122 39-117 U/L Lipase Reviewed date:04/23/2024 10:05:56 AM Interpretation: Performing Lab:[facility], [address] [place] [phone] Notes/Report: Lipase 15 8-78 U/L Hemoglobin A1c Reviewed date:04/23/2024 10:06:09 AM Interpretation: Performing Lab:[facility], [address] [place] [phone] Notes/Report: Hemoglobin A1c % 6.5 <6.0 % [...] average glucose, using the formula of the I1P-Uptntgt Average Glucose study (ADAG), Diabetes Care, Vol.31,#8, Jun. 2007 Glucose, Whole Blood Reviewed date:05/15/2024 03:04:41 PM Interpretation: Performing Lab:[facility], [address] [place] [phone] Notes/Report: Glucose, Whole Blood 125 60-115 mg/dL METER # : [id number] Pathology Reviewed date:05/28/2024 10:59:23 AM Interpretation: Performing Lab:[facility], [address] [place] [phone] Notes/Report: --- Name: Ca Owusu Age/Sex: 64/F : 1960 [facility]#: [id number] Unit#: [id number] Attend Dr: Boyd Muniz MD Re05/15/24 Status : [facility] Location: [facility] Disch: --- SPEC : [id number] RECD : 05/15/24-1132 STATUS: LARRY BARRAZA NUM: [id number] MAGNUS: 05/15/24-[address] [facility] [address]: Boyd Muniz MD ENTERED: 05/15/24-11 40 SP TYPE: Surgical OTHR DR: Chato De Souza MD ORDERED: HE Stain/3, Gross Micro L4/2, IHC, Special st. 2/2, H. pylori, AB/PAS/2 Diagnosis A. Gastric antrum, biopsy: Gastric antral mucosa with minimal chronic inactive gastritis; negative for H pylori, intestinal metaplasia and dysplasia. B. Esophagogastric junction, biopsy: Squamous mucosa with hyperplasia and focal intraepithelial neutrophils and eosinophils (up to 2 per high-power field) and columnar mucosa with mild chronic active inflammation, consistent with reflux esophagitis; negative for intesti nal metaplasia and dysplasia. Clinical History Pre-Op Dx: Encounter for screening for malignant neoplasm of colon Post-Op Dx: GERD, normal Microscopic Description Microscopic sections reviewed. Immunostain for H. pylori on A is negative. AB/PAS on A and B are negative for intestinal metaplasia. Controls stain appropriately. Material Received A. Antral bx's B. EG junction Gross Description Received in two parts. Part A: Received in formalin labeled ?antral bx's? are 2 agrawal-pink irregular tissue fragments measuring 0.25 and 0.4 cm, submitted in toto in a cassette labeled A. Part B: Received in formalin labeled ?EG junction? are 4 lou-white irregular and rectangular tissue fragments ranging from 0.25-0.35 cm, submitted in toto in a cassette labeled B. CEDS Special studies orde red and performed: Immunostain for H. pylori on A1; AB/PAS stains on A1 and B1. CONTINUED ON NEXT PAGE --- Name: Ca Owusu Age/Sex: 64/F : 1960 Unit#: [id number] Attend Dr: Boyd Muniz MD Re05/15/24 Status : [facility] Location: [facility] Disch: --- SPEC : [id number] RECD : 05/15/242 STATUS: LARRY DAI NUM: [id number] MAGNUS: 05/15/24-[address] [facility] [address]: Boyd Muniz MD ENTERED: 05/15/24-11 40 SP TYPE: Surgical OTHR DR: Chato De Souza MD ORDERED: HE Stain/3, Gross Micro L4/2, IHC, Special st. 2/2, H. pylori, AB/PAS/2 Copies To: Boyd Muniz MD [facility] [address] [place] [address] [address] [place] [address] Chato De Souza MD [facility] [address] [place], [place] [phone] --- Signed (signature on file) Aida Obey 05/18/24 1747 --- END OF REPORT Reason For Referral No Information Medications Medication SIG (Take, Route, Frequency, Duration) Notes Start Date End Date Status Clobetasol Propionate 0.05 % APPLY TOPICALLY BEDTIME APPLY 2 TO 3 TIMES PER WEEK PER DR TANNER'S INSTRUCTIONS.... External for 30 Active Omeprazole 20 MG TAKE 1 CAPSULE BY MO UT EVERY DAY FOR 30 DAYS for 90 days Active Contour Next Test - In Vitro for 50 Active Montelukast Sodium 10 MG Oral for 90 Active D3 Super Strength 50 MCG (1999 UT) TAKE 1 CAPSULE BY MOUTH EVERY DAY FOR 30 DAYS Oral for 90 Active Metoprolol Succinate ER 50 MG Oral for 90 Active Rosuvastatin Calcium 10 MG Oral for 90 Active Immunizations Vaccine Route Administration Date Status Comme nts Influenza Unknown 04/09/2024 Refused Social History Tobacco Use: Social History Observation Description Date Details (start date - stop date) Never Smoker NA - NA Tobacco Use/Smoking Question Answer Notes Patient is a nonsmoker Alcohol Screen Question Answer Notes Did you have a drink containing alcohol in the p ast year? No Points 0 Interpretation Negative Problems Problem Type SNOMED Code ICD Code Onset Dates Problem Status W/U Status Risk Notes Problem [id number] Colon cancer screening (Z12.11) Active confirmed Problem Gastroesophageal reflux disease (077919928) Gastroesophageal reflux disease (K21.9) Active confirmed Problem 547859984 Gastroesophageal reflux disease, unspecified whether esophagitis present (K21.9) Active confirmed Vital Signs Temperature 96.9 degrees Fahrenheit 04/09/2024 Blood pressure diastolic 00 mm Hg 04/09/2024 Height 5 ft 5 in in 04/09/2024 Blood pressure systolic 000 mm Hg 04/09/2024 Weight 190 lbs 04/09/2024 BMI 31.61 kg/m2 04/09/2024 Encounters Encounter Location Date Provider Diagnosis [facility] Outpatient [address] [place] [phone] 05/15/2024 Boyd Muniz Jr Encounter for screening colonoscopy Z12.11 and Gastroesophageal reflux disease K21.9 [facility] [address] [place] [address] 04/09/2024 Boyd Muniz Jr Gastroesophageal reflux disease, unspecified whether esophagitis present K21.9 and Colon cancer screening Z12.11 [facility] [address] [place] [address] [address] 04/20/2024 Boyd Muniz Jr [facility] [address] [place] [phone] 04/23/2024 Boyd Muniz Jr [facility] [address] [place] [address] [address] 05/28/2024 Boyd Muniz Jr Assessments Encounter Date Diagnosis (ICD Code) Assessment Notes Treatment Notes Treatment Clinical Notes Section Notes 05/15/2024 Encounter for screening colonoscopy (ICD-10 - Z12.11) 05/15/2024 Gastroesophageal reflux disease (ICD-10 - K21.9) 04/09/2024 Colon cancer screening (ICD-10 - Z12.11) We discussed gastroesophageal reflux disease today. We discussed diet, lifestyle modifications, and weight management. She will continue omeprazole. Upper endoscopy will be arranged. She is also due for colon cancer screening and colonoscopy will be arranged at the same time. She is aware risks and benefits of both procedures and agrees to proceed. Lab testing will be obtained. 04/09/2024 Gastroesophageal reflux disease, unspecified whether esophagitis present (ICD-10 - K21.9) Colonoscopy material was printed We discussed gastroesophageal reflux disease today. We discussed diet, lifestyle modifications, and weight management. She will continue omeprazole. Upper endoscopy will be arranged. She is also due for colon cancer screening and colonoscopy will be arranged at the same time. She is aware risks and benefits of both procedures and agrees to proceed. Lab testing will be obtained. Plan Of Treatment Pending Test Test Name Order Date HEMOGLOBIN A1C (GLYCOHEMOGLOBIN) 024 LIVER PROFILE 04/09/2024 LIPASE 04/09/2024 CBC w/o DIFF 04/09/2024 Future Test Test Name Order Date UPPER GI ENDOSCOPY 04/09/2024 COLONOSCOPY 04/09/2024 Insurance Providers Payer Name Payer Address Payer Phone Subscriber Number Group Number Insured Name Patient Relationship to Insured Coverage Start Date Coverage End Date [employer] [place] [address] [address] [place] [address] [id number] CA OWUSU Self - patient is the insured Medical (General) History Medical History History ICD Code Prediabetes Elevated alkaline phosphatase Elevated BMI Vitamin D deficiency Surgical History Surgery Date(Month/Year)
== END 2025-01-26 12:05 | disposition home or self-care (01) ==
PROVIDERS: PCP Internal Medicine; Visit Provider Physician Assistant
DX: K52.9 Noninfective gastroenteritis and colitis, unspecified (principal)

== ENCOUNTER → 2025-01-26 10:56 | Outpatient (BNVA) | payer OTHER, SELFPAY | PROVIDERS: PCP Internal Medicine; Visit Provider Physician Assistant ==

== ENCOUNTER 2025-02-05 10:28 | Outpatient (REF) | payer OTHER, SELFPAY ==
--- NOTE | ~2025-02-05 | MM_ITS ---
EXAMINATION: MM SCREENING DIGITAL BREAST TOMOSYNTHESIS, BILATERAL CLINICAL INFORMATION: Screening. Asymptomatic. COMPARISON: Mammography: Comparison is made with available priors TECHNIQUE: Digital breast mammography with tomosynthesis is performed in both the craniocaudal and mediolateral oblique views along with computer-aided detection (CAD). FINDINGS: The breasts are heterogeneously dense, which may obscure small masses (ACR BI-RADS breast composition Category c). There are no significant masses, abnormal calcifications, or other abnormalities. MM/MM tomosynthesis screening BI IMPRESSION: No mammographic evidence of malignancy. ASSESSMENT: BI-RADS BI-RADS 1 - Negative RECOMMENDATION: Routine annual mammography screening. 1 year F/U This examination should not preclude the clinical evaluation of a suspicious palpable abnormality. This patient's information was entered into a reminder system with a target due date for their next mammogram. Electronically signed by: Jil Obregon DO 02/05/2025 12:09 PM EDT
--- OUTSIDE RECORDS SUMMARY | 2025-02-05 12:31 | XMS_ITS | Patient Health Record ---
Author Organization [facility] Address [address] [place] [address] Care Team Providers Care Power Electronics Engineer Name Role Phone Ap BENNETT, [facility] Primary Care Provider Boyd Mccormack Jr [phone] Allergies No Known Allergies Results Component Value Reference Range Notes Complete Blood Count no Diff Reviewed date:04/23/2024 10:06:15 AM Interpretation: Performing Lab:[address] [phone] Notes/Report: White Blood Count 8.6 4.8-10.8 X10*3/uL [...] Panel Reviewed date:04/23/2024 10:06:03 AM Interpretation: Performing Lab:[address] [address] Notes/Report: Bilirubin Total 0.4 0.0-1.0 mg/dL Bilirubin Direct 0.2 0.0-0.5 mg/dL Aspartate Amino Transferase 31 5-31 U/L Alanine Aminotransferase 40 0-31 U/L Total Protein 7.5 6.5-8.0 g/dL Albumin Level 4.3 3.5-5.0 g/dL Alkaline Phosphatase 122 39-117 U/L Lipase Reviewed date:04/23/2024 10:05:56 AM Interpretation: Performing Lab:[facility], [address] [place] [phone] Notes/Report: Lipase 15 8-78 U/L Hemoglobin A1c Reviewed date:04/23/2024 10:06:09 AM Interpretation: Performing Lab:[facility], [address] [place] [phone] Notes/Report: Hemoglobin A1c % 6.5 <6.0 % [...] average glucose, using the formula of the H3E-Cxjnvbg Average Glucose study (ADAG), Diabetes Care, Vol.31,#8, Jun. 2007 Glucose, Whole Blood Reviewed date:05/15/2024 03:04:41 PM Interpretation: Performing Lab:[facility], [address] [place] [phone] Notes/Report: Glucose, Whole Blood 125 60-115 mg/dL METER # : [id number] Pathology Reviewed date:05/28/2024 10:59:23 AM Interpretation: Performing Lab:[facility], [address] [place] [phone] Notes/Report: --- Name: Ca Owusu Age/Sex: 64/F : 1960 [facility]#: [id number] Unit#: [id number] Attend Dr: Boyd Muniz MD Re05/15/24 Status : [facility] Location: [facility] Disch: --- SPEC : [id number] RECD : 05/15/24-1132 STATUS: LARRY BARRAZA NUM: [id number] MAGNUS: 05/15/24-1024 [facility] DR: Boyd Muniz MD ENTERED: 05/15/24-11 40 [...] Ca Owusu Age/Sex: 64/F : 1960 Unit#: [id number] Attend Dr: Boyd Muniz MD Re05/15/24 Status : [facility] Location: [facility] Disch: --- SPEC : [id number] RECD : 05/15/242 STATUS: LARRY DAI NUM: [id number] MAGNUS: 05/15/24-1024 [facility] DR: Boyd Muniz MD ENTERED: 05/15/24-11 40 SP TYPE: Surgical OTHR DR: Chato De Souza MD ORDERED: HE Stain/3, Gross Micro L4/2, IHC, Special st. 2/2, H. pylori, AB/PAS/2 Copies To: Boyd Muniz MD [facility] [address] [place] [address] [place] [address] Chato De Souza MD [facility] [address] [place], [place] [phone] --- Signed (signature on file) Aida Obey [...] Problem Status W/U Status Risk Notes Problem [id number] Colon cancer screening (Z12.11) Active confirmed Problem Gastroesophageal reflux disease (898250334) Gastroesophageal reflux disease (K21.9) Active confirmed Problem 972236974 Gastroesophageal reflux disease, unspecified whether esophagitis present (K21.9) Active confirmed Vital Signs Temperature 96.9 degrees Fahrenheit 04/09/2024 Blood pressure diastolic 00 mm Hg 04/09/2024 Height 5 ft 5 in in 04/09/2024 Blood pressure systolic 000 mm Hg 04/09/2024 Weight 190 lbs 04/09/2024 BMI 31.61 kg/m2 04/09/2024 Encounters Encounter Location Date Provider Diagnosis [facility] Outpatient [address] [place] [phone] 05/15/2024 Boyd Muniz Jr Encounter for screening colonoscopy Z12.11 and Gastroesophageal reflux disease K21.9 [facility] [address] [place] [address] 04/09/2024 Boyd Muniz Jr Gastroesophageal reflux disease, unspecified whether esophagitis present K21.9 and Colon cancer screening Z12.11 [facility] [address] [place] [address] [address] 04/20/2024 Boyd Muniz Jr [facility] [address] [place] [phone] 04/23/2024 Boyd Muniz Jr [facility] [address] [place] [address] [address] 05/28/2024 Boyd Muniz Jr Assessments Encounter Date [...] [employer] [place] [address] [address] [place] [address] [id number] [place] OWUSU Self - patient is the insured Medical (General) History Medical History History ICD Code Prediabetes Elevated alkaline phosphatase Elevated BMI Vitamin D deficiency Surgical History Surgery Date(Month/Year)
--- OUTSIDE RECORDS SUMMARY | 2025-02-05 12:31 | XMS_ITS ---
Author Organization [facility] Address [address] [place] [phone] Care Team Providers Care Transition Specialist Name Role Phone Ap BENNET[facility] Provider Boyd Mccormack Jr [phone] REASON FOR VISIT labs Encounters Encounter Location Date Provider Diagnosis [facility] [address] [place] [phone] 04/23/2024 Boyd Muniz Jr Plan Of Treatment No Information Progress Notes * DEANCOLLEEN NDOB: [birth year] (64 yo F)Acc No.[id number]:04/23/2024 Patient:?JULIETA DEANAUGUSTINE Snyder :1960???Age:64 Y???Sex:Female Address:[address] [place] [address] * true * Date:? Generated for Printi kvng/Russell/eTransmitting on:?02/05/2025 12:31 PM EDT
--- OUTSIDE RECORDS SUMMARY | 2025-02-05 12:31 | XMS_ITS ---
Author Organization [facility] Address [address] [place] [phone] Care Team Providers Care Protective Signal Repairer Helper Name Role Phone Ap BENNETT, [facility] Primary Care Provider Boyd Mccormack Jr REASON FOR VISIT pathology Encounters Encounter Location Date Provider Diagnosis [facility] [address] [place] [phone] 05/28/2024 Boyd Muniz Jr Plan Of Treatment No Information Progress Notes * DEANCOLLEEN NDOB: [birth year] (64 yo F)Acc No.[id number]:05/28/2024 Patient:?JULIETA DEANAUGUSTINE Snyder :1960???Age:64 Y???Sex:Female Address:[address] [place] [address] * true * Date:? Generated for Printi ng/Russell/eTransmitting on:?02/05/2025 12:30 PM EDT
--- OUTSIDE RECORDS SUMMARY | 2025-02-05 12:31 | XMS_ITS ---
Author Organization [facility] Address [address] [place] [address] Care Team Providers Care Director Retirement Name Role Phone Ap BENNETT, Chato Primary Care Provider Boyd Mccormack Jr REASON FOR VISIT gerd, screening colon Problems Problem Type SNOMED Code ICD Code Onset Dates Problem Status W/U Status Risk Notes Problem Gastroesophageal reflux disease (497820504) Gastroesophageal reflux disease (K21.9) Active confirmed Encounters Encounter Location Date Provider Diagnosis [facility] Outpatient [address] [place] [phone] 05/15/2024 Boyd Muniz Jr Encounter for screening colonoscopy Z12.11 and Gastroesophageal reflux disease K21.9 Assessments Encounter Date Diagnosis (ICD Code) Assessment Notes Treatment Notes Treatment Clinical Notes Section Notes 05/15/2024 Encounter for screening colonoscopy (ICD-10 - Z12.11) 05/15/2024 Gastroesophageal reflux disease (ICD-10 - K21.9) Plan Of Treatment No Information Progress Notes * COLLEEN DEAN NDOB: [birth year] (65 yo F)Acc No.[id number]:05/15/2024 EGD and COL/MAC Patient:?JULIETA DEANAUGUSTINE Snyder Provider:?Boyd Muniz MD :1960???Age:64 Y???Sex:Female D ate:05/15/2024 Address:[address] [place], [place] [phone] Pcp:Chato De Souza MD Subjective: * Chief Complaints: * ???1. Gerd, screening colon. * Medical History:? Objective: * Vitals:? Assessment: * Assessment: 1.?Encounter for screening c olonoscopy - Z12.11 (Primary)???2.?Gastroesophageal reflux disease - K21.9??? Plan: * Treatment: * Procedure Codes:?26746 DIAGN OSTIC COLONOSCOPY, 20645 UPPER GI ENDOSCOPY, BIOPSY * * The named appointment provid er may or may not be the originator of this progress note, and it is not deemed complete until electronically signed by the appointment provider. Sign off status: Pending * Provider:?Boyd Muniz MD Date:?0 05/15/2024 Generated for Candi calderon/Russell/Jasmeetitting on:?02/05/2025 12:30 PM EDT
== END 2025-02-05 10:29 | disposition home or self-care (01) ==
LOC: HO.MAMMO 10:28
PROVIDERS: PCP Internal Medicine; Visit Provider Internal Medicine
DX: Z12.31 Encounter for screening mammogram for malignant neoplasm of breast (principal)
CPT/HCPCS: 77063; 77067

== ENCOUNTER → 2025-02-05 10:45 | Outpatient (BNV) | payer OTHER, SELFPAY | PROVIDERS: PCP Internal Medicine; Visit Provider Internal Medicine | DX: Z12.31 Encounter for screening mammogram for malignant neoplasm of breast (principal) | CPT/HCPCS: 77063; 77067 ==

== ENCOUNTER 2025-02-15 15:21 | Outpatient (REF) | payer OTHER, SELFPAY ==
[2025-02-15 15:58] LABS: Appearance Urine Clear; Color Urine Yellow; Glucose Urine UA Negative (Negative); Leukocyte Esterase Urine Negative (Negative); Nitrite Urine Negative (Negative); PH 6.5 (5.0-9.0); Specific Gravity - Urine <= 1.005 (1.005-1.025); Urine Blood Negative (Negative); Urine Ketones Negative (Negative); Urine Protein Negative (Neg-Trace)
--- OUTSIDE RECORDS SUMMARY | 2025-02-15 17:20 | XMS_ITS ---
Author Organization [facility] Address [address] [place] [phone] Care Team Providers Care Credit Negotiator Name Role Phone Ap BENNETT, Asma Primary Care Provider Boyd Mccormack Jr REASON FOR VISIT pathology Encounters Encounter Location Date Provider Diagnosis [facility] [address] [place] [phone] 05/28/2024 Boyd Muniz Jr Plan Of Treatment No Information Progress Notes * DEAN COLLEEN NDOB: [birth year] (64 yo F)Acc No.[id number]:05/28/2024 Patient:?JULIETA DEANAUGUSTINE Snyder :1960???Age:64 Y???Sex:Female Address:[address] [place] [address] * true * Date:? Generated for Printi kvng/Russell/eTransmitting on:?02/15/2025 05:20 PM EDT
--- OUTSIDE RECORDS SUMMARY | 2025-02-15 17:20 | XMS_ITS ---
Author Organization [facility] Address [address] [place] [phone] Care Team Providers Care Outdoor Pursuits Instructor Name Role Phone Ap BENNETT, Asma Primary Care Provider Boyd Mccormack Jr REASON FOR VISIT labs Encounters Encounter Location Date Provider Diagnosis [facility] [address] [place] [phone] 04/23/2024 Boyd Muniz Jr Plan Of Treatment No Information Progress Notes * DEANCOLLEEN NDOB: [birth year] (64 yo F)Acc No.[id number]:04/23/2024 Patient:?JULIETA DEANAUGUSTINE Snyder :1960???Age:64 Y???Sex:Female Address:[address] [place] [address] * true * Date:? Generated for Printi kvng/Russell/eTransmitting on:?02/15/2025 05:20 PM EDT
--- OUTSIDE RECORDS SUMMARY | 2025-02-15 17:20 | XMS_ITS ---
Author Organization [facility] Address [address] [place] [phone] Care Team Providers Care Area Supervisor Name Role Phone Ap BENNETT, Chato Primary Care Provider Boyd Mccormack Jr REASON FOR VISIT gerd, screening colon Problems Problem Type SNOMED Code ICD Code Onset Dates Problem Status W/U Status Risk Notes Problem Gastroesophageal reflux disease (468010123) Gastroesophageal reflux disease (K21.9) Active confirmed Encounters Encounter Location Date Provider Diagnosis [facility] [place] [address] [place] [place] [phone] 05/15/2024 Boyd Muniz Jr Encounter for screening colonoscopy Z12.11 and Gastroesophageal reflux disease K21.9 Assessments Encounter Date Diagnosis (ICD Code) Assessment Notes Treatment Notes Treatment Clinical Notes Section Notes 05/15/2024 Encounter for screening colonoscopy (ICD-10 - Z12.11) 05/15/2024 Gastroesophageal reflux disease (ICD-10 - K21.9) Plan Of Treatment No Information Progress Notes * COLLEEN DEAN NDOB: [birth year] (65 yo F)Acc No.[id number]:05/15/2024 EGD and COL/MAC Patient:?JULIETA DEANAUGUSTINE Snyder Provider:?Boyd Muniz MD :1960???Age:64 Y???Sex:Female D ate:05/15/2024 Address:[address] [place], [place] [phone] Pcp:Chato De Souza MD Subjective: * Chief Complaints: * ???1. Gerd, screening colon. * Medical History:? Objective: * Vitals:? Assessment: * Assessment: 1.?Encounter for screening c olonoscopy - Z12.11 (Primary)???2.?Gastroesophageal reflux disease - K21.9??? Plan: * Treatment: * Procedure Codes:?80198 DIAGN OSTIC COLONOSCOPY, 27564 UPPER GI ENDOSCOPY, BIOPSY * * The named appointment provid er may or may not be the originator of this progress note, and it is not deemed complete until electronically signed by the appointment provider. Sign off status: Pending * Provider:?Boyd Muniz MD Date:?0 05/15/2024 Generated for Candi calderon/Russell/Jasmeetitting on:?02/15/2025 05:19 PM EDT
--- OUTSIDE RECORDS SUMMARY | 2025-02-15 17:20 | XMS_ITS | Patient Health Record ---
Author Organization [facility] Address [address] [place] [address] Care Team Providers Care Forest Pathology Professor Name Role Phone Ap BENNETT, [facility] Primary [facility] Provider Boyd Mccormack Jr Allergies No Known Allergies Results Component Value Reference Range Notes Complete Blood Count no Diff Reviewed date:04/23/2024 10:06:15 AM Interpretation: Performing Lab:[address] [address] Notes/Report: White Blood Count 8.6 4.8-10.8 X10*3/uL [...] Panel Reviewed date:04/23/2024 10:06:03 AM Interpretation: Performing Lab:[address] [address] Notes/Report: Bilirubin Total 0.4 0.0-1.0 mg/dL Bilirubin Direct 0.2 0.0-0.5 mg/dL Aspartate Amino Transferase 31 5-31 U/L Alanine Aminotransferase 40 0-31 U/L Total Protein 7.5 6.5-8.0 g/dL Albumin Level 4.3 3.5-5.0 g/dL Alkaline Phosphatase 122 39-117 U/L Lipase Reviewed date:04/23/2024 10:05:56 AM Interpretation: Performing Lab:[facility], [address] [place] [phone] Notes/Report: Lipase 15 8-78 U/L Hemoglobin A1c Reviewed date:04/23/2024 10:06:09 AM Interpretation: Performing Lab:[facility], [address] [place] [phone] Notes/Report: Hemoglobin A1c % 6.5 <6.0 % [...] average glucose, using the formula of the D3F-Eluqzub Average Glucose study (ADAG), Diabetes Care, Vol.31,#8, Jun. 2007 Glucose, Whole Blood Reviewed date:05/15/2024 03:04:41 PM Interpretation: Performing Lab:[facility], [address] [place] [phone] Notes/Report: Glucose, Whole Blood 125 60-115 mg/dL METER # : [id number] Pathology Reviewed date:05/28/2024 10:59:23 AM Interpretation: Performing Lab:[facility], [address] [place] [phone] Notes/Report: --- Name: Ca Owusu Age/Sex: 64/F : 1960 [facility]#: [id number] Unit#: [id number] Attend Dr: Boyd Muniz MD Re05/15/24 Status : [facility] Location: [facility] Disch: --- SPEC : [id number] RECD : 05/15/24-1132 STATUS: LARRY BARRAZA NUM: [id number] MAGNUS: 05/15/24-[address] [facility] [address]: Boyd Muniz MD ENTERED: 05/15/24-11 [...] Ca Owusu Age/Sex: 64/F : 1960 Unit#: [id number] Attend Dr: Boyd Muniz MD Re05/15/24 Status : [facility] Location: [facility] Disch: --- SPEC : [id number] RECD : 05/15/242 STATUS: LARRY DAI NUM: [id number] MAGNUS: 05/15/24-[address] [facility] [address]: Boyd Muniz MD ENTERED: 05/15/24-11 40 SP TYPE: Surgical OTHR DR: Chato De Souza MD ORDERED: HE Stain/3, Gross Micro L4/2, IHC, Special st. 2/2, H. pylori, AB/PAS/2 Copies To: Boyd Muniz MD [facility] [address] [place] [address] [place] [address] Chato De Souza MD [facility] [address] [place], [place] [phone] --- Signed (signature on file) Aida Obey [...] Problem Status W/U Status Risk Notes Problem [id number] Colon cancer screening (Z12.11) Active confirmed Problem Gastroesophageal reflux disease (703448862) Gastroesophageal reflux disease (K21.9) Active confirmed Problem 011301056 Gastroesophageal reflux disease, unspecified whether esophagitis present (K21.9) Active confirmed Vital Signs Temperature 96.9 degrees Fahrenheit 04/09/2024 Blood pressure diastolic 00 mm Hg 04/09/2024 Height 5 ft 5 in in 04/09/2024 Blood pressure systolic 000 mm Hg 04/09/2024 Weight 190 lbs 04/09/2024 BMI 31.61 kg/m2 04/09/2024 Encounters Encounter Location Date Provider Diagnosis [facility] Outpatient [address] [place] [phone] 05/15/2024 Boyd Muniz Jr Encounter for screening colonoscopy Z12.11 and Gastroesophageal reflux disease K21.9 [facility] [address] [place] [phone] 04/09/2024 Boyd Muniz Jr Gastroesophageal reflux disease, unspecified whether esophagitis present K21.9 and Colon cancer screening Z12.11 [facility] [address] [place] [address] [phone] 04/20/2024 Boyd Muniz Jr [facility] [address] [place] [phone] 04/23/2024 Boyd Muniz Jr [facility] [address] [place] [address] [phone] 05/28/2024 Boyd Muniz Jr Assessments Encounter Date [...] [employer] [place] [address] [address] [place] [address] [id number] [place] OWUSU Self - patient is the insured Medical (General) History Medical History History ICD Code Prediabetes Elevated alkaline phosphatase Elevated BMI Vitamin D deficiency Surgical History Surgery Date(Month/Year)
== END 2025-02-15 15:22 | disposition home or self-care (01) ==
LOC: HO.LAB 15:21
PROVIDERS: Nurse Practitioner Family; PCP Internal Medicine; Visit Provider Internal Medicine
DX: R30.0 Dysuria (principal)
CPT/HCPCS: 81003

== ENCOUNTER 2025-02-22 15:33 | Outpatient (AMB) | payer OTHER, SELFPAY ==
[2025-02-22 15:46] VITALS: BP 100/60; BMI 29.6
--- NOTE | 2025-02-22 15:46 | A.OFFVIS_ITS ---
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 No complaints. Last Pap/HPV was negative in 01/08 Last Mammogram was BI-RADS 1 in 02/09 Last colonoscopy was in 05/11, the recommendation was to repeat in 10 years [facility] Medical History Palpitations Lichen sclerosus Depression Anxiety Elevated alkaline phosphatase level Dyslipidemia Vitamin D deficiency Obesity (BMI 30-39.9) Diabetes type 2, controlled Surgical History History of angiography History of sinus surgery History of colonoscopy History of appendectomy Family History Father Prostate cancer Mother Diabetes mellitus Dementia HTN (hypertension) Brother No problems noted. Brother No problems noted. Sister No problems noted. Daughter No problems noted. Sister Diabetes mellitus HTN (hypertension) Other Mental health disorder Social History Housing: House Alcohol intake: never Patient Tobacco Use Status: Never used Tobacco e-Cigarette/Vaping Use: Never Used Second Hand Smoke Exposure: No Current occupational status: employed Current occupation: [employer] [place] Sexual orientation: Straight/Heterosexual Gender identity: Female Cognitive needs: No Hearing needs: No Vision needs: Yes Female Reproductive History Menstrual Age of Menarche: 14 Total pregnancies: 1 Full term: 1 Number of Living Children: 1 Date of last pap smear: 01/09/21 (neg pap and hpv) Date of Mammogram: 02/05/25 Review of Systems Const All systems reviewed & are unremarkable except as noted in HPI and below Card Reports as per HPI Resp Reports as per HPI GI Reports as per HPI and Reports no additional complaints Reports as per HPI Physical Exam Vital Signs: BMI result Body Mass Index 29.6 Const General: cooperative, healthy appearing and comfortable Chest Chest palpation & inspection: normal inspection of the chest and normal palpation of entire chest wall Breast/axilla inspection: normal inspection of the breasts and normal inspection of the axillae Breast/axilla palpation: normal palpation of the breasts, normal palpation of t he axillae and no axillary lymphadenopathy Resp Effort & Inspection: normal respiratory effort Auscultation: clear to auscultation bilaterally Percussion: percussion normal Cardio Palpation: normal PMI Rate: regular rate Rhythm: regular rhythm Heart sounds: no murmurs and no rubs Peripheral pulses: Peripheral pulses 2+ throughout GI Inspection: Yes normal to inspection Palpation (GI): Soft to palpation, nontender, no guarding, not rigid and No hepatosplenomegaly present Percussion: Yes normal to percussion Auscultation: normal bowel sounds Rectal Exam - Female: deferred General: Yes bladder normal to palpation External Female Exam: No lesion Speculum Exam - Vagina: normal appearance of the vagina, normal palpation, normal vaginal discharge and not erythematous Speculum Exam - Cervix: normal appearance of the cervix and normal palpation Bimanual exam- vagina & uterus: normal bimanual exam, normal palpation, uterine size normal, bladder normal to palpation, consistency normal and normal palpation Bimanual Exam- Adnexa, other: normal adnexae, no masses and no tenderness Assessment & Plan Assessment & Plan (1) Well woman exam: Code(s): Z01.419 - Encounter for gynecological examination (general) (routine) without abnormal findings Category: Medical Plan: Co testing not indicated this year. Counseled the patient about the recommended dietary allowance of 1200 mg of Calcium & 600 IU of vitamin D. Instructions given the patient to schedule her next screening Mammogram in 02/10. The patient was instructed to perform monthly self-breast exams and schedule annual exam in a year. All questions answered and the patient verbalized understanding. (2) Lichen sclerosus: Code(s): L90.0 - Lichen sclerosus et atrophicus Category: Medical Plan: Explained to the patient that Lichen sclerosus refers to a benign, chronic, progressive dermatologic condition characterized by marked inflammation, epithelial thinning accompanied by pruritus and pain. In addition, discussed with the patient that there is a small increased risk of squamous cell cancer of the vulva in patients with lichen sclerosus. Adequate treatment of the disease seems to be associated with a reduced risk of development of neoplasia. Instructed the patient to schedule an appointment in a year to examine the affected area, with possible biopsy of suspicious lesions, in addition explained to the patient that she should look at the skin of the affected area and touch with fingertips monthly to search for thickened lumps or sores that do not heal & to report such findings for inspection & possible biopsy to rule out vulvar cancer Will refill Clobetasol propionate 0.05% ointment to be applied for maintenance t herapy two to three times per week . Medications: Refilled clobetasol 0.05% apply 2 to 3 times per week as per Dr Olivo's instructions.... 1 appl topical BEDTIME 60 grams 3RF Coding Level of Care Code Est Pt Prev Care 40-64y(49933) Diagnoses Well woman exam Z01.419 Lichen sclerosus L90.0
--- OUTSIDE RECORDS SUMMARY | 2025-02-22 18:19 | XMS_ITS | Patient Health Record ---
Author Organization [facility] Address [address] [place] [address] Care Team Providers Care Software Architect Name Role Phone Ap BENNETT, [facility] Primary [facility] Provider Boyd Mccormack Jr Allergies No Known Allergies Results Component Value Reference Range Notes Complete Blood Count no Diff Reviewed date:04/23/2024 10:06:15 AM Interpretation: Performing Lab:[address] [address] Notes/Report: White Blood Count 8.6 4.8-10.8 X10*3/uL [...] Panel Reviewed date:04/23/2024 10:06:03 AM Interpretation: Performing Lab:[address] [address] Notes/Report: Bilirubin Total 0.4 0.0-1.0 mg/dL Bilirubin Direct 0.2 0.0-0.5 mg/dL Aspartate Amino Transferase 31 5-31 U/L Alanine Aminotransferase 40 0-31 U/L Total Protein 7.5 6.5-8.0 g/dL Albumin Level 4.3 3.5-5.0 g/dL Alkaline Phosphatase 122 39-117 U/L Lipase Reviewed date:04/23/2024 10:05:56 AM Interpretation: Performing Lab:[facility], [address] [place] [address] Notes/Report: Lipase 15 8-78 U/L Hemoglobin A1c Reviewed date:04/23/2024 10:06:09 AM Interpretation: Performing Lab:[facility], [address] [place] [place] [phone] Notes/Report: Hemoglobin A1c % 6.5 <6.0 % [...] average glucose, using the formula of the I7C-Xmdjpzj Average Glucose study (ADAG), Diabetes Care, Vol.31,#8, Jun. 2007 Glucose, Whole Blood Reviewed date:05/15/2024 03:04:41 PM Interpretation: Performing Lab:[facility], [address] [place] [place] [address] Notes/Report: Glucose, Whole Blood 125 60-115 mg/dL METER # : [id number] Pathology Reviewed date:05/28/2024 10:59:23 AM Interpretation: Performing Lab:[facility], [address] [place] [place] [phone] Notes/Report: --- Name: Ca Owusu Age/Sex: 64/F : [address] [facility]#: [id number] Unit#: [id number] Attend Dr: Boyd Muniz MD Re05/15/24 Status : [facility] Location: [facility] Disch: --- SPEC : [id number] RECD : 05/15/24-1132 STATUS: LARRY BARRAZA NUM: [id number] MAGNUS: 05/15/24-1024 [facility] DR: Boyd Muniz MD ENTERED: [...] Ca Owusu Age/Sex: 64/F : 1960 Unit#: [id number] Attend Dr: Boyd Muniz MD Re05/15/24 Status : [facility] Location: [facility] Disch: --- SPEC : [id number] RECD : 05/15/242 STATUS: LARRY DAI NUM: [id number] MAGNUS: 05/15/24-1024 [facility] DR: Boyd Muniz MD ENTERED: 05/15/24-11 40 SP TYPE: Surgical OTHR DR: Chato De Souza MD ORDERED: HE Stain/3, Gross Micro L4/2, IHC, Special st. 2/2, H. pylori, AB/PAS/2 Copies To: Boyd Muniz MD [facility] [address] [place] [address] [place] [address] Chato De Souza MD [facility] [address] [place], [place] [phone] --- Signed (signature on file) Aida Oldhams 05/18/24 1747 --- END OF REPORT Reason [...] Problem Status W/U Status Risk Notes Problem 523713967 Colon cancer screening (Z12.11) Active confirmed Problem Gastroesophageal reflux disease (566023808) Gastroesophageal reflux disease (K21.9) Active confirmed Problem 727835580 Gastroesophageal reflux disease, unspecified whether esophagitis present (K21.9) Active confirmed Vital Signs Temperature 96.9 degrees Fahrenheit 04/09/2024 Blood pressure diastolic 00 mm Hg 04/09/2024 Height 5 ft 5 in in 04/09/2024 Blood pressure systolic 000 mm Hg 04/09/2024 Weight 190 lbs 04/09/2024 BMI 31.61 kg/m2 04/09/2024 Encounters Encounter Location Date Provider Diagnosis [facility] Outpatient [address] [place] [phone] 05/15/2024 Boyd Muniz Jr Encounter for screening colonoscopy Z12.11 and Gastroesophageal reflux disease K21.9 [facility] [address] [place] [phone] 04/09/2024 Boyd Muniz Jr Gastroesophageal reflux disease, unspecified whether esophagitis present K21.9 and Colon cancer screening Z12.11 [facility] [address] [place] [address] [address] 04/20/[address] [facility] [address] [place] [phone] 04/23/[address] [facility] [address] [place] [address] [address] 05/28/2024 Boyd Muniz Jr Assessments Encounter Date [...] [employer] [place] [address] [address] [place] [address] [id number] [place] OWUSU Self - patient is the insured Medical (General) History Medical History History ICD Code Prediabetes Elevated alkaline phosphatase Elevated BMI Vitamin D deficiency Surgical History Surgery Date(Month/Year)
--- OUTSIDE RECORDS SUMMARY | 2025-02-22 18:19 | XMS_ITS ---
Author Organization [facility] Address [address] [place] [phone] Care Team Providers Care Optician Name Role Phone Ap BENNETT, [facility] Primary [facility] Provider Boyd Mccormack Jr REASON FOR VISIT labs Encounters Encounter Location Date Provider Diagnosis [facility] [address] [place] [phone] 04/23/2024 Boyd Muniz Jr Plan Of Treatment No Information Progress Notes * DEANCOLLEEN NDOB: [birth year] (64 yo F)Acc No.[id number]:04/23/2024 Patient:?JULIETA DEANAUGUSTINE Snyder :1960???Age:64 Y???Sex:Female Address:[address] [place] [address] * true * Date:? Generated for Printi kvng/Russell/eTransmitting on:?02/22/2025 06:19 PM EDT
--- OUTSIDE RECORDS SUMMARY | 2025-02-22 18:19 | XMS_ITS ---
Author Organization [facility] Address [address] [place] [phone] Care Team Providers Care Cotton Washer Name Role Phone Ap BENNETT, [facility] Primary Care Provider Boyd Mccormack Jr [phone] REASON FOR VISIT pathology Encounters Encounter Location Date Provider Diagnosis [facility] [address] [place] [phone] 05/28/2024 Boyd Muniz Jr Plan Of Treatment No Information Progress Notes * DEANCOLLEEN NDOB: [birth year] (64 yo F)Acc No.[id number]:05/28/2024 Patient:?JULIETA DEANUAGUSTINE Snyder :1960???Age:64 Y???Sex:Female Address:[address] [place] [address] * true * Date:? Generated for Printi kvng/Russell/eTransmitting on:?02/22/2025 06:19 PM EDT
--- OUTSIDE RECORDS SUMMARY | 2025-02-22 18:19 | XMS_ITS ---
Author Organization [facility] Address [address] [place] [phone] Care Team Providers Care Customer Assistant Name Role Phone Ap BENNETT, Chato Primary Care Provider Boyd Mccormack Jr REASON FOR VISIT gerd, screening colon Problems Problem Type SNOMED Code ICD Code Onset Dates Problem Status W/U Status Risk Notes Problem Gastroesophageal reflux disease (486919200) Gastroesophageal reflux disease (K21.9) Active confirmed Encounters Encounter Location Date Provider Diagnosis [facility] Outpatient [address] [place] [phone] 05/15/2024 Boyd Muniz Jr Encounter for screening colonoscopy Z12.11 and Gastroesophageal reflux disease K21.9 Assessments Encounter Date Diagnosis (ICD Code) Assessment Notes Treatment Notes Treatment Clinical Notes Section Notes 05/15/2024 Encounter for screening colonoscopy (ICD-10 - Z12.11) 05/15/2024 Gastroesophageal reflux disease (ICD-10 - K21.9) Plan Of Treatment No Information Progress Notes * COLLEEN DEAN NDOB: [birth year] (65 yo F)Acc No.[id number]:05/15/2024 EGD and COL/MAC Patient:?JULIETA DEANAUGUSTINE Snyder Provider:?Boyd Muniz MD :1960???Age:64 Y???Sex:Female D ate:05/15/2024 Address:[address] [place], [place] [phone] Pcp:Chato De Souza MD Subjective: * Chief Complaints: * ???1. Gerd, screening colon. * Medical History:? Objective: * Vitals:? Assessment: * Assessment: 1.?Encounter for screening c olonoscopy - Z12.11 (Primary)???2.?Gastroesophageal reflux disease - K21.9??? Plan: * Treatment: * Procedure Codes:?00153 DIAGN OSTIC COLONOSCOPY, 95434 UPPER GI ENDOSCOPY, BIOPSY * * The named appointment provid er may or may not be the originator of this progress note, and it is not deemed complete until electronically signed by the appointment provider. Sign off status: Pending * Provider:?Boyd Muniz MD Date:?0 05/15/2024 Generated for Candi calderon/Russell/Jasmeetitting on:?02/22/2025 06:19 PM EDT
== END 2025-02-22 16:01 | disposition home or self-care (01) ==
LOC: HO.HWS 15:33
PROVIDERS: PCP Internal Medicine; Visit Provider Obstetrics & Gynecology
DX: Z01.419 Encounter for gynecological examination (general) (routine) without abnormal findings (principal); L90.0 Lichen sclerosus et atrophicus
CPT/HCPCS: 99396; 99459

== ENCOUNTER 2025-03-12 11:51 | Outpatient (AMB) | payer OTHER, SELFPAY ==
[2025-03-12 13:11] VITALS: BP 132/80; PULSE 97; O2SAT 97; BMI 28.5
--- NOTE | 2025-03-12 13:11 | MHC.OFFWIV ---
Intake Vital Signs 03/12/25 13:11 Height 5 ft 5 in Weight 171 lb BMI 28.5 BP 132/80 Blood Pressure Location Lt brachial Position Sitting Pulse 97 Pulse Source Pulse Oximeter Pulse Oximetry (%) 97 Oxygen Delivery Method Room Air Intake Visit Reasons: EP Muscle Spasm in arm Intake Note: Patient here for muscle spasms that start in neck and radiates down the right arm. Patient Tobacco Use Status: Never used Tobacco Allergies Influenza Virus Vaccines Allergy (Verified 03/12/25 13:17) Angioedema metformin Adverse Reaction (Intermediate, Verified 03/12/25 13:17) GI upset Do you need a note to return to daycare/school/sports/work: Yes HPI HPI Comments History of Present Illness Details History of Present Illness - The patient is a 65-year-old female presenting with pain management for muscle tightness and pain radiating from the neck to the back. Has chronic issues with muscle spasms. some right arm pain but can move fully, has full strength and sensation - Pain is experienced radiating from the neck down to the entire back, worsening after periods of rest, and described as a tight wrap-like sensation. - No specific cervical spine pain upon palpation but significant muscle tightness noted. - There are no associated neurological symptoms such as weakness or sensory loss in the upper extremities. - The patient has a past history of trying muscle relaxants, but exact medications not know however they did not work. - Pain temporarily alleviated after naps or massage, returning typically within two hours. - Currently has no fever. Physical Exam General: Cooperative, healthy appearing, comfortable, no acute distress and well developed Orientation: Patient oriented x3 Limitations: No limitations Head: Normal to inspection Ears: Hearing grossly normal bilaterally Nose: Normal External nose present Face and sinus: Normal facial exam Eyes: Appearance normal, both eyes and all related structures Neck: Normal visual inspection and Yes full ROM, muscle spasm noted on right side Respiratory: Normal respiratory effort and able to speak in complete sentences. Skin: No rashes or lesions noted Neuro: Patient oriented x3 Back/spine: no ttp cervical spine, no ttp thoracic spine, right trap with muscle spasms and right thoracic spams palpated Extremities: Normal to inspection, right arm with full ROM in shoudler elbow wrist and hands/fingers, strength 5/5 and sensation in tact. no skin changes noted [facility] Medical History Palpitations Lichen sclerosus Depression Anxiety Elevated alkaline phosphatase level Dyslipidemia Vitamin D deficiency Obesity (BMI 30-39.9) Diabetes type 2, controlled Surgical History History of angiography History of sinus surgery History of colonoscopy History of appendectomy Family History Father Prostate cancer Mother Diabetes mellitus Dementia HTN (hypertension) Brother No problems noted. Brother No problems noted. Sister No problems noted. Daughter No problems noted. Sister Diabetes mellitus HTN (hypertension) Other Mental health disorder Social History Housing: House Alcohol intake: never Patient Tobacco Use Status: Never used Tobacco e-Cigarette/Vaping Use: Never Used Second Hand Smoke Exposure: No Current occupational status: employed Current occupation: [employer] Sexual orientation: Straight/Heterosexual Gender identity: Female Cognitive needs: No Hearing needs: No Vision needs: Yes Female Reproductive History Menstrual Age of Menarche: 14 Review of Systems Const All systems reviewed & are unremarkable except as noted in HPI and below Physical Exam Vital Signs: Last Vital Signs Pulse 97 03/12/25 13:11 BP 132/80 03/12/25 13:11 Pulse Ox 97 03/12/25 13:11 Oxygen Delivery Method Room Air 03/12/25 13:11 BMI result Body Mass Index 28.5 Assessment & Plan Assessment & Plan (1) Cervical pain: Code(s): M54.2 - Cervicalgia Plan: For symptoms of myalgia and cervical tightness radiating to the back, I have prescribed cyclobenzaprine as a muscle relaxant, recommending two tablets every eight hours, with a total of 20 tablets to be dispensed. Additionally, meloxicam has been prescribed as a once-daily anti-inflammatory agent while instructing the patient to avoid concurrent NSAID use. I crisis counselor regarding the potential sedative effects of cyclobenzaprine. I recommend engaging in physical therapy to address muscular stiffness. For unresolved blood work ordering issues, a message is relayed to Dr. De Souza for scheduling pertinent labs prior to the patient's upcoming physical in April. Patient was informed and verbally consented to the use of an ambient scribe for clinic note documentation during this visit. (2) Cervical paraspinal muscle spasm: Code(s): M62.838 - Other muscle spasm Plan: as above Orders: Orders PT Evaluation and Treatment Today M54.2 - Cervicalgia, M62.838 - Other muscle spasm Medications: New meloxicam 15 mg PO DAILY 15 tabs 0RF cyclobenzaprine Take 1-2 tablets every 8 hours as needed for muscle spasms 10 mg (2 x 5 mg) PO Q8H PRN 20 tabs 0RF Muscle Spasm Coding Level of Care Code Est Pt Level 3 (16364) Diagnoses Cervical pain M54.2 Cervical paraspinal muscle spasm M62.838
== END 2025-03-12 13:36 | disposition home or self-care (01) ==
PROVIDERS: PCP Internal Medicine; Visit Provider Physician Assistant
DX: M54.2 Cervicalgia (principal); M62.838 Other muscle spasm

== ENCOUNTER → 2025-03-12 11:51 | Outpatient (BNVA) | payer OTHER, SELFPAY | PROVIDERS: PCP Internal Medicine; Visit Provider Physician Assistant ==

== ENCOUNTER 2025-03-23 08:19 | Outpatient (AMB) | payer OTHER, SELFPAY ==
--- NOTE | 2025-03-23 08:27 | A.OFFVIS_ITS ---
Intake Visit Reasons: Microscopic hematuria Intake Note: New patient presents today for initial visit for microscopic hematuria Urology Medication:Vitamin B2, Vitamin B12 Blood Thinner:None Antibiotic Allergies:None PVR:440ml Allergies Influenza Virus Vaccines Allergy (Verified 05/20/25 11:26) Angioedema metformin Adverse Reaction (Intermediate, Verified 05/20/25 11:26) GI upset Medication List - Last Reconciled 03/23/25 by José Faust MD blood sugar diagnostic (Contour Next Test Strips) Test blood sugar twice a day blood-glucose meter (Contour Next Gen Meter) As directed cholecalciferol (vitamin D3) 50 mcg PO DAILY 30 days clobetasol 0.05% 1 appl topical BEDTIME clotrimazole-betamethasone 1-0.05 % 1 appl topical ONCE 30 days cyanocobalamin (vitamin B-12) 1,000 mcg PO DAILY 90 days cyclobenzaprine 10 mg (2 x 5 mg) PO Q8H PRN escitalopram oxalate 20 mg PO DAILY 90 days lancets (Microlet Lancet) Test blood sugar twice a day meloxicam 15 mg PO DAILY metoprolol succinate ER (Toprol XL) 25 mg PO DAILY montelukast 10 mg PO DAILY 90 days omeprazole 20 mg PO DAILY riboflavin (vitamin B2) 400 mg PO DAILY 30 days rimegepant (Nurtec ODT) 75 mg PO ONCE PRN 30 days MDD 1 tab rosuvastatin 10 mg PO BEDTIME semaglutide 1 mg (0.75 mL) subcut QWEEK 90 days HPI Comments Details: Ca is a 65-year-old who who is here for evaluation for microscopic hematuria. The patient states that she gets UTI's. Denies history of nicotine use. In review of her chart she had a positive urine culture October 2024. She denies gross hematuria. I have discussed that recurrent UTIs can be associated with sexual activity and there are associations related to postmenopausal estrogen changes. Discussed further evaluation with CT urogram, urine cytology and will send a surveillance urine culture. Follow-up office cystoscopy. [facility] Medical History Palpitations Lichen sclerosus Depression Anxiety Elevated alkaline phosphatase level Dyslipidemia Vitamin D deficiency Obesity (BMI 30-39.9) Diabetes type 2, controlled Surgical History History of angiography History of sinus surgery History of colonoscopy History of appendectomy Family History Father Prostate cancer Mother Diabetes mellitus Dementia HTN (hypertension) Brother No problems noted. Brother No problems noted. Sister No problems noted. Daughter No problems noted. Sister Diabetes mellitus HTN (hypertension) Other Mental health disorder Social History Housing: House Alcohol intake: never Patient Tobacco Use Status: Never used Tobacco e-Cigarette/Vaping Use: Never Used Second Hand Smoke Exposure: No Current occupational status: employed Current occupation: [employer] Sexual orientation: Straight/Heterosexual Gender identity: Female Cognitive needs: No Hearing needs: No Vision needs: Yes Female Reproductive History Menstrual Age of Menarche: 14 Review of Systems Const All systems reviewed & are unremarkable except as noted in HPI and below Reports no additional complaints Eyes Reports no additional complaints ENT Reports no additional complaints Card Reports no additional complaints Resp Reports no additional complaints GI Reports no additional complaints Reports as per HPI Musc Reports no additional complaints Skin/Breast Reports system reviewed and no additional complaints, except as documented Neuro Reports no additional complaints Psych Reports no additional complaints Endo Reports no additional complaints Eris/Lymph Reports no additional complaints Aller/Immun Reports no additional complaints Physical Exam Const General: cooperative, healthy appearing and no acute distress Orientation/consciousness: patient oriented x3 HEENT Head: Yes normal to inspection, Yes normocephalic and Yes atraumatic Eyes Conjunctivae: conjunctivae normal Neck Neck: Yes normal visual inspection and Yes trachea midline Chest Chest palpation & inspection: normal inspection of the chest Resp Effort & Inspection: normal respiratory effort GI Inspection: Yes normal to inspection Neuro General: patient oriented x3 Psych Appearance: grossly normal Office Procedures Post Void Residual Post Residual Void Details: The patient was not able to give a urine specimen, random bladder scan documented. Post Void Residual (PVR): 440 12618-Vmxi Void Residual by ultrasound Assessment & Plan Assessment & Plan (1) Recurrent UTI: Code(s): N39.0 - Urinary tract infection, site not specified Category: Medical (2) Microscopic hematuria: Code(s): R31.29 - Other microscopic hematuria Category: Medical (3) Hematuria: Code(s): R31.9 - Hematuria, unspecified Category: Medical Plan Discussed further evaluation with CT urogram, urine cytology and will send a surveillance urine culture. Follow-up office cystoscopy. Orders: Orders CT urogram 03/25/25 R31.9 - Hematuria, unspecified Urine Cytology 03/24/25 R31.29 - Other microscopic hematuria Blood Urea Nitrogen 03/24/25 R31.9 - Hematuria, unspecified Creatinine 03/24/25 R31.9 - Hematuria, unspecified Urine Culture 03/24/25 R31.29 - Other microscopic hematuria Patient Instructions: The patient had an opportunity to ask questions regarding treatment plan. The patient expressed understanding and agreement with the above treatment plan. The patient is aware they should contact our office by phone for worsening of their current condition or the appearance of new symptoms. Compliance is encouraged with any medications and followup testing that is ordered. It is a privilege to be allowed the opportunity to participate in the urologic care of your patient. If you have any questions or concerns regarding treatment for the above conditions please do not hesitate to contact me. The office telephone contact is [phone]. This note is constructed in part using voice recognition software. While every effort has been made to ensure accuracy bindery production manager errors may have been included. Yours sincerely, José Faust MD Coding Level of Care Code New Pt Level 4 (50957) Diagnoses Recurrent UTI N39.0 Microscopic hematuria R31.29 Hematuria R31.9 CPT Codes Post Residual Void - PVR CPT Code: 62802-Lmkc Void Residual by ultrasound ([id number])
--- OUTSIDE RECORDS SUMMARY | 2025-03-23 08:36 | XMS_ITS ---
Author Organization [facility] Address [address] [place] [phone] Care Team Providers Care Eye Clinic Manager Name Role Phone Ap BENNETT, Chato Primary Care Provider Boyd Mccormack Jr REASON FOR VISIT gerd, screening colon Problems Problem Type SNOMED Code ICD Code Onset Dates Problem Status W/U Status Risk Notes Problem Gastroesophageal reflux disease (K21.9) Active confirmed Encounters Encounter Location Date Provider Diagnosis [facility] [place] [address] [place] [phone] 05/15/2024 Boyd Muniz Jr Encounter for screening colonoscopy Z12.11 and Gastroesophageal reflux disease K21.9 Assessments Encounter Date Diagnosis (ICD Code) Assessment Notes Treatment Notes Treatment Clinical Notes Section Notes 05/15/2024 Encounter for screening colonoscopy (ICD-10 - Z12.11) 05/15/2024 Gastroesophageal reflux disease (ICD-10 - K21.9) Plan Of Treatment No Information Progress Notes * COLLEEN DEAN NDOB: [birth year] (65 yo F)Acc No.[id number]:05/15/2024 EGD and COL/MAC Patient:?COLLEEN DEAN Provider:?Boyd Muniz MD :1960???Age:64 Y???Sex:Female D ate:05/15/2024 Address:[address] [place], [place] [phone] Pcp:Chato De Souza MD Subjective: * Chief Complaints: * ???1. Gerd, screening colon. * Medical History:? Objective: * Vitals:? Assessment: * Assessment: 1.?Encounter for screening c olonoscopy - Z12.11 (Primary)???2.?Gastroesophageal reflux disease - K21.9??? Plan: * Treatment: * Procedure Codes:?58552 DIAGN OSTIC COLONOSCOPY, 26310 UPPER GI ENDOSCOPY, BIOPSY * * The named appointment provid er may or may not be the originator of this progress note, and it is not deemed complete until electronically signed by the appointment provider. Sign off status: Pending * Provider:?Boyd Muniz MD Date:?0 05/15/2024 Generated for Candi calderon/Russell/Jasmeetitting on:?03/23/2025 08:35 AM EDT
--- OUTSIDE RECORDS SUMMARY | 2025-03-23 08:36 | XMS_ITS ---
Author Organization [facility] Address [address] [place] [phone] Care Team Providers Care Tunnel Heading Inspector Name Role Phone Ap BENNETT, [facility] Primary [facility] Provider Boyd Mccormack Jr REASON FOR VISIT labs Encounters Encounter Location Date Provider Diagnosis [facility] [address] [place] [phone] 04/23/2024 Boyd Muniz Jr Plan Of Treatment No Information Progress Notes * DEANCOLLEEN NDOB: [birth year] (64 yo F)Acc No.[id number]:04/23/2024 Patient:?JULIETA DEANAUGUSTINE Snyder :1960???Age:64 Y???Sex:Female Address:[address] [place] [phone] * true * Date:? Generated for Printi kvng/Russell/eTransmitting on:?03/23/2025 08:35 AM EDT
--- OUTSIDE RECORDS SUMMARY | 2025-03-23 08:36 | XMS_ITS ---
Author Organization [facility] Address [address] [place] [phone] Care Team Providers Care Parachutist/Combatant Diver Qualified Name Role Phone Ap BENNET[facility], [facility] Primary [facility] Provider Boyd Mccormack Jr REASON FOR VISIT pathology Encounters Encounter Location Date Provider Diagnosis [facility] [address] [place] [phone] 05/28/2024 Boyd Muniz Jr Plan Of Treatment No Information Progress Notes * DEAN COLLEEN NDOB: [birth year] (64 yo F)Acc No.[id number]:05/28/2024 Patient:?JULIETA DEANAUGUSTINE Snyder :1960???Age:64 Y???Sex:Female Address:[address] [place] [phone] * true * Date:? Generated for Keveni kvng/Russell/eTransmitting on:?03/23/2025 08:35 AM EDT
--- OUTSIDE RECORDS SUMMARY | 2025-03-23 08:36 | XMS_ITS | Patient Health Record ---
Author Organization [facility] Address [address] [place] [address] Care Team Providers Care Chart Computer Name Role Phone Ap BENNETT, [facility] Primary [facility] Provider Boyd Mccormack Jr [phone] Allergies No Known Allergies Results Component Value Reference Range Notes Complete Blood Count no Diff Reviewed date:04/23/2024 10:06:15 AM Interpretation: Performing Lab:[address] [phone] Notes/Report: White Blood Count 8.6 4.8-10.8 X10*3/uL [...] Panel Reviewed date:04/23/2024 10:06:03 AM Interpretation: Performing Lab:[address] [address] Notes/Report: Bilirubin Total 0.4 0.0-1.0 mg/dL Bilirubin Direct 0.2 0.0-0.5 mg/dL Aspartate Amino Transferase 31 5-31 U/L Alanine Aminotransferase 40 0-31 U/L Total Protein 7.5 6.5-8.0 g/dL Albumin Level 4.3 3.5-5.0 g/dL Alkaline Phosphatase 122 39-117 U/L Lipase Reviewed date:04/23/2024 10:05:56 AM Interpretation: Performing Lab:[facility], [address] [place] [phone] Notes/Report: Lipase 15 8-78 U/L Hemoglobin A1c Reviewed date:04/23/2024 10:06:09 AM Interpretation: Performing Lab:[facility], [address] [place] [phone] Notes/Report: Hemoglobin A1c % 6.5 <6.0 % [...] average glucose, using the formula of the Z6O-Rmhrpbw Average Glucose study (ADAG), Diabetes Care, Vol.31,#8, Jun. 2007 Glucose, Whole Blood Reviewed date:05/15/2024 03:04:41 PM Interpretation: Performing Lab:[facility], [address] [place] [phone] Notes/Report: Glucose, Whole Blood 125 60-115 mg/dL METER # : [id number] Pathology Reviewed date:05/28/2024 10:59:23 AM Interpretation: Performing Lab:[facility], [address] [place] [phone] Notes/Report: --- Name: Ca Owusu Age/Sex: 64/F : 1960 [facility]#: [id number] Unit#: [id number] Attend Dr: Boyd Muniz MD Re05/15/24 Status : [facility] Location: [facility] Disch: --- SPEC : [id number] RECD : 05/15/24-1132 STATUS: LARRY BARRAZA NUM: [id number] MAGNUS: 05/15/24-1024 [facility] DR: Boyd Muniz MD ENTERED: 05/15/24-11 [...] Ca Owusu Age/Sex: 64/F : 1960 Unit#: [id number] Attend Dr: Boyd Muniz MD Re05/15/24 Status : [facility] Location: [facility] Disch: --- SPEC : [id number] RECD : 05/15/242 STATUS: LARRY DAI NUM: [id number] MAGNUS: 05/15/24-1024 [facility] DR: Boyd Muniz MD ENTERED: 05/15/24-11 40 SP TYPE: Surgical OTHR DR: Chato De Souza MD ORDERED: HE Stain/3, Gross Micro L4/2, IHC, Special st. 2/2, H. pylori, AB/PAS/2 Copies To: Boyd Muniz MD [facility] [address] [place] [address] [place] [address] Chato De Souza MD [facility] [address] [place], [place] [phone] --- Signed (signature on file) Aida Sebastopol 05/18/24 1747 --- END OF REPORT Reason For Referral No Information Medications Medication SIG (Take, Route, Frequency, Duration) Notes Start Date End Date Status Clobetasol Propionate 0.05 % APPLY TOPICALLY BEDTIME APPLY 2 TO 3 TIMES PER WEEK PER DR TANNER'S INSTRUCTIONS.... External for 30 Active Omeprazole 20 MG TAKE 1 CAPSULE BY MO [facility] EVERY DAY FOR 30 DAYS for [...] Problem Status W/U Status Risk Notes Problem [id number] Colon cancer screening (Z12.11) Active confirmed Problem Gastroesophageal reflux disease (K21.9) Active confirmed Problem [id number] Gastroesophageal reflux disease, unspecified whether esophagitis present (K21.9) Active confirmed Vital Signs Temperature 96.9 degrees Fahrenheit 04/09/2024 Blood pressure diastolic 00 mm Hg 04/09/2024 Height 5 ft 5 in in 04/09/2024 Blood pressure systolic 000 mm Hg 04/09/2024 Weight 190 lbs 04/09/2024 BMI 31.61 kg/m2 04/09/2024 Encounters Encounter Location Date Provider Diagnosis [facility] Outpatient [address] [place] [phone] 05/15/2024 Boyd Muniz Jr Encounter for screening colonoscopy Z12.11 and Gastroesophageal reflux disease K21.9 [facility] [address] [place] [phone] 04/09/2024 Boyd Muniz Jr Gastroesophageal reflux disease, unspecified whether esophagitis present K21.9 and Colon cancer screening Z12.11 [facility] [address] [place] [phone] 04/20/2024 Boyd Muniz Jr [facility] [address] [place] [phone] 04/23/2024 Boyd Muniz Jr [facility] [address] [place] [phone] 05/28/2024 Boyd Muniz Jr Assessments Encounter Date [...] [employer] [place] [address] [address] [place] [address] [id number] [place] Self - patient is the insured Medical (General) History Medical History History ICD Code Prediabetes Elevated alkaline phosphatase Elevated BMI Vitamin D deficiency Surgical History Surgery Date(Month/Year)
== END 2025-03-23 09:08 | disposition home or self-care (01) ==
LOC: HO.HUSH 08:20
PROVIDERS: PCP Internal Medicine; Visit Provider Urology
DX: N39.0 Urinary tract infection, site not specified (principal); R31.29 Other microscopic hematuria; R31.9 Hematuria, unspecified
CPT/HCPCS: 99204

== ENCOUNTER → 2025-03-23 08:19 | Outpatient (BNVA) | payer OTHER, SELFPAY | PROVIDERS: PCP Internal Medicine; Visit Provider Urology | DX: R31.29 Other microscopic hematuria (principal); N39.0 Urinary tract infection, site not specified | CPT/HCPCS: 51798 ==

== ENCOUNTER 2025-03-24 14:15 | Outpatient (REF) | payer OTHER, SELFPAY ==
[2025-03-24 14:46] LABS: Urine Cytology See Pathology rpt
[2025-03-24 14:58] LABS: Appearance Urine Clear; Color Urine Yellow; Glucose Urine UA Negative (Negative); Leukocyte Esterase Urine Moderate (2+) (Negative); Nitrite Urine Negative (Negative); PH 6.5 (5.0-9.0); UMIC TRIGGER UACC YES; Urine Blood Negative (Negative); Urine Ketones Negative (Negative); Urine Protein Negative (Neg-Trace)
[2025-03-24 15:09] LABS: Blood Urea Nitrogen 11 mg/dL (9-16); Estimated Glomerular Filt Rate > 60
--- OUTSIDE RECORDS SUMMARY | 2025-03-24 15:27 | XMS_ITS | Patient Health Record ---
Author Organization [facility] Address [address] [place] [address] Care Team Providers Care Steam Oven Operator Name Role Phone Ap BENNETT, [facility] Primary [facility] Provider Boyd Mccormack Jr Allergies No Known Allergies Results Component Value Reference Range Notes Complete Blood Count no Diff Reviewed date:04/23/2024 10:06:15 AM Interpretation: Performing Lab:[address] [phone] Notes/Report: White Blood Count 8.6 4.8-10.8 X10*3/uL [...] Panel Reviewed date:04/23/2024 10:06:03 AM Interpretation: Performing Lab:[address] [address] Notes/Report: Bilirubin Total 0.4 0.0-1.0 mg/dL Bilirubin Direct 0.2 0.0-0.5 mg/dL Aspartate Amino Transferase 31 5-31 U/L Alanine Aminotransferase 40 0-31 U/L Total Protein 7.5 6.5-8.0 g/dL Albumin Level 4.3 3.5-5.0 g/dL Alkaline Phosphatase 122 39-117 U/L Lipase Reviewed date:04/23/2024 10:05:56 AM Interpretation: Performing Lab:[facility], [address] [place] [phone] Notes/Report: Lipase 15 8-78 U/L Hemoglobin A1c Reviewed date:04/23/2024 10:06:09 AM Interpretation: Performing Lab:[facility], [address] [place] [phone] Notes/Report: Hemoglobin A1c % 6.5 <6.0 % [...] average glucose, using the formula of the R2G-Hkkarmb Average Glucose study (ADAG), Diabetes Care, Vol.31,#8, Jun. 2007 Glucose, Whole Blood Reviewed date:05/15/2024 03:04:41 PM Interpretation: Performing Lab:[facility], [address] [place] [phone] Notes/Report: Glucose, Whole Blood 125 60-115 mg/dL METER # : [id number] Pathology Reviewed date:05/28/2024 10:59:23 AM Interpretation: Performing Lab:[facility], [address] [place] [phone] Notes/Report: --- Name: Ca Owusu Age/Sex: 64/F : 1960 [facility]#: [id number] Unit#: [id number] Attend Dr: Boyd Muniz MD Re05/15/24 Status : [facility] Location: [facility] Disch: --- SPEC : [id number] RECD : 05/15/24-1132 STATUS: LARRY BARRAZA NUM: [id number] MAGNUS: 05/15/24-1024 [facility] DR: Boyd Muniz MD ENTERED: 05/15/24-11 [...] Ca Owusu Age/Sex: 64/F : 1960 Unit#: [id number] Attend Dr: Boyd Muniz MD Re05/15/24 Status : [facility] Location: [facility] Disch: --- SPEC : [id number] RECD : 05/15/242 STATUS: LARRY DAI NUM: [id number] MAGNUS: 05/15/24-1024 [facility] [address]: Boyd Muniz MD ENTERED: 05/15/24-11 40 SP TYPE: Surgical OTHR DR: Chato De Souza MD ORDERED: HE Stain/3, Gross Micro L4/2, IHC, Special st. 2/2, H. pylori, AB/PAS/2 Copies To: Boyd Muniz MD [facility] [address] [place] [address] [address] [place] [address] Chato De Souza MD [facility] [address] [place], [place] [id number] --- Signed (signature on file) Aida Mustang 05/18/24 1747 --- END OF REPORT Reason For Referral No Information Medications Medication SIG (Take, Route, Frequency, Duration) Notes Start Date End Date Status Clobetasol Propionate 0.05 % APPLY TOPICALLY BEDTIME APPLY 2 TO 3 TIMES PER WEEK PER DR TANNER'S INSTRUCTIONS.... External for 30 Active Omeprazole 20 MG TAKE 1 CAPSULE BY MO [facility] EVERY DAY FOR 30 [...] Problem Status W/U Status Risk Notes Problem [id number] Colon cancer screening (Z12.11) Active confirmed Problem Gastroesophageal reflux disease (K21.9) Active confirmed Problem [id number] Gastroesophageal reflux disease, unspecified whether esophagitis present (K21.9) Active confirmed Vital Signs Temperature 96.9 degrees Fahrenheit 04/09/2024 Blood pressure diastolic 00 mm Hg 04/09/2024 Height 5 ft 5 in in 04/09/2024 Blood pressure systolic 000 mm Hg 04/09/2024 Weight 190 lbs 04/09/2024 BMI 31.61 kg/m2 04/09/2024 Encounters Encounter Location Date Provider Diagnosis [facility] [place] [address] [place] [phone] 05/15/2024 Boyd Muniz Jr Encounter for screening colonoscopy Z12.11 and Gastroesophageal reflux disease K21.9 [facility] [address] [place] [address] 04/09/2024 Boyd Muniz Jr Gastroesophageal reflux disease, unspecified whether esophagitis present K21.9 and Colon cancer screening Z12.11 [facility] [address] [place] [address] 04/20/2024 Boyd Muniz Jr [facility] [address] [place] [phone] 04/23/2024 Boyd Muniz Jr [facility] [address] [place] [address] 05/28/2024 Boyd Muniz Jr Assessments Encounter Date [...] [employer] [place] [address] [address] [place] [address] [id number] CA OWUSU Self - patient is the insured Medical (General) History Medical History History ICD Code Prediabetes Elevated alkaline phosphatase Elevated BMI Vitamin D deficiency Surgical History Surgery Date(Month/Year)
--- OUTSIDE RECORDS SUMMARY | 2025-03-24 15:27 | XMS_ITS ---
Author Organization [facility] Address [address] [place] [address] Care Team Providers Care Tdp Displays Analyst Name Role Phone Ap BENNETT, Chato Primary Care Provider Boyd Mccormack Jr REASON FOR VISIT gerd, screening colon Problems Problem Type SNOMED Code ICD Code Onset Dates Problem Status W/U Status Risk Notes Problem Gastroesophageal reflux disease (K21.9) Active confirmed Encounters Encounter Location Date Provider Diagnosis [facility] [place] [address] [place] [phone] 05/15/2024 Boyd Muniz Jr Encounter for screening colonoscopy Z12.11 and Gastroesophageal reflux disease K21.9 Assessments Encounter Date Diagnosis (ICD Code) Assessment Notes Treatment Notes Treatment Clinical Notes Section Notes 05/15/2024 Encounter for screening colonoscopy (ICD-10 - Z12.11) 05/15/2024 Gastroesophageal reflux disease (ICD-10 - K21.9) Plan Of Treatment No Information Progress Notes * COLLEEN DEAN NDOB: [birth year] (65 yo F)Acc No.[id number]:05/15/2024 EGD and COL/MAC Patient:?COLLEEN DEAN Provider:?Boyd Muniz MD :1960???Age:64 Y???Sex:Female D ate:05/15/2024 Address:[address] [place], [place] [phone] Pcp:Chato De Souza MD Subjective: * Chief Complaints: * ???1. Gerd, screening colon. * Medical History:? Objective: * Vitals:? Assessment: * Assessment: 1.?Encounter for screening c olonoscopy - Z12.11 (Primary)???2.?Gastroesophageal reflux disease - K21.9??? Plan: * Treatment: * Procedure Codes:?85086 DIAGN OSTIC COLONOSCOPY, 66869 UPPER GI ENDOSCOPY, BIOPSY * * The named appointment provid er may or may not be the originator of this progress note, and it is not deemed complete until electronically signed by the appointment provider. Sign off status: Pending * Provider:?Boyd Muniz MD Date:?0 05/15/2024 Generated for Candi calderon/Russell/Jasmeetitting on:?03/24/2025 03:26 PM EDT
--- OUTSIDE RECORDS SUMMARY | 2025-03-24 15:27 | XMS_ITS ---
Author Organization [facility] Address [address] [place] [address] Care Team Providers Care Electronics Technician Name Role Phone Ap BENNETT, [facility] Primary Care Provider Boyd Mccormack Jr REASON FOR VISIT pathology Encounters Encounter Location Date Provider Diagnosis [facility] [address] [place] [phone] 05/28/2024 Boyd Muniz Jr Plan Of Treatment No Information Progress Notes * DEAN COLLEEN NDOB: [birth year] (64 yo F)Acc No.[id number]:05/28/2024 Patient:?JULIETA DEANAUGUSTINE Snyder :1960???Age:64 Y???Sex:Female Address:[address] [place] [address] * true * Date:? Generated for Printi kvng/Russell/eTransmitting on:?03/24/2025 03:27 PM EDT
--- OUTSIDE RECORDS SUMMARY | 2025-03-24 15:27 | XMS_ITS ---
Author Organization [facility] Address [address] [place] [address] Care Team Providers Care Pediatric Surgeon Name Role Phone Ap BENNETT, [facility] Primary Care Provider Boyd Mccormack Jr REASON FOR VISIT labs Encounters Encounter Location Date Provider Diagnosis [facility] [address] [place] [phone] 04/23/2024 Boyd Muniz Jr Plan Of Treatment No Information Progress Notes * DEANCOLLEEN NDOB: [birth year] (64 yo F)Acc No.[id number]:04/23/2024 Patient:?JULIETA DEANAUGUSTINE Snyder :1960???Age:64 Y???Sex:Female Address:[address] [place] [address] * true * Date:? Generated for Printi kvng/Russell/eTransmitting on:?03/24/2025 03:27 PM EDT
[2025-03-24 15:59] LABS: Bacteria Urine None Seen (None Seen); Hyaline Casts Urine 0-2 /LPF (0-2); RBC Urine 0-2 /HPF (0-2); Squamous Epithelial Cell Urine 0-2 /HPF (0-2); UACC Culture Trigger YES; WBC Urine 0-5 /HPF (0-5)
== END 2025-03-24 14:16 | disposition home or self-care (01) ==
LOC: HO.LAB 14:15
PROVIDERS: PCP Internal Medicine; Visit Provider Urology
DX: R31.29 Other microscopic hematuria (principal); R31.9 Hematuria, unspecified
CPT/HCPCS: 36415; 81001; 82565; 84520; 87086; 88112

== ENCOUNTER 2025-03-25 11:07 | Outpatient (REF) | payer OTHER, SELFPAY ==
--- NOTE | ~2025-03-25 | CT_ITS ---
EXAMINATION: CT ABDOMEN PELVIS UROGRAPHY WITHOUT THEN WITH IV CONTRAST HISTORY: R31.9 - Hematuria, unspecified COMPARISON: None. TECHNIQUE: CT scan of the abdomen and pelvis was performed before and after the intravenous administration of 85 mL Omnipaque 350. Postcontrast images were obtained using a split bolus technique. Coronal and sagittal reformatted images were generated and reviewed. Oral contrast material was not administered per department protocol. This CT exam was performed with one or more of the following dose reduction techniques: automated exposure control, adjustment of the mA and/or kV according to patient size, use of iterative reconstruction technique. DLP: 936 mGy-cm ABDOMEN: There is respiratory motion artifact. LOWER CHEST: The visualized lung bases are clear. There is no pleural effusion. CARDIOVASCULATURE: The heart is normal in size. There is no pericardial effusion. LIVER: The liver is normal in size and contour, but demonstrates diffusely decreased attenuation, consistent with steatosis. No liver mass is identified. The hepatic and portal veins are patent. GALLBLADDER / BILE DUCTS: The gallbladder is unremarkable. There is no intra or extrahepatic biliary ductal dilatation. SPLEEN: The spleen is normal in size. No focal splenic lesion is identified. PANCREAS: The pancreas is unremarkable in appearance. ADRENAL GLANDS: Within normal limits. KIDNEYS/RETROPERITONEUM: No renal or ureteral calculi are identified. There is no hydronephrosis or hydroureter. A tiny subcentimeter hypodensity in the interpolar region of the left kidney is too small to accurately characterize. The intrarenal collecting systems are unremarkable in appearance. No ureteral filling defects are identified. LYMPH NODES: No abdominal or pelvic lymphadenopathy. VASCULATURE: The abdominal aorta is normal in caliber. MESENTERY/PERITONEUM: No free fluid. No masses. There is no free intraperitoneal gas. STOMACH: The stomach is unremarkable. SMALL BOWEL: The small bowel is normal in caliber. COLON: The colon is unremarkable. APPENDIX: The appendix is surgically absent. URINARY BLADDER/PELVIC ORGANS: The urinary bladder is unremarkable. The uterus is unremarkable. BONES / SOFT TISSUES: No suspicious bony or soft tissue abnormalities. CT/CT urogram IMPRESSION: 1. Essentially unremarkable CT urogram. No cause for hematuria is identified. 2. Hepatic steatosis Electronically signed by: Beto Jerez MD 03/25/2025 11:46 AM EDT
[2025-03-25] MEDS: iohexoL 350 MG/ML 100 ML INFUS..BTL IV (11:31)
--- OUTSIDE RECORDS SUMMARY | 2025-03-25 12:38 | XMS_ITS ---
Author Organization [facility] Address [address] [place] [address] Care Team Providers Care Cell Assembly Pinner Name Role Phone Ap BENNETT, [facility] Primary [facility] Provider Boyd Mccormack Jr REASON FOR VISIT labs Encounters Encounter Location Date Provider Diagnosis [facility] [address] [place] [phone] 04/23/2024 Boyd Muniz Jr Plan Of Treatment No Information Progress Notes * DEAN COLLEEN NDOB: [birth year] (64 yo F)Acc No.[id number]:04/23/2024 Patient:?JULIETA DEANAUGUSTINE Snyder :1960???Age:64 Y???Sex:Female Address:[address] [place] [address] * true * Date:? Generated for Printi kvng/Russell/eTransmitting on:?03/25/2025 12:38 PM EDT
--- OUTSIDE RECORDS SUMMARY | 2025-03-25 12:38 | XMS_ITS ---
Author Organization [facility] Address [address] [place] [address] Care Team Providers Care Housekeeping Room Attendant Name Role Phone Ap BENNETT, Chato Primary Care Provider Boyd Mccormack Jr REASON FOR VISIT gerd, screening colon Problems Problem Type SNOMED Code ICD Code Onset Dates Problem Status W/U Status Risk Notes Problem Gastroesophageal reflux disease (K21.9) Active confirmed Encounters Encounter Location Date Provider Diagnosis [facility] [place] [address] [place] [phone] 05/15/2024 Boyd Muniz Jr Encounter for screening colonoscopy Z12.11 and Gastroesophageal reflux disease K21.9 Assessments Encounter Date Diagnosis (ICD Code) Assessment Notes Treatment Notes Treatment Clinical Notes Section Notes 05/15/2024 Encounter for screening colonoscopy (ICD-10 - Z12.11) 05/15/2024 Gastroesophageal reflux disease (ICD-10 - K21.9) Plan Of Treatment No Information Progress Notes * COLLEEN DEAN NDOB: [birth year] (65 yo F)Acc No.[id number]:05/15/2024 EGD and COL/MAC Patient:?COLLEEN DEAN Provider:?Boyd Muniz MD :1960???Age:64 Y???Sex:Female D ate:05/15/2024 Address:[address] [place], [place] [phone] Pcp:Chato De Souza MD Subjective: * Chief Complaints: * ???1. Gerd, screening colon. * Medical History:? Objective: * Vitals:? Assessment: * Assessment: 1.?Encounter for screening c olonoscopy - Z12.11 (Primary)???2.?Gastroesophageal reflux disease - K21.9??? Plan: * Treatment: * Procedure Codes:?41030 DIAGN OSTIC COLONOSCOPY, 37533 UPPER GI ENDOSCOPY, BIOPSY * * The named appointment provid er may or may not be the originator of this progress note, and it is not deemed complete until electronically signed by the appointment provider. Sign off status: Pending * Provider:?Boyd Muniz MD Date:?0 05/15/2024 Generated for Candi calderon/Russell/Jasmeetitting on:?03/25/2025 12:37 PM EDT
--- OUTSIDE RECORDS SUMMARY | 2025-03-25 12:38 | XMS_ITS ---
Author Organization [facility] Address [address] [place] [phone] Care Team Providers Care Manager Mutual Fund Name Role Phone Ap BENNETT, [facility] Primary Care Provider Boyd Mccormack Jr REASON FOR VISIT pathology Encounters Encounter Location Date Provider Diagnosis [facility] [address] [place] [phone] 05/28/2024 Boyd Muniz Jr Plan Of Treatment No Information Progress Notes * DEAN COLLEEN NDOB: [birth year] (64 yo F)Acc No.[id number]:05/28/2024 Patient:?JULIETA DEANAUGUSTINE Snyder :1960???Age:64 Y???Sex:Female Address:[address] [place] [address] * true * Date:? Generated for Printi kvng/Russell/eTransmitting on:?03/25/2025 12:38 PM EDT
--- OUTSIDE RECORDS SUMMARY | 2025-03-25 12:38 | XMS_ITS | Patient Health Record ---
Author Organization [facility] Address [address] [place] [address] Care Team Providers Care Well Service Derrick Worker Name Role Phone Ap BENNETT, [facility] Primary Care Provider Boyd Mccormack Jr [phone] Allergies No Known Allergies Results Component Value Reference Range Notes Complete Blood Count no Diff Reviewed date:04/23/2024 10:06:15 AM Interpretation: Performing Lab:[address] [address] Notes/Report: White Blood Count 8.6 4.8-10.8 X10*3/uL [...] Panel Reviewed date:04/23/2024 10:06:03 AM Interpretation: Performing Lab:[address] [address] Notes/Report: Bilirubin Total 0.4 0.0-1.0 mg/dL Bilirubin Direct 0.2 0.0-0.5 mg/dL Aspartate Amino Transferase 31 5-31 U/L Alanine Aminotransferase 40 0-31 U/L Total Protein 7.5 6.5-8.0 g/dL Albumin Level 4.3 3.5-5.0 g/dL Alkaline Phosphatase 122 39-117 U/L Lipase Reviewed date:04/23/2024 10:05:56 AM Interpretation: Performing Lab:[facility], [address] [place] [phone] Notes/Report: Lipase 15 8-78 U/L Hemoglobin A1c Reviewed date:04/23/2024 10:06:09 AM Interpretation: Performing Lab:[facility], [address] [place] [phone] Notes/Report: Hemoglobin A1c % 6.5 <6.0 % [...] average glucose, using the formula of the H4A-Ofszppx Average Glucose study (ADAG), Diabetes Care, Vol.31,#8, Jun. 2007 Glucose, Whole Blood Reviewed date:05/15/2024 03:04:41 PM Interpretation: Performing Lab:[facility], [address] [place] [phone] Notes/Report: Glucose, Whole Blood 125 60-115 mg/dL METER # : [id number] Pathology Reviewed date:05/28/2024 10:59:23 AM Interpretation: Performing Lab:[facility], [address] [place] [phone] Notes/Report: --- Name: Ca Owusu Age/Sex: 64/F : 1960 [facility]#: [id number] Unit#: [id number] Attend Dr: Boyd Muniz MD Re05/15/24 Status : [facility] Location: [facility] Disch: --- SPEC : [id number] RECD : 05/15/24-1132 STATUS: LARRY BARRAZA NUM: [id number] MAGNUS: 05/15/24-1024 [facility] DR: Boyd Muniz MD ENTERED: 05/15/24-11 [...] Ca Owusu Age/Sex: 64/F : 1960 Unit#: [id number] Attend Dr: Boyd Muniz MD Re05/15/24 Status : [facility] Location: [facility] Disch: --- SPEC : [id number] RECD : 05/15/242 STATUS: LARRY DAI NUM: [id number] MAGNUS: 05/15/24-1024 [facility] [address]: Boyd Muniz MD ENTERED: 05/15/24-11 40 SP TYPE: Surgical OTHR DR: Chato De Souza MD ORDERED: HE Stain/3, Gross Micro L4/2, IHC, Special st. 2/2, H. pylori, AB/PAS/2 Copies To: Boyd Muniz MD [facility] [address] [place] [address] [place] [address] Chato De Souza MD [facility] [address] [place], [place] [phone] --- Signed (signature on file) Aida San Isidro 05/18/24 1747 --- END OF REPORT Reason For Referral No Information Medications Medication SIG (Take, Route, Frequency, Duration) Notes Start Date End Date Status Clobetasol Propionate 0.05 % APPLY TOPICALLY BEDTIME APPLY 2 TO 3 TIMES PER WEEK PER DR TANNER'S INSTRUCTIONS.... External for 30 Active Omeprazole 20 MG TAKE 1 CAPSULE BY MO [facility] EVERY DAY FOR 30 DAYS [...] Problem Status W/U Status Risk Notes Problem [id number] Colon cancer screening (Z12.11) Active confirmed Problem Gastroesophageal reflux disease (K21.9) Active confirmed Problem 646443227 Gastroesophageal reflux disease, unspecified whether esophagitis present (K21.9) Active confirmed Vital Signs Temperature 96.9 degrees Fahrenheit 04/09/2024 Blood pressure diastolic 00 mm Hg 04/09/2024 Height 5 ft 5 in in 04/09/2024 Blood pressure systolic 000 mm Hg 04/09/2024 Weight 190 lbs 04/09/2024 BMI 31.61 kg/m2 04/09/2024 Encounters Encounter Location Date Provider Diagnosis [facility] [place] [address] [place] [phone] 05/15/2024 Boyd Muniz Jr Encounter for screening colonoscopy Z12.11 and Gastroesophageal reflux disease K21.9 [facility] [address] [place] [phone] 04/09/2024 Boyd Muniz Jr Gastroesophageal reflux disease, unspecified whether esophagitis present K21.9 and Colon cancer screening Z12.11 [facility] [address] [place] [phone] 04/20/2024 Boyd Muniz Jr [facility] [address] [place] [phone] 04/23/2024 Boyd Muniz Jr [facility] [address] [place] [phone] 05/28/2024 Boyd Muniz Jr Assessments Encounter Date [...] [employer] [place] [address] [address] [place] [address] [id number] CA OWUSU Self - patient is the insured Medical (General) History Medical History History ICD Code Prediabetes Elevated alkaline phosphatase Elevated BMI Vitamin D deficiency Surgical History Surgery Date(Month/Year)
== END 2025-03-25 11:08 | disposition home or self-care (01) ==
LOC: HO.CT 11:07
PROVIDERS: Visit Provider Urology
DX: R31.9 Hematuria, unspecified (principal); K52.9 Noninfective gastroenteritis and colitis, unspecified
CPT/HCPCS: 74178; 87507; Q9967

== ENCOUNTER → 2025-03-25 11:08 | Outpatient (BNV) | payer OTHER, SELFPAY | PROVIDERS: Visit Provider Radiology Diagnostic Radiology | DX: K76.0 Fatty (change of) liver, not elsewhere classified (principal) | CPT/HCPCS: 74178 ==

== ENCOUNTER 2025-04-28 15:15 | Outpatient (AMB) | payer OTHER, SELFPAY ==
[2025-04-28 15:17] VITALS: BP 114/80; PULSE 87; RESP 16; TEMP 36.8; O2SAT 97; BMI 28.1
--- NOTE | 2025-04-28 15:17 | A.OFFPC_ITS ---
Vital Signs 04/28/25 15:17 Height 5 ft 5 in Weight 169 lb BMI 28.1 BP 114/80 Blood Pressure Location Rt brachial Position Sitting Respiration 16 Pulse 87 Pulse Source Pulse Oximeter Temp 98.2 F Temp Source Oral Pulse Oximetry (%) 97 Oxygen Delivery Method Room Air Intake Visit Reasons: PE Allergies Influenza Virus Vaccines Allergy (Verified 04/28/25 15:21) Angioedema metformin Adverse Reaction (Intermediate, Verified 04/28/25 15:21) GI upset Medication List - Last Reconciled 04/28/25 by Chato De Souza MD blood sugar diagnostic (Contour Next Test Strips) Test blood sugar twice a day blood-glucose meter (Contour Next Gen Meter) As directed cholecalciferol (vitamin D3) 50 mcg PO DAILY 30 days clobetasol 0.05% 1 appl topical BEDTIME clotrimazole-betamethasone 1-0.05 % 1 appl topical ONCE 30 days cyanocobalamin (vitamin B-12) 1,000 mcg PO DAILY 90 days lancets (Microlet Lancet) Test blood sugar twice a day meloxicam 15 mg PO DAILY metoprolol succinate ER (Toprol XL) 25 mg PO DAILY montelukast 10 mg PO DAILY 90 days omeprazole 20 mg PO DAILY rosuvastatin 10 mg PO BEDTIME semaglutide 1 mg (0.75 mL) subcut QWEEK 90 days Tobacco use date assessed: 04/28/25 Dental Screening Dental Screen Date: 04/28/25 Did you have a dental visit in the last 12 months?: Yes Did you have a dental problem in the last 6 months where you did not have access to dental care?: No Was dental information given to patient?: Patient has dentist HPI PE HPI Details Physical exam - The patient is a 65-year-old female pr esenting with issues regarding weight management, persistent GERD, controlled hypertension, and type 2 diabetes mellitus management. - Reports gradual weight loss from 184.3 pounds in November to 169 pounds currently, through the use of semaglutide injections. - Blood pressure is well-controlled at 1 14/80 mmHg with current antihypertensive therapy of metoprolol 25 mg. - Reports taking montelukast 10 mg for a llergies. - Taking omeprazole 20 mg for ongoing GE RD, with no current symptoms of nausea, vomiting, or diarrhea since managing the condition. - Reviewed history of a urinary issue wi th unexplained hematuria; recent CT urogram was unremarkable. - Management of hyperlipidemia with rosu vastatin 10 mg. - Uses steroid creams for eczema. 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 - Discussed recent experience with clari cisnerosl food poisoning but no chronic GI symptoms noted beyond managed GERD. 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 - Actively working on weight loss and paez s seen a gradual reduction in weight with current medications. - Engages in regular walking for exercis e. - Reports improved energy levels and a h ealthier diet. Health Maintenance - Recent OBGYN check with a negative donta mogram. - Requires follow-up on blood work due t o history of diabetes and elevated hemoglobin A1c of 6.2. - Discussed recent CT urogram that was e ssentially unremarkable. - overweight, continue semaglutide leadi ng to gradual weight loss. - colonoscopy [address] Muniz [facility] Dr. 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 Diagnostic results - Labs: November CBC normal, Hemoglobin A 1c elevated at 6.2. - Tests: Mammogram negative. - Diagnostics: CT Urogram on February 23 was unremarkable for causes of hematuria. Patient Instructions - Continue current medications as prescr ibed. - Follow a healthy diet and maintain reg ular exercise. - Monitor weight and aim for further red uction to 150 pounds as a goal. - Use cyclobenzaprine for muscle spasms as needed before bed. - Follow-up for blood work as previously ordered to monitor diabetes management. - Return for re-evaluation in three [facility] hs. Review of Systems - General: No fever no chills - Neurological: No headaches no dizzin ess - Ear nose throat: No sore throat no hearing difficulty no ear pain - Cardiovascular: No syncope, no chest pain, no palpitations - Gastrointestinal: No nausea vomiting or diarrhea - Endocrine: No polyuria polydipsia no heat intolerance - Genitourinary: No dysuria - Skin: No new complaints Physical Exam General: Cooperative, healthy appearing, comfortable, no acute distress Orientation: Patient oriented x3 Limitations: None Head: Normal to inspection Ears: Within normal limit visually Nose: Normal external nose present Face and sinus: Normal facial exam Eyes: Appearance normal, extraocular movement intact pupils reactive Neck: Normal visual inspection and supple Respiratory: Normal respiratory effort and able to speak in complete sentences. Clear to auscultation, no stridor Cardiovascular: S1 and S2 RRR Breast exam through OBGYN GI: Normal to inspection. Soft to palpation and nontender Skin: Turgor normal, no acute findings, Neuro: Patient oriented x3, motor sensory intact, balance intact, tandem pass Extremities: Normal to inspection, range of motion intact PFSH Medical History Palpitations Lichen sclerosus Depression Anxiety Elevated alkaline phosphatase level Dyslipidemia Vitamin D deficiency Obesity (BMI 30-39.9) Diabetes type 2, controlled Surgical History History of angiography History of sinus surgery History of colonoscopy History of appendectomy Family History Father Prostate cancer Mother Diabetes mellitus Dementia HTN (hypertension) Brother No problems noted. Brother No problems noted. Sister No problems noted. Daughter No problems noted. Sister Diabetes mellitus HTN (hypertension) Other Mental health disorder Social History Housing: House Alcohol intake: never Patient Tobacco Use Status: Never used Tobacco e-Cigarette/Vaping Use: Never Used Second Hand Smoke Exposure: No Current occupational status: employed Current occupation: [employer] Sexual orientation: Straight/Heterosexual Gender identity: Female Cognitive needs: No Hearing needs: No Vision needs: Yes Female Reproductive History Menstrual Age of Menarche: 14 Questionnaire Thrive Questionnaire Date Thrive assessed: 12/11/24 I am a: Patient What is your living situation today?: I have a steady place to live Within the past 12 months, did the food you bought not last and you didn't have the money to get more?: Never true Within the past 12 months, did you worry whether your food would run out before you got money to buy more?: Never true Do you have trouble paying for medicines?: No Do you have trouble getting transportation to medical appointments?: No Do you have trouble paying your heating and electricity bill?: No Do you have trouble taking care of your child, family member or friend?: No Do you have trouble with day-to-day activities such as bathing, preparing meals, shopping, managing finances, etc.?: No Are you currently unemployed and looking for a job?: No Are you interested in more education?: No Please select the resources that you would like help with: None Currently or been in a relationship where the following occur: No concerns reported THRIVE Score: 0 AIDA-7 AMB Questionnaire AIDA-7 Date AIDA - 7 assessed: 12/11/24 Source: Developed by Drs. Beto Griffin, Latoina Kimball, Dann Spaulding and colleagues, with an educational venancio from [employer]. Physical exam (Primary Care) Vital Signs: Last Vital Signs Temp 98.2 F 04/28/25 15:17 Pulse 87 04/28/25 15:17 BP 114/80 04/28/25 15:17 Pulse Ox 97 04/28/25 15:17 Oxygen Delivery Method Room Air 04/28/25 15:17 BMI result Body Mass Index 28.1 Tobacco/Smoking Status: Tobacco use Status Tobacco use date assessed 04/28/25 04/28/25 15:23 Patient Tobacco Use Status Never used Tobacco 04/28/25 15:17 e-Cigarette/Vaping Use Never Used 04/28/25 15:17 Thrive Assessment: Date of Thrive Assessment Date Thrive assessed 12/11/24 04/28/25 15:17 Currently or been in a relationship where the following occur: No concerns reported Results AMB Hemoglobin A1c AMB Hemoglobin A1c 5.6 % Last Edit by Marisel Coles CMA on 04/28/25 15:39 Results Reviewed Results Reviewed: Laboratory Last Values Hgb A1c (Clinic) 5.6 % (4.0-6.0) 04/28/25 15:19 Coding Level of Care Code Est Pt Prev Care 40-64y(61883) Diagnoses Adult general medical exam Z00.00 Controlled type 2 diabetes mellitus without complication, with long-term current use of insulin E11.9; Z79.4 Diabetes mellitus complication status: without complication Diabetes mellitus prison insulin use: with prison use Hypertension, essential I10 Vitamin D deficiency E55.9 Environmental allergies Z91.09 Lipid disorder E78.9 Anxiety, generalized F41.1 B12 deficiency E53.8 Assessment & Plan Assessment & Plan (1) Adult general medical exam: Code(s): Z00.00 - Encounter for general adult medical examination without abnormal findings Category: Medical (2) Diabetes type 2, controlled: Comment: diet controlled Code(s): E11.9 - Type 2 diabetes mellitus without complications Category: Medical Qualifiers: Diabetes mellitus complication status: without complication Diabetes mellitus prison insulin use: with health care facility administrator use Qualified Code(s): E11.9 - Type 2 diabetes mellitus without complications; Z79.4 - [facility] (current) use of insulin (3) Hypertension, essential: Code(s): I10 - Essential (primary) hypertension Category: Medical (4) Vitamin D deficiency: Code(s): E55.9 - Vitamin D deficiency, unspecified Category: Medical (5) Environmental allergies: Code(s): Z91.09 - Other allergy status, other than to drugs and biological substances Category: Medical (6) Lipid disorder: Code(s): E78.9 - Disorder of lipoprotein metabolism, unspecified Category: Medical (7) Anxiety, generalized: Code(s): F41.1 - Generalized anxiety disorder Category: Medical (8) B12 deficiency: Code(s): E53.8 - Deficiency of other specified B group vitamins Category: Medical Plan Physical exam - The patient is a 65-year-old female presenting with issues regarding weight management, persistent GERD, controlled hypertension, and type 2 diabetes mellitus management. - Reports gradual weight loss from 184.3 pounds in November to 169 pounds currently, through the use of semaglutide injections. - Blood pressure is well-controlled at 114/80 mmHg with current antihypertensive therapy of metoprolol 25 mg. - Reports taking montelukast 10 mg for allergies. - Taking omeprazole 20 mg for ongoing GERD, with no current symptoms of nausea, vomiting, or diarrhea since managing the condition. - Reviewed history of a urinary issue with unexplained hematuria; recent CT urogram was unremarkable. - Management of hyperlipidemia with rosuvastatin 10 mg. - Uses steroid creams for eczema. 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 - Discussed recent experience with potential food poisoning but no chronic GI symptoms noted beyond managed GERD. 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 - Actively working on weight loss and has seen a gradual reduction in weight with current medications. - Engages in regular walking for exercise. - Reports improved energy levels and a healthier diet. Health Maintenance - Recent OBGYN check with a negative mammogram. - Requires follow-up on blood work due to history of diabetes and elevated hemoglobin A1c of 6.2. - Discussed recent CT urogram that was essentially unremarkable. - overweight, continue semaglutide leading to gradual weight loss. - colonoscopy [address] Muniz [facility] Dr. 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 Diagnostic results - Labs: November CBC normal, Hemoglobin A1c elevated at 6.2. - Tests: Mammogram negative. - Diagnostics: CT Urogram on February 23 was unremarkable for causes of hematuria. Patient Instructions - Continue current medications as prescribed. - Follow a healthy diet and maintain regular exercise. - Monitor weight and aim for further reduction to 150 pounds as a goal. - Use cyclobenzaprine for muscle spasms as needed before bed. - Follow-up for blood work as previously ordered to monitor diabetes management. - Return for re-evaluation in three months. Orders: Orders Comprehensive [place]. 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, Z91.09 - Other allergy status, other than to drugs and biological substances Vitamin D 25-OH (D2 and D3) Today E11.69 - Type 2 diabetes mellitus with other specified complication, E11.9 - Type 2 diabetes mellitus without complications, E53.8 - Deficiency of other specified B group vitamins, E55.9 - Vitamin D deficiency, unspecified, E66.9 - Obesity, unspecified, E78.9 - Disorder of lipoprotein metabolism, unspecified, F33.42 - Major depressive disorder, recurrent, in full remission, F41.1 - Generalized anxiety disorder, I10 - Essential (primary) hypertension, Z00.01 - Encounter for general adult medical examination with abnormal findings, Z79.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, Z91.09 - Other allergy status, other than to drugs and biological substances Microalbumin, Random (w Creat) Today E11.69 - Type 2 diabetes mellitus with other specified complication, E11.9 - Type 2 diabetes mellitus without complications, E53.8 - Deficiency of other specified B group vitamins, E55.9 - Vitamin D deficiency, unspecified, E66.9 - Obesity, unspecified, E78.9 - Disorder of lipoprotein metabolism, unspecified, F33.42 - Major depressive disorder, recurrent, in full remission, F41.1 - Generalized anxiety disorder, I10 - Essential (primary) hypertension, Z00.01 - Encounter for general adult medical examination with abnormal findings, 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.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, Z91.09 - Other allergy status, other than to drugs and biological substances AMB Hemoglobin A1c Today E11.69 - Type 2 diabetes mellitus with other specified complication, E66.9 - Obesity, unspecified Hemoglobin A1c Today E11.69 - Type 2 diabetes mellitus with other specified complication, E11.9 - Type 2 diabetes mellitus without complications, E53.8 - Deficiency of other specified B group vitamins, E55.9 - Vitamin D deficiency, unspecified, E66.9 - Obesity, unspecified, E78.9 - Disorder of lipoprotein metabolism, unspecified, F33.42 - Major depressive disorder, recurrent, in full remission, F41.1 - Generalized anxiety disorder, I10 - Essential (primary) hypertension, Z00.01 - Encounter for general adult medical examination with abnormal findings, Z79.4 - [facility] (current) use of insulin, Z91.09 - Other allergy status, other than to drugs and biological substances Complete Blood Count Auto Diff Today E11.69 - Type 2 diabetes mellitus with other specified complication, E11.9 - Type 2 diabetes mellitus without comp lications, E53.8 - Deficiency of other specified B group vitamins, E55.9 - Vitamin D deficiency, unspecified, E66.9 - Obesity, unspecified, E78.9 - Disorder of lipoprotein metabolism, unspecified, F33.42 - Major depressive disorder, recurrent, in full remission, F41.1 - Generalized anxiety disorder, I10 - Essential (primary) hypertension, Z00.01 - Encounter for general adult medical examination with abnormal findings, Z79.4 - [facility] (current) use of insulin, Z91.09 - Other allergy status, other than to drugs and biological substances Lipid Panel Today E11.69 - Type 2 diabetes mellitus with other specified complication, E11.9 - Type 2 diabetes mellitus without complications, E53.8 - Deficiency of other specified B group vitamins, E55.9 - Vitamin D deficiency, u nspecified, E66.9 - Obesity, unspecified, E78.9 - Disorder of lipoprotein metabolism, unspecified, F33.42 - Major depressive disorder, recurrent, in full remission, F41.1 - Generalized anxiety disorder, I10 - Essential (primary) hypertension, Z00.01 - Encounter for general adult medical examination with abnormal findings, Z79.4 - [facility] (current) use of insulin, Z91.09 - Other allergy status, other than to drugs and biological substances Vitamin B12 Today E11.69 - Type 2 diabetes mellitus with other specified complication, E11.9 - Type 2 diabetes mellitus without complications, E53.8 - Deficiency of other specified B group vitamins, E55.9 - Vitamin D deficiency, unspecified, E66.9 - Obesity, unspecified, E78.9 - Disorder of lipoprotein metabolism, unspecified, F33.42 - Major depressive disorder, recurrent, in full remission, F41.1 - Generalized anxiety disorder, I10 - Essential (primary) hypertension, Z00.01 - Encounter for general adult medical examination with abnormal findings, Z79.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
--- OUTSIDE RECORDS SUMMARY | 2025-04-28 17:36 | XMS_ITS ---
Author Organization [facility] Address [address] [place] [id number] Care Team Providers Care Customer Sales Advisor Name Role Phone Ap BENNETT, Chato Primary Care Provider Boyd Mccormack Jr [phone] REASON FOR VISIT gerd, screening colon Problems Problem Type SNOMED Code ICD Code Onset Dates Problem Status W/U Status Risk Notes Problem Gastroesophageal reflux disease (K21.9) Active confirmed Encounters Encounter Location Date Provider Diagnosis [facility] [place] [address] [place] [id number] 05/15/2024 Boyd Muniz Jr Encounter for screening colonoscopy Z12.11 and Gastroesophageal reflux disease K21.9 Assessments Encounter Date Diagnosis (ICD Code) Assessment Notes Treatment Notes Treatment Clinical Notes Section Notes 05/15/2024 Encounter for screening colonoscopy (ICD-10 - Z12.11) 05/15/2024 Gastroesophageal reflux disease (ICD-10 - K21.9) Plan Of Treatment No Information Progress Notes * COLLEEN DEAN NDOB: [birth year] (65 yo F)Acc No.[id number]:05/15/2024 EGD and COL/MAC Patient:?COLLEEN DEAN Provider:?Boyd Muniz MD :[id number]???Age:64 Y???Sex:Female D ate:05/15/2024 Address:[address] [place], [place] [id number] Pcp:Chato De Souza MD Subjective: * Chief Complaints: * ???1. Gerd, screening colon. * Medical History:? Objective: * Vitals:? Assessment: * Assessment: 1.?Encounter for screening c olonoscopy - Z12.11 (Primary)???2.?Gastroesophageal reflux disease - K21.9??? Plan: * Treatment: * Procedure Codes:?72143 DIAGN OSTIC COLONOSCOPY, 08402 UPPER GI ENDOSCOPY, BIOPSY * * The named appointment provid er may or may not be the originator of this progress note, and it is not deemed complete until electronically signed by the appointment provider. Sign off status: Pending * Provider:?Boyd Muniz MD Date:?0 05/15/2024 Generated for Candi calderon/Russell/Jasmeetitting on:?04/28/2025 05:35 PM EDT
== END 2025-04-28 15:48 | disposition home or self-care (01) ==
LOC: HO.HMCC 15:15
PROVIDERS: PCP Internal Medicine; Visit Provider Internal Medicine
DX: Z00.00 Encounter for general adult medical examination without abnormal findings (principal); E11.69 Type 2 diabetes mellitus with other specified complication; E66.9 Obesity, unspecified; Z68.28 Body mass index [BMI] 28.0-28.9, adult; I10 Essential (primary) hypertension; Z91.09 Other allergy status, other than to drugs and biological substances; E55.9 Vitamin D deficiency, unspecified; E78.9 Disorder of lipoprotein metabolism, unspecified; F41.1 Generalized anxiety disorder; E53.8 Deficiency of other specified B group vitamins

== ENCOUNTER → 2025-04-28 15:15 | Outpatient (BNVA) | payer OTHER, SELFPAY | PROVIDERS: PCP Internal Medicine; Visit Provider Internal Medicine | DX: Z00.01 Encounter for general adult medical examination with abnormal findings (principal); K21.9 Gastro-esophageal reflux disease without esophagitis; I10 Essential (primary) hypertension; E11.9 Type 2 diabetes mellitus without complications; E55.9 Vitamin D deficiency, unspecified; E78.9 Disorder of lipoprotein metabolism, unspecified; F41.1 Generalized anxiety disorder; E53.8 Deficiency of other specified B group vitamins; Z79.4 Long term (current) use of insulin; Z91.09 Other allergy status, other than to drugs and biological substances; Z79.899 Other long term (current) drug therapy | CPT/HCPCS: 83036 ==

== ENCOUNTER 2025-05-07 10:07 | Outpatient (AMB) | payer OTHER, SELFPAY ==
--- OUTSIDE RECORDS SUMMARY | 2024-05-15 06:50 | XMS_ITS ---
Author Organization [facility] Address [address] [place] [phone] Care Team Providers Care Disc Sander Name Role Phone Ap BENNETT, Chato Primary Care Provider Boyd Mccormack Jr [phone] REASON FOR VISIT gerd, screening colon Problems Problem Type SNOMED Code ICD Code Onset Dates Problem Status W/U Status Risk Notes Problem Gastroesophageal reflux disease (K21.9) Active confirmed Encounters Encounter Location Date Provider Diagnosis [facility] [place] Outpatient [address] [place] [phone] 05/15/2024 Boyd Muniz Jr Encounter for screening colonoscopy Z12.11 and Gastroesophageal reflux disease K21.9 Assessments Encounter Date Diagnosis (ICD Code) Assessment Notes Treatment Notes Treatment Clinical Notes Section Notes 05/15/2024 Encounter for screening colonoscopy (ICD-10 - Z12.11) 05/15/2024 Gastroesophageal reflux disease (ICD-10 - K21.9) Plan Of Treatment No Information Progress Notes * COLLEEN DEAN NDOB: [birth year] (65 yo F)Acc No.[id number]:05/15/2024 EGD and COL/MAC Patient: JULIETA LAMBERTAUGUSTINE Snyder Provider: Wanda Muniz MD :1960 A ge:64 Y S ex:Female Date:05/15/2024 Address:[address] [place] [address] Pcp:Chato De Souza MD Subjective: * Chief Complaints: * 1 . Gerd, screening colon. * Medical History: Objective: * Vitals: Assessment: * Assessment: 1. E ncounter for screening colonoscopy - Z12.11 (Primary) 2 . G astroesophageal reflux disease - K21.9 Plan: * Treatment: * Procedure Codes: 4 5378 DIAGNOSTIC COLONOSCOPY, 70865 UPPER GI ENDOSCOPY, BIOPSY * * The named appointment provid er may or may not be the originator of this progress note, and it is not deemed complete until electronically signed by the appointment provider. Sign off status: Pending * Provider: Wanda Muniz MD Date: 0 05/15/2024 Generated for Candi calderon/Russell/Almasransmitting on: 0 05/07/2025 10:24 AM EDT
--- NOTE | 2025-05-07 10:38 | A.OFFVIS_ITS ---
Intake Visit Reasons: cysto/labs/culture Intake Note: patient presents today for follow up visit for cystoscopy for microscopic hematuria Urology Medication:none Blood Thinner:None Antibiotic Allergies:None Engineering Supplies Sales Required: No Allergies Influenza Virus Vaccines Allergy (Verified 05/28/25 08:09) Angioedema metformin Adverse Reaction (Intermediate, Verified 05/28/25 08:09) GI upset HPI Comments Details: 05/07/25--Here for office cystoscopy. h/o recurrent UTI's Results: Cystoscopy findings: mild erythema c/w cystitis, no suspicious bladder lesions visualized. Urine cytology - 03/23/25--Negative for malignant cells CT Urogram--03/25/25--Urinary tract WNL Plan - FU Telehealth- UTI symptoms, 12 weeks 03/23/25--Ca is a 65-year-old who who is here for evaluation for microscopic hematuria. The patient states that she gets UTI's. Denies history of nicotine use. In review of her chart she had a positive urine culture October 2024. She denies gross hematuria. I have discussed that recurrent UTIs can be associated with sexual activity and there are associations related to postmenopausal estrogen changes. Discussed further evaluation with CT urogram, urine cytology and will send a surveillance urine culture. Follow-up office cystoscopy. [facility] Medical History (Updated 07/18/25 @ 12:18 by José Faust MD) Palpitations Lichen sclerosus Depression Anxiety Elevated alkaline phosphatase level Dyslipidemia Vitamin D deficiency Obesity (BMI 30-39.9) Diabetes type 2, controlled Surgical History (Updated 06/22/25 @ 17:27 by Amrita Neal MD) History of angiography History of sinus surgery History of colonoscopy History of appendectomy Family History Father Prostate cancer Mother Diabetes mellitus Dementia HTN (hypertension) Brother No problems noted. Brother No problems noted. Sister No problems noted. Daughter No problems noted. 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 Information consent for procedure given to the patient. Discussed technical aspects, risks, benefits and alternatives in full. Addressed all of the patient's questions and concerns regarding the procedure. The patient demonstrated knowledge and understanding. They wish to proceed with this procedure. Preparation The patient was prepped in the usual manner. A head piece assembler was present and in the room. Genitalia was prepped with betadine solution in a sterile manner. Lidocaine Jelly 2% was placed into the urethra and 16Fr flexible Olympus cystoscope was inserted into the meatus after adequate lubrication. Procedure Time out per protocol performed. Speculum used as indicated for adequate visualization of urethra, the flexible cystoscope is passed transurethrally: The bladder was inspected in its entirety with utilization retroflexion displaying: Tumor(s): no suspicious bladder lesions visualized Trabeculation: NA Mucosal Erthema: Mild Orifices: normal shape and position Urethra: normal Cystoscopy findings: WNL, no suspicious bladder lesions visualized [id number] DISPOSABLE SCOPE URO-G FLEXIBLE SCOPE Procedure code (CPT) selection complete Office Meds lidocaine HCl 2 % mucosal jelly in applicator Performing Provider: José Faust MD Performing Location[facility] [employer] [facility] [employer] [facility] [place] [facility] Administered by: Max Ragland LPN on 05/07/25 11:25 Dose Route Admin Location Dispensed Lot Number Expiration Date [facility] Field Gauger 10 mL intra-urethral 20 mL ciprofloxacin HCl 500 mg tablet Performing Provider: José Faust MD Performing Location[facility] [place] [facility] Administered by: Max Ragland LPN on 05/07/25 11:25 Dose Route Admin Location Dispensed Lot Number Expiration Date [place] Field Gauger 500 mg PO 1 tab phenazopyridine 200 mg tablet Performing Provider: José Faust MD Performing Location: [facility] [place] [facility] Administered by: Max Ragland LPN on 05/07/25 11:25 Dose Route Admin Location Dispensed Lot Number Expiration Date [place] Field Gauger 200 mg PO 1 tab Results AMB Urinalysis, Automated UA Leukoctes 125 Makenzie/uL Last Edit by Melissa Alonzo MA on 05/07/25 13:50 UA Nitrite Negative Last Edit by Melissa Colon, MA on 05/07/25 13:50 UA Urobilinogen 0.2 mg/dL Last Edit by Melissa Colon, MA on 05/07/25 13:50 UA Protein 0 mg/dL Last Edit by Melissa Colon, MA on 05/07/25 13:50 UA pH 6.5 Last Edit by Melissa Colon, MA on 05/07/25 13:50 UA Blood 0 Jeevan/uL Last Edit by Melissa Colon, MA on 05/07/25 13:50 UA Specific Chancellor 1.010 Last Edit by Melissa Colon, MA on 05/07/25 13:50 UA Ketone Negative Last Edit by Melissa Colon, MA on 05/07/25 13:50 UA Bilirubin 0 mg/dL Last Edit by Melissa Colon, MA on 05/07/25 13:50 UA Glucose 0 mg/dL Last Edit by Melissa Colon, MA on 05/07/25 13:50 Results Reviewed Results Reviewed: Laboratory Last Values Urine pH (Auto) 6.5 05/07/25 13:30 Specific Chancellor (Auto) 1.010 05/07/25 13:30 Urine Protein (Auto) 0 mg/dL 05/07/25 13:30 Glucose (UA)(Auto) 0 mg/dL 05/07/25 13:30 Urine Ketones (Auto) Negative 05/07/25 13:30 Urine Blood (Auto) 0 Jeevan/uL 05/07/25 13:30 Urine Nitrite (Auto) Negative 05/07/25 13:30 Urine Bilirubin (Auto) 0 mg/dL 05/07/25 13:30 Urine Urobilinogen (Auto) 0.2 mg/dL 05/07/25 13:30 Leukocyte Esterase (Auto) 125 Makenzie/uL 05/07/25 13:30 Date of Service: 03/25/25 EXAMINATION: CT ABDOMEN PELVIS UROGRAPHY WITHOUT THEN WITH IV CONTRAST HISTORY: R31.9 - Hematuria, unspecified COMPARISON: None. TECHNIQUE: CT scan of the abdomen and pelvis was performed before and after the intravenous administration of 85 mL Omnipaque 350. Postcontrast images were obtained using a split bolus technique. Coronal and sagittal reformatted images were generated and reviewed. Oral contrast material was not administered per department protocol. This CT exam was performed with one or more of the following dose reduction techniques: automated exposure control, adjustment of the mA and/or kV according to patient size, use of iterative reconstruction technique. DLP: 936 mGy-cm ABDOMEN: There is respiratory motion artifact. LOWER CHEST: The visualized lung bases are clear. There is no pleural effusion. CARDIOVASCULATURE: The heart is normal in size. There is no pericardial effusion. LIVER: The liver is normal in size and contour, but demonstrates diffusely decreased attenuation, consistent with steatosis. No liver mass is identified. The hepatic and portal veins are patent. GALLBLADDER / BILE DUCTS: The gallbladder is unremarkable. There is no intra or extrahepatic biliary ductal dilatation. SPLEEN: The spleen is normal in size. No focal splenic lesion is identified. PANCREAS: The pancreas is unremarkable in appearance. ADRENAL GLANDS: Within normal limits. KIDNEYS/RETROPERITONEUM: No renal or ureteral calculi are identified. There is no hydronephrosis or hydroureter. A tiny subcentimeter hypodensity in the interpolar region of the left kidney is too small to accurately characterize. The intrarenal collecting systems are unremarkable in appearance. No ureteral filling defects are identified. LYMPH NODES: No abdominal or pelvic lymphadenopathy. VASCULATURE: The abdominal aorta is normal in caliber. MESENTERY/PERITONEUM: No free fluid. No masses. There is no free intraperitoneal gas. STOMACH: The stomach is unremarkable. SMALL BOWEL: The small bowel is normal in caliber. COLON: The colon is unremarkable. APPENDIX: The appendix is surgically absent. URINARY BLADDER/PELVIC ORGANS: The urinary bladder is unremarkable. The uterus is unremarkable. BONES / SOFT TISSUES: No suspicious bony or soft tissue abnormalities. IMPRESSION: 1. Essentially unremarkable CT urogram. No cause for hematuria is identified. Assessment & Plan Assessment & Plan (1) Recurrent UTI: Code(s): N39.0 - Urinary tract infection, site not specified Category: Medical (2) Microscopic hematuria: Code(s): R31.29 - Other microscopic hematuria Category: Medical (3) Cystitis: Code(s): N30.90 - Cystitis, unspecified without hematuria Category: Medical Plan Plan - FU Telehealth- UTI symptoms, 12 weeks Orders: Orders AMB Urinalysis Automated 05/07/25 Z13.9 - Encounter for screening, unspecified AMB Cystoscopy 05/07/25 R31.9 - Hematuria, unspecified, N30.01 - Acute cystitis with hematuria, N39.0 - Urinary tract infection, site not specified Patient Instructions: The patient had an opportunity to ask questions regarding treatment plan. The patient expressed understanding and agreement with the above treatment plan. The patient is aware they should contact our office by phone for worsening of their current condition or the appearance of new symptoms. Compliance is encouraged with any medications and followup testing that is ordered. It is a privilege to be allowed the opportunity to participate in the urologic care of your patient. If you have any questions or concerns regarding treatment for the above conditions please do not hesitate to contact me. The office telephone contact is [phone]. This note is constructed in part using voice recognition software. While every effort has been made to ensure accuracy lens molding equipment operator errors may have been included. Yours sincerely, José Faust MD Scribe Plan - Not visible on output: Patient was informed and verbally consented to the use of an ambient scribe for clinic note documentation during this visit. Coding Level of Care Code Procedure Only Diagnoses Recurrent UTI N39.0 Microscopic hematuria R31.29 Cystitis N30.90 CPT Codes Cystoscopy - CPT: [id number] ([id number])
== END 2025-05-07 12:14 | disposition home or self-care (01) ==
LOC: HO.HUSH 10:08
PROVIDERS: PCP Internal Medicine; Visit Provider Urology
DX: R31.9 Hematuria, unspecified (principal); N30.01 Acute cystitis with hematuria; N39.0 Urinary tract infection, site not specified; Z13.9 Encounter for screening, unspecified
CPT/HCPCS: 52000

== ENCOUNTER → 2025-05-07 10:07 | Outpatient (BNVA) | payer OTHER, SELFPAY | PROVIDERS: PCP Internal Medicine; Visit Provider Urology | DX: N30.01 Acute cystitis with hematuria (principal) | CPT/HCPCS: 52000; 81003 ==

== ENCOUNTER 2025-05-20 11:17 | Outpatient (AMB) | payer OTHER, SELFPAY ==
--- OUTSIDE RECORDS SUMMARY | 2024-05-15 06:50 | XMS_ITS ---
Author Organization [facility] Address [address] [place] [phone] Care Team Providers Care Individual Pension Adviser Name Role Phone Ap BENNETT, Chato Primary Care Provider Boyd Mccormack Jr REASON FOR VISIT gerd, screening colon Problems Problem Type SNOMED Code ICD Code Onset Dates Problem Status W/U Status Risk Notes Problem Gastroesophageal reflux disease (K21.9) Active confirmed Encounters Encounter Location Date Provider Diagnosis [facility] Outpatient [address] [place] [phone] 05/15/2024 Boyd Muniz Jr Encounter for screening colonoscopy Z12.11 and Gastroesophageal reflux disease K21.9 Assessments Encounter Date Diagnosis (ICD Code) Assessment Notes Treatment Notes Treatment Clinical Notes Section Notes 05/15/2024 Encounter for screening colonoscopy (ICD-10 - Z12.11) 05/15/2024 Gastroesophageal reflux disease (ICD-10 - K21.9) Plan Of Treatment No Information Progress Notes * COLLEEN DEAN NDOB: [birth year] (65 yo F)Acc No.[id number]:05/15/2024 EGD and COL/MAC Patient: JULIETA LAMBERTAUGUSTINE Snyder Provider: Wanda Muniz MD :1960 A ge:64 Y S ex:Female Date:05/15/2024 Address:[address] [place] [place] [address] Pcp:Chato De Souza MD Subjective: * Chief Complaints: * 1 . Gerd, screening colon. * Medical History: Objective: * Vitals: Assessment: * Assessment: 1. E ncounter for screening colonoscopy - Z12.11 (Primary) 2 . G astroesophageal reflux disease - K21.9 Plan: * Treatment: * Procedure Codes: 4 5378 DIAGNOSTIC COLONOSCOPY, 57645 UPPER GI ENDOSCOPY, BIOPSY * * The named appointment provid er may or may not be the originator of this progress note, and it is not deemed complete until electronically signed by the appointment provider. Sign off status: Pending * Provider: Wanda Muniz MD Date: 0 05/15/2024 Generated for Candi calderon/Russell/Almasransmitting on: 0 05/20/2025 12:05 PM EDT
[2025-05-20 11:18] VITALS: BP 120/74; PULSE 92; O2SAT 95; BMI 28.1
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
--- OUTSIDE RECORDS SUMMARY | 2025-05-20 12:06 | XMS_ITS | Patient Health Record ---
[facility] Address [address] [place] [address] Care Team Providers Care Modeling Agent Name Role Phone Serjio Hearn MD Primary Care Provider Ethan Martinez Unavailable [phone] Reason For Referral No Information Medications Medication SIG (Take, Route, Fr equency, Duration) Notes Start Date End Date Status Metoprolol Succinate Active Social History Tobacco Use: Social History Observation Description Date Details (start date - stop date) Never Smoker NA - NA Tobacco Use/Smoking Question Answer Notes Are you a: nonsmoker Additional Findings: Tobacco Non-User Current no n-smoker Alcohol Screen Question Answer Notes Did you have a drink containing alcohol in the p ast year? Yes Points 0 Interpretation Negative Tobacco use other than smoking: Question Answer Notes Are you an other tobacco user? No Problems Problem Type SNOMED Code ICD Code Onset Dates Problem Status W/U Status Risk Notes Problem Bursitis (44374549) Bursitis (727.3) Active confirmed Problem Metatarsalgia (92700848) Metatarsalgia (726.70) Active confirmed Problem Metatarsalgia (finding) (88371472) Plantarflexed Metatarsal (838.04) Active confirmed Plan Of Treatment No Information Insurance Providers Payer Name Payer Address Payer Phone Subscriber Number Group Number Insured Name Patient Relationship to Insured Coverage Start Date Coverage End Date Blue Benefits [address] [address] [place] [address] [id number] Umer Ca Self - patient is the insured Medical (General) History Medical History History ICD Code Sinus conditions Heart condition Surgical History Surgery Date(Month/Year) appendectomy
== END 2025-05-20 12:29 | disposition home or self-care (01) ==
PROVIDERS: PCP Internal Medicine; Visit Provider Nurse Practitioner Family
DX: M62.838 Other muscle spasm (principal); F07.81 Postconcussional syndrome; G44.309 Post-traumatic headache, unspecified, not intractable
CPT/HCPCS: 99214

== ENCOUNTER 2025-05-28 08:06 | Outpatient (AMB) | payer OTHER, SELFPAY ==
--- OUTSIDE RECORDS SUMMARY | 2024-05-15 06:50 | XMS_ITS ---
Author Organization [facility] Address [address] [place] [phone] Care Team Providers Care Glass Technician Name Role Phone Ap BENNETT, Chato Primary Care Provider Boyd Mccormack Jr REASON FOR VISIT gerd, screening colon Problems Problem Type SNOMED Code ICD Code Onset Dates Problem Status W/U Status Risk Notes Problem Gastroesophageal reflux disease (K21.9) Active confirmed Encounters Encounter Location Date Provider Diagnosis [facility] [place] Out[place] [address] [place] [phone] 05/15/2024 Boyd Muniz Jr Encounter for screening colonoscopy Z12.11 and Gastroesophageal reflux disease K21.9 Assessments Encounter Date Diagnosis (ICD Code) Assessment Notes Treatment Notes Treatment Clinical Notes Section Notes 05/15/2024 Encounter for screening colonoscopy (ICD-10 - Z12.11) 05/15/2024 Gastroesophageal reflux disease (ICD-10 - K21.9) Plan Of Treatment No Information Progress Notes * COLLEEN DEAN NDOB: [birth year] (65 yo F)Acc No.[id number]:05/15/2024 EGD and COL/MAC Patient: JULIETA LAMBERTAUGUSTINE Snyder Provider: Wanda Muniz MD :1960 A ge:64 Y S ex:Female Date:05/15/2024 Address:[address] [place] [address] Pcp:Chtao De Souza MD Subjective: * Chief Complaints: * 1 . Gerd, screening colon. * Medical History: Objective: * Vitals: Assessment: * Assessment: 1. E ncounter for screening colonoscopy - Z12.11 (Primary) 2 . G astroesophageal reflux disease - K21.9 Plan: * Treatment: * Procedure Codes: 4 5378 DIAGNOSTIC COLONOSCOPY, 38619 UPPER GI ENDOSCOPY, BIOPSY * * The named appointment provid er may or may not be the originator of this progress note, and it is not deemed complete until electronically signed by the appointment provider. Sign off status: Pending * Provider: Wanda Muniz MD Date: 0 05/15/2024 Generated for Candi calderon/Russell/Almasransmitting on: 0 05/28/2025 08:08 AM EDT
--- NOTE | 2025-05-28 08:08 | A.OFFPC_ITS ---
Vital Signs 05/28/25 08:13 Height 5 ft 5 in Weight 167 lb BMI 27.8 BP 142/82 H Blood Pressure Location Lt brachial Position Sitting Respiration 16 Pulse 93 Pulse Source Pulse Oximeter Pulse Oximetry (%) 96 Oxygen Delivery Method Room Air Intake Visit Reasons: Ear pain Intake Note: pt coming in for ear pain Radiator Specialist Required: No Allergies Influenza Virus Vaccines Allergy (Verified 05/28/25 08:09) Angioedema metformin Adverse Reaction (Intermediate, Verified 05/28/25 08:09) GI upset Medication List - Last Reconciled 05/28/25 by Chato De Souza MD cholecalciferol (vitamin D3) 50 mcg PO DAILY 30 days clobetasol 0.05% 1 appl topical BEDTIME clotrimazole-betamethasone 1-0.05 % 1 appl topical ONCE 30 days cyanocobalamin (vitamin B-12) 1,000 mcg PO DAILY 90 days cyclobenzaprine 5 - 10 mg (1 - 2 x 5 mg) PO BEDTIME 30 days metoprolol succinate ER (Toprol XL) 25 mg PO DAILY montelukast 10 mg PO DAILY 90 days omeprazole 20 mg PO DAILY rosuvastatin 10 mg PO BEDTIME semaglutide 1 mg (0.75 mL) subcut QWEEK 90 days Tobacco use date assessed: 04/28/25 Dental Screening Dental Screen Date: 04/28/25 HPI Ear pain HPI Details History - The patient is a 65-year-old female pr esenting with concerns of a potential sinus infection. - Symptoms began on Saturday afternoon, approximately two days ago, after working outside in the garden. - Initially, she was asymptomatic on Sat morning, but developed a severe headache, facial pain, and teeth discomfort in the afternoon. - Patient reports constant headaches mateusz t radiate around the eyes, along with bilateral cheek, mouth, and eye pain. - She experienced significant sneezing i mmediately following the onset of symptoms, which has since subsided. She also had clear nasal discharge - Describes the headache and facial pain as pounding and severe in nature. - Although the patient reports taking si nus medication, there was no significant improvement in symptoms. - There is tenderness throughout her hea d and face, with a sensation of congestion, though without any nasal discharge despite feeling blocked. - Recent exposure to outdoor allergens, potentially pollen and dust, is noted from gardening activities. Medical History: - History of migraines, currently experi encing symptoms. Problem List - Allergic Rhinitis - Migraine Patient Instructions - Use prednisone to reduce inflammation. - Continue using Flonase and saline for nasal spray. - Take Advil as needed for pain relief, as tolerated. - Wear a mask when gardening to reduce a llergen exposure. - Monitor symptoms over the weekend and provide an update on Saturday. Review of Systems - General: No fever - Neurological: No headaches no dizziness - Ear nose throat: No sore throat no hearing difficulty no ear pain - Cardiovascular: No syncope, no chest pain, no palpitations - Gastrointestinal: No nausea vomiting or diarrhea Physical Exam General: No acute distress HEENT: Tenderness in the head and cheeks, no nasal discharge, no ear inflammation or signs of infection Neck: Supple Respiratory system: Able to talk in full sentences, no audible wheeze Cardiovascular: S1-S2 regular in rate and rhythm Gastrointestinal: No pain Extremities: No new findings MEDICAL SOCIOLOGIST: Alert awake oriented x3 motor sensory intact Skin: Normal turgor [facility] Medical History Palpitations Lichen sclerosus Depression Anxiety Elevated alkaline phosphatase level Dyslipidemia Vitamin D deficiency Obesity (BMI 30-39.9) Diabetes type 2, controlled Surgical History History of angiography History of sinus surgery History of colonoscopy History of appendectomy Family History Father Prostate cancer Mother Diabetes mellitus Dementia HTN (hypertension) Brother No problems noted. Brother No problems noted. Sister No problems noted. Daughter No problems noted. Sister Diabetes mellitus HTN (hypertension) Other Mental health disorder Social History Housing: House Alcohol intake: never Patient Tobacco Use Status: Never used Tobacco e-Cigarette/Vaping Use: Never Used Second Hand Smoke Exposure: No Current occupational status: employed Current occupation: [employer] Sexual orientation: Straight/Heterosexual Gender identity: Female Cognitive needs: No Hearing needs: No Vision needs: Yes Female Reproductive History Menstrual Age of Menarche: 14 Questionnaire Thrive Questionnaire Date Thrive assessed: 12/11/24 AIDA-7 AMB Questionnaire AIDA-7 Date AIDA - 7 assessed: 12/11/24 Source: Developed by Drs. Beto Griffin, Ltaonia Kimball, Dann Spaulding and colleagues, with an educational venancio from [employer]. Physical exam (Primary Care) Vital Signs: Last Vital Signs Pulse 93 05/28/25 08:13 Resp 16 05/28/25 08:13 BP 142/82 H 05/28/25 08:13 Pulse Ox 96 05/28/25 08:13 Oxygen Delivery Method Room Air 05/28/25 08:13 BMI result Body Mass Index 27.8 Tobacco/Smoking Status: Tobacco use Status Tobacco use date assessed 04/28/25 05/28/25 08:14 Patient Tobacco Use Status Never used Tobacco 05/28/25 08:14 e-Cigarette/Vaping Use Never Used 05/28/25 08:14 Thrive Assessment: Date of Thrive Assessment Date Thrive assessed 12/11/24 05/28/25 08:14 Coding Level of Care Code Est Pt Level 3 (54289) Diagnoses Allergic sinusitis J30.9 Assessment & Plan Assessment & Plan (1) Allergic sinusitis: Code(s): J30.9 - Allergic rhinitis, unspecified Category: Medical Plan History - The patient is a 65-year-old female presenting with concerns of a potential sinus infection. - Symptoms began on Saturday afternoon, approximately two days ago, after working outside in the garden. - Initially, she was asymptomatic on Saturday morning, but developed a severe headache, facial pain, and teeth discomfort in the afternoon. - Patient reports constant headaches that radiate around the eyes, along with bilateral cheek, mouth, and eye pain. - She experienced significant sneezing immediately following the onset of symptoms, which has since subsided. She also had clear nasal discharge - Describes the headache and facial pain as pounding and severe in nature. - Although the patient reports taking sinus medication, there was no significant improvement in symptoms. - There is tenderness throughout her head and face, with a sensation of congestion, though without any nasal discharge despite feeling blocked. - Recent exposure to outdoor allergens, potentially pollen and dust, is noted from gardening activities. Medical History: - History of migraines, currently experiencing symptoms. Problem List - Allergic Rhinitis - Migraine Patient Instructions - Use prednisone to reduce inflammation. - Continue using Flonase and saline for nasal spray. - Take Advil as needed for pain relief, as tolerated. - Wear a mask when gardening to reduce allergen exposure. - Monitor symptoms over the weekend and provide an update on Saturday. Medications: New prednisone 10 mg PO DAILY 5 tabs 0RF 5 days
--- OUTSIDE RECORDS SUMMARY | 2025-05-28 08:08 | XMS_ITS | Patient Health Record ---
[facility] Address [address] [place] [address] Care Team Providers Care Stereo Compiler Name Role Phone Serjio Hearn MD Primary Care Provider Ethan Martinez Unavailable [phone] Reason For Referral No Information Medications Medication [...] Status W/U Status Risk Notes Problem Bursitis (99179224) Bursitis (727.3) Active confirmed Problem Metatarsalgia (72645408) Metatarsalgia (726.70) Active confirmed Problem Metatarsalgia (finding) (64304785) Plantarflexed Metatarsal (838.04) Active confirmed Plan Of Treatment No Information Insurance Providers Payer Name Payer Address Payer Phone Subscriber Number Group Number Insured Name Patient Relationship to Insured Coverage Start Date Coverage End Date Blue Benefits [address] [address] [place] [address] [phone] [id number] [phone] [id number] Umer Ca Self - patient is the insured Medical (General) History Medical History History ICD Code Sinus conditions Heart condition Surgical History Surgery Date(Month/Year) appendectomy
[2025-05-28 08:13] VITALS: BP 142/82; PULSE 93; RESP 16; O2SAT 96; BMI 27.8
== END 2025-05-28 08:35 | disposition home or self-care (01) ==
LOC: HO.HMCC 08:06
PROVIDERS: PCP Internal Medicine; Visit Provider Internal Medicine
DX: J30.9 Allergic rhinitis, unspecified (principal)

== ENCOUNTER 2025-07-07 16:00 | Outpatient (RCR) | payer OTHER, SELFPAY ==
--- NOTE | 2025-06-14 15:55 | MHC.PT.EP ---
[facility] [place] [facility] [place] [facility] [place] [facility] [address] Cory Herrera [address] [phone] F: [phone] F: [phone] F: [phone] F: [phone] Physical Therapy Plan of Care Date of Evaluation: 06/14/25 Date of Surgery: N/A Diagnosis: cervical paraspinal muscle spasm *migraine without aura (RL) Assessment: pt is a 65 y/o female presenting to physical therapy w/ referring diagnosis of cervical paraspinal muscle spasm *migraine without aura. Impairments include pain, decreased range of motion, decreased strength, impaired functional mobility, impaired postural awareness, and altered ambulation mechanics. pt is a good candidate for skilled PT due to age, potential remediation of impairments, typical disease/condition progression and prognosis, comorbidities, and motivation. pt would benefit from skilled PT intervention to provide a tailored strengthening and stretching exercise program, functional training, gait training, postural re-training, neuromuscular re-education, modalities as needed for pain, equipment safety demonstration. Frequency and Duration: The patient will be seen 2x/wk for 4 wks Short Term Goals: pt will be I w/ HEP to promote self-management of condition. pt will demo proper sitting posture w/ lumbar roll to promote neutral spine w/ seated ADLs. 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 pt will report <1x/wk ORDAZ frequency. Treatment Plan: Modalities to reduce pain, spasms and effusion. Manual therapy to restore motion and function. Therapeutic exercise to improve strength and flexibility. Neuromuscular re-education for posture and balance. Therapeutic activities to return to functional activities of daily living. Electronically signed by: Nancy Giron PT, DPT Please sign and return to therapist. Thank you for your referral.
--- NOTE | 2025-08-10 08:48 | MHC.PT.DC ---
[facility] [place] Office [place] [facility] [place] Office [address] Cory Herrera 140 [facility] [phone] F: [phone] F: [phone] F: [phone] F: [phone] Physical Therapy Discharge Report Diagnosis: cervical paraspinal muscle spasm *migraine without aura (RL) Date of Surgery: N/A Date of Evaluation: 06/14/25 Date of Discharge: 08/10/25 Treatments to Date: 4 Cancellations to Date: 1 No Shows to Date: 0 Discharge Status: Visit Non-compliance Discharge Summary: The patient has not had any attended visits in the past 30 days. She had only attended approximately half of the suggested visits in that time. She is discharged from this plan of care. Electronically signed by: Nancy Giron PT, DPT Please sign and return to therapist. Thank you for your referral.
== END 2025-08-10 08:49 | disposition home or self-care (01) ==
LOC: HO.PT 16:00
PROVIDERS: PCP Internal Medicine; Visit Provider Nurse Practitioner Family
DX: M62.838 Other muscle spasm (principal); G43.009 Migraine without aura, not intractable, without status migrainosus
CPT/HCPCS: 97110; 97112; 97140; 97161

== ENCOUNTER 2025-07-24 08:49 | Outpatient (REF) | payer OTHER, SELFPAY ==
--- OUTSIDE RECORDS SUMMARY | 2024-05-15 06:50 | XMS_ITS ---
Author Organization [facility] Address [address] [place] [phone] Care Team Providers Care Signs And Displays Sales Representative Name Role Phone Ap BENNETT, Chato Primary Care Provider Boyd Mccormack Jr REASON FOR VISIT gerd, screening colon Problems Problem Type SNOMED Code ICD Code Onset Dates Problem Status W/U Status Risk Notes Problem Gastroesophageal reflux disease (658222957) Gastroesophageal reflux disease (K21.9) Active confirmed Encounters Encounter Location Date Provider Diagnosis [facility] [place] [address] [place] [phone] 05/15/2024 Boyd Muniz Jr Encounter for screening colonoscopy Z12.11 and Gastroesophageal reflux disease K21.9 Assessments Encounter Date Diagnosis (ICD Code) Assessment Notes Treatment Notes Treatment Clinical Notes Section Notes 05/15/2024 Encounter for screening colonoscopy (ICD-10 - Z12.11) 05/15/2024 Gastroesophageal reflux disease (ICD-10 - K21.9) Plan Of Treatment No Information Progress Notes * COLLEEN DEAN NDOB: [birth year] (65 yo F)Acc No.[id number]:05/15/2024 EGD and COL/MAC Patient: JULIETA LAMBERTAUGUSTINE Snyder Provider: Wanda Muniz MD :1960 A ge:64 Y S ex:Female Date:05/15/2024 Address:[address] [place] [address] Pcp:Chato De Souza MD Subjective: * Chief Complaints: * 1 . Gerd, screening colon. * Medical History: Objective: * Vitals: Assessment: * Assessment: 1. E ncounter for screening colonoscopy - Z12.11 (Primary) 2 . G astroesophageal reflux disease - K21.9 Plan: * Treatment: * Procedure Codes: 4 5378 DIAGNOSTIC COLONOSCOPY, 59519 UPPER GI ENDOSCOPY, BIOPSY * * The named appointment provid er may or may not be the originator of this progress note, and it is not deemed complete until electronically signed by the appointment provider. Sign off status: Pending * Provider: Wanda Muniz MD Date: 0 05/15/2024 Generated for Candi calderon/Russell/Rosa Mariasmitting on: 0 07/24/2025 08:53 AM EDT
--- OUTSIDE RECORDS SUMMARY | 2025-07-24 08:53 | XMS_ITS | Patient Health Record ---
[facility] Address [address] [place] [address] Care Team Providers Care Fence Builder Name Role Phone Serjio Hearn MD Primary Care Provider Ethan Martinez Unavailable [phone] Reason For Referral No Information Medications Medication [...] Status W/U Status Risk Notes Problem Bursitis (11952123) Bursitis (727.3) Active confirmed Problem Metatarsalgia (94394087) Metatarsalgia (726.70) Active confirmed Problem Metatarsalgia (finding) (58030711) Plantarflexed Metatarsal (838.04) Active confirmed Plan Of Treatment No Information Insurance Providers Payer Name Payer Address Payer Phone Subscriber Number Group Number Insured Name Patient Relationship to Insured Coverage Start Date Coverage End Date Blue Benefits [address] [address] [place] [address] [id number] Umer Ca Self - patient is the insured Medical (General) History Medical History History ICD Code Sinus conditions Heart condition Surgical History Surgery Date(Month/Year) appendectomy
--- OUTSIDE RECORDS SUMMARY | 2025-07-24 08:54 | XMS_ITS | Patient Health Record ---
Author Organization [facility] Address [address] [place] [address] Care Team Providers Care Zoo Keeper Name Role Phone Ap BENNETT, [facility] Primary Care Provider Boyd Mccormack Jr Unavailable Allergies No Known Allergies Reason For Referral No Information Medications Medication [...] Problem Status W/U Status Risk Notes Problem 200819319 Colon cancer screening (Z12.11) Active confirmed Problem Gastroesophageal reflux disease (750488994) Gastroesophageal reflux disease (K21.9) Active confirmed Problem 858792795 Gastroesophageal reflux disease, unspecified whether esophagitis present (K21.9) Active confirmed Plan Of Treatment Pending Test Test Name Order Date HEMOGLOBIN A1C (GLYCOHEMOGLOBIN) 024 LIVER PROFILE 04/09/2024 LIPASE 04/09/2024 CBC w/o DIFF 04/09/2024 Future Test Test Name Order Date UPPER GI ENDOSCOPY 04/09/2024 COLONOSCOPY 04/09/2024 Insurance Providers Payer Name Payer Address Payer Phone Subscriber Number Group Number Insured Name Patient Relationship to Insured Coverage Start Date Coverage End Date [employer] [place] [address] [address] [place] [address] [id number] COLLEEN DEAN Self - patient is the insured Medical (General) History Medical History History ICD Code Prediabetes Elevated alkaline phosphatase Elevated BMI Vitamin D deficiency Surgical History Surgery Date(Month/Year)
[2025-07-24 11:09] LABS: Hematocrit 41.0 % (37.0-47.0); Hemoglobin 13.6 g/dl (12.0-16.0); Imm Gran Pct Auto 0.3 % (0.0-0.4); MANUAL DIFF FLAG NO; Mean Corpuscular HGB Conc 33.2 g/dl (31.0-35.0); Mean Corpuscular Hemoglobin 29.3 pg (27.0-33.0); Mean Corpuscular Volume 88.4 fL (80.0-98.0); Platelet Count 441 X10*3/uL (160-400); Red Blood Count 4.64 X10*6/uL (4.20-5.50); White Blood Count 7.1 X10*3/uL (4.8-10.8)
[2025-07-24 11:10] LABS: Imm Gran Abs Auto 0.02 X10*3/uL (0.00-0.03); Lymphocytes Absolute Auto 2.7 X10*3/uL (1.2-4.9); NRBC Abs Auto 0.000 X10*3/uL (0.0-0.012); NRBC Pct Auto 0.0 /100WBC (0.0-0.2)
[2025-07-24 11:32] LABS: Alanine Aminotransferase 27 U/L (0-31); Albumin Level 4.4 g/dL (3.5-5.0); Alkaline Phosphatase 109 U/L (39-117); Anion Gap 14 (12-20); Aspartate Amino Transferase 33 U/L (5-31); Blood Urea Nitrogen 8 mg/dL (9-16); Calcium 9.1 mg/dL (8.4-10.2); Carbon Dioxide 24 mmol/L (22-29); Chloride 108 mmol/L (96-108); Cholesterol 191 mg/dL (<200); Estimated Glomerular Filt Rate > 60; HDL Cholesterol 35 mg/dL (>40); Hemoglobin A1C 149.2722 umol/L; Potassium 4.2 mmol/L (3.3-5.1); Sodium 142 mmol/L (135-145); Total Hemoglobin (HGBA1C) 3557.2134 umol/L; Total Protein 7.5 g/dL (6.5-8.0); Triglycerides 225 mg/dL (<150)
[2025-07-24 12:08] LABS: Vitamin B12 248 pg/mL (200-900)
[2025-07-28 16:24] LABS: Vitamin D 25-OH, D2 <4 ng/mL; Vitamin D 25-OH, D3 30 ng/mL; Vitamin D 25-OH, Total 30 ng/mL (30-100)
== END 2025-07-24 08:50 | disposition home or self-care (01) ==
LOC: HO.HMGCLDS 08:49
PROVIDERS: PCP Internal Medicine; Visit Provider Internal Medicine
DX: Z00.01 Encounter for general adult medical examination with abnormal findings (principal); E11.69 Type 2 diabetes mellitus with other specified complication; I10 Essential (primary) hypertension; F33.42 Major depressive disorder, recurrent, in full remission; E78.9 Disorder of lipoprotein metabolism, unspecified; E53.8 Deficiency of other specified B group vitamins; E66.9 Obesity, unspecified; F41.1 Generalized anxiety disorder; E55.9 Vitamin D deficiency, unspecified; Z79.4 Long term (current) use of insulin; Z91.09 Other allergy status, other than to drugs and biological substances
CPT/HCPCS: 36415; 80053; 80061; 82306; 82607; 83036; 85025

== ENCOUNTER 2025-07-26 07:51 | Outpatient (REF) | payer OTHER, SELFPAY ==
--- OUTSIDE RECORDS SUMMARY | 2024-05-15 06:50 | XMS_ITS ---
Author Organization [facility] Address [address] [place] [phone] Care Team Providers Care Radio Mechanic Apprentice Name Role Phone Ap BENNETT, Chato Primary Care Provider Boyd Mccormack Jr REASON FOR VISIT gerd, screening colon Problems Problem Type SNOMED Code ICD Code Onset Dates Problem Status W/U Status Risk Notes Problem Gastroesophageal reflux disease (810113730) Gastroesophageal reflux disease (K21.9) Active confirmed Encounters Encounter Location Date Provider Diagnosis [facility] [place] [address] [place] [phone] 05/15/2024 Boyd Muniz Jr Encounter for screening colonoscopy Z12.11 and Gastroesophageal reflux disease K21.9 Assessments Encounter Date Diagnosis (ICD Code) Assessment Notes Treatment Notes Treatment Clinical Notes Section Notes 05/15/2024 Encounter for screening colonoscopy (ICD-10 - Z12.11) 05/15/2024 Gastroesophageal reflux disease (ICD-10 - K21.9) Plan Of Treatment No Information Progress Notes * COLLEEN DEAN NDOB: [birth year] (65 yo F)Acc No.[id number]:05/15/2024 EGD and COL/MAC Patient: JULIETA LAMBERTAUGUSTINE Snyder Provider: Wanda Muniz MD :1960 A ge:64 Y S ex:Female Date:05/15/2024 Address:[address] [place] [address] Pcp:Chato De Souza MD Subjective: * Chief Complaints: * 1 . Gerd, screening colon. * Medical History: Objective: * Vitals: Assessment: * Assessment: 1. E ncounter for screening colonoscopy - Z12.11 (Primary) 2 . G astroesophageal reflux disease - K21.9 Plan: * Treatment: * Procedure Codes: 4 5378 DIAGNOSTIC COLONOSCOPY, 18754 UPPER GI ENDOSCOPY, BIOPSY * * The named appointment provid er may or may not be the originator of this progress note, and it is not deemed complete until electronically signed by the appointment provider. Sign off status: Pending * Provider: Wanda Muniz MD Date: 0 05/15/2024 Generated for Candi calderon/Russell/Rosa Mariasmitting on: 0 07/26/2025 07:53 AM EDT
--- OUTSIDE RECORDS SUMMARY | 2025-07-26 07:53 | XMS_ITS | Patient Health Record ---
[facility] Address [address] [place] [address] Care Team Providers Care Property Accountant Name Role Phone Serjio Hearn MD Primary Care Provider Ethan Martinez Unavailable [phone] Reason For Referral No Information Medications Medication [...] Status W/U Status Risk Notes Problem Bursitis (17862437) Bursitis (727.3) Active confirmed Problem Metatarsalgia (01053703) Metatarsalgia (726.70) Active confirmed Problem Metatarsalgia (finding) (81189816) Plantarflexed Metatarsal (838.04) Active confirmed Plan Of Treatment No Information Insurance Providers Payer Name Payer Address Payer Phone Subscriber Number Group Number Insured Name Patient Relationship to Insured Coverage Start Date Coverage End Date Blue Benefits [address] [address] [place] [address] [id number] Umer Ca Self - patient is the insured Medical (General) History Medical History History ICD Code Sinus conditions Heart condition Surgical History Surgery Date(Month/Year) appendectomy
--- OUTSIDE RECORDS SUMMARY | 2025-07-26 07:54 | XMS_ITS | Patient Health Record ---
Author Organization [facility] Address [address] [place] [address] Care Team Providers Care Developer Prover Upholstering Name Role Phone Ap [facility]NET[facility], [facility] Primary Care Provider Boyd Mccormack Jr Unavailable [phone] Allergies No Known Allergies Reason For Referral [...] Problem Status W/U Status Risk Notes Problem 617210599 Colon cancer screening (Z12.11) Active confirmed Problem Gastroesophageal reflux disease (855673534) Gastroesophageal reflux disease (K21.9) Active confirmed Problem 246126980 Gastroesophageal reflux disease, unspecified whether esophagitis present [...] Coverage End Date [employer] [place] [address] [address] [place] [address] [id number] COLLEEN DEAN Self - patient is the insured Medical (General) History Medical History History ICD Code Prediabetes Elevated alkaline phosphatase Elevated BMI Vitamin D deficiency Surgical History Surgery Date(Month/Year)
== END 2025-07-26 07:52 | disposition home or self-care (01) ==
LOC: HO.LNP 07:51
PROVIDERS: Visit Provider Internal Medicine
DX: Z00.01 Encounter for general adult medical examination with abnormal findings (principal); I10 Essential (primary) hypertension; E11.69 Type 2 diabetes mellitus with other specified complication; E53.8 Deficiency of other specified B group vitamins; E66.9 Obesity, unspecified; F33.42 Major depressive disorder, recurrent, in full remission; F41.1 Generalized anxiety disorder; E78.9 Disorder of lipoprotein metabolism, unspecified; Z91.09 Other allergy status, other than to drugs and biological substances; E55.9 Vitamin D deficiency, unspecified; Z79.4 Long term (current) use of insulin
CPT/HCPCS: 82043; 82570

== ENCOUNTER 2025-07-28 15:02 | Outpatient (AMB) | payer OTHER, SELFPAY ==
--- OUTSIDE RECORDS SUMMARY | 2024-05-15 06:50 | XMS_ITS ---
Author Organization [facility] Address [address] [place] [phone] Care Team Providers Care Winch Operator Name Role Phone Ap BENNETT, Chato Primary Care Provider Boyd Mccormack Jr [phone] REASON FOR VISIT gerd, screening colon Problems Problem Type SNOMED Code ICD Code Onset Dates Problem Status W/U Status Risk Notes Problem Gastroesophageal reflux disease (366344208) Gastroesophageal reflux disease (K21.9) Active confirmed Encounters Encounter Location Date Provider Diagnosis [facility] [place] [address] [place] [phone] 05/15/2024 Boyd Muniz Jr Encounter for screening colonoscopy Z12.11 and Gastroesophageal reflux disease K21.9 Assessments Encounter Date Diagnosis (ICD Code) Assessment Notes Treatment Notes Treatment Clinical Notes Section Notes 05/15/2024 Encounter for screening colonoscopy (ICD-10 - Z12.11) 05/15/2024 Gastroesophageal reflux disease (ICD-10 - K21.9) Plan Of Treatment No Information Progress Notes * COLLEEN DEAN NDOB: [birth year] (65 yo F)Acc No.[id number]:05/15/2024 EGD and COL/MAC Patient: JULIETA LAMBERTAUGUSTINE Snyder Provider: Wanda Muniz MD :1960 A ge:64 Y S ex:Female Date:05/15/2024 Address:[address] [place] [address] Pcp:Chato De Souza MD Subjective: * Chief Complaints: * 1 . Gerd, screening colon. * Medical History: Objective: * Vitals: Assessment: * Assessment: 1. E ncounter for screening colonoscopy - Z12.11 (Primary) 2 . G astroesophageal reflux disease - K21.9 Plan: * Treatment: * Procedure Codes: 4 5378 DIAGNOSTIC COLONOSCOPY, 35429 UPPER GI ENDOSCOPY, BIOPSY * * The named appointment provid er may or may not be the originator of this progress note, and it is not deemed complete until electronically signed by the appointment provider. Sign off status: Pending * Provider: Wanda Muniz MD Date: 0 05/15/2024 Generated for Candi calderon/Russell/Rosa Mariasmitting on: 0 07/28/2025 06:09 PM EDT
--- NOTE | 2025-07-28 15:05 | A.OFFPC_ITS ---
Vital Signs 07/28/25 15:06 Height 5 ft 5 in Weight 167 lb BMI 27.8 BP 118/70 Blood Pressure Location Rt brachial Position Sitting Pulse 91 Pulse Source Pulse Oximeter Pulse Oximetry (%) 99 Intake Visit Reasons: 3m follow up Allergies Influenza Virus Vaccines Allergy (Verified 07/28/25 15:06) Angioedema metformin Adverse Reaction (Intermediate, Verified 07/28/25 15:06) GI upset Medication List - Last Reconciled 07/28/25 by Chato De Souza MD cholecalciferol (vitamin D3) 50 mcg PO DAILY 30 days clobetasol 0.05% 1 appl topical BEDTIME clotrimazole-betamethasone 1-0.05 % 1 appl topical ONCE 30 days cyanocobalamin (vitamin B-12) 1,000 mcg PO DAILY 90 days cyclobenzaprine 5 - 10 mg (1 - 2 x 5 mg) PO BEDTIME 30 days ketoconazole 2% 1 appl topical DAILY 30 days metoprolol succinate ER 25 mg PO DAILY montelukast 10 mg PO DAILY 90 days omeprazole 20 mg PO DAILY rosuvastatin 10 mg PO BEDTIME semaglutide 1 mg (0.75 mL) subcut QWEEK 90 days Tobacco use date assessed: 04/28/25 Dental Screening Dental Screen Date: 04/28/25 HPI 3m follow up HPI Details History of Present Illness The patient is a 65-year-old female presenting with palpitations, muscle spasms, weight management, and diabetes management. Palpitations: - Began experiencing palpitations, which the patient manages with metoprolol prescribed by Dr. Jesus. - Reported symptoms of lightheadedness a nd dizziness that may be related to metoprolol. - Current blood pressure reads 118/70 mm Hg. - Associated with episodes of feeling li ghtheaded and having palpitations. - Symptoms appeared to improve when keep ing hydrated. Muscle Spasms: - Experiences severe muscle spasms betwe en the shoulder blades, sometimes radiating to the neck. - Initiated physical therapy following t he episodes, with provision of muscle relaxers, taken on an as-needed basis. - Describes a history of nasty spasms affecting daily activities. - The treatment plan includes the use of a muscle relaxer only when symptoms require. thru Neuro Weight Management: - Previously recorded weight was 165 lbs , with physician-assessed current weight at 167 lbs. 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 - Follows dietary habits with minimal in take post-6 PM, with dinner often skipped or replaced by light snacks. - Has avoided substantial caloric intake during the day, and sometimes has a symptomatic stomach pain at night. Diabetes Management: - Diagnosed with diabetes - Most recent hemoglobin A1c is 6.0, marilu wcasing adequate glycemic control. - Described regimen included lifestyle m odifications and prescription for semaglutide injections contributing to glucose control. - Needs additional guidance regarding th e dietary patterns linked to energy balance. Medical History: - Palpitations treated with metoprolol - Diabetes controlled with diet and sema glutide - Muscle spasms managed with muscle rela xers and physical therapy - History of allergy management with Mon telukast - Blood pressure remains on the lower si de - History of elevated cholesterol manage d by rosuvastatin Medications: - Metoprolol for palpitations - Vitamin D supplement - Vitamin B12 supplement for energy leve ls - Muscle relaxer for muscle spasms, as n eeded - Montelukast for allergies - Omeprazole - Semaglutide for diabetes and weight ma nagement - Rosuvastatin for dyslipidemia Social History: - Reports a history of growing up with s tructured meal habits where post-6 PM eating was avoided. - Describes current meal habits consisti ng of minimal intake during the mornings and evenings, with reliance primarily on coffee. - There is a gap between caloric intake and expenditure which influences the patient's weight management efforts. Diagnostic Results: - Labs: Complete blood count normal, no anemia detected, white blood cell count normal. - Labs: Electrolytes normal, kidney func tion good, sugar is well-managed. - Labs: Hemoglobin A1c is 6.0 (adequate control). - Labs: Liver enzymes stable, cholestero l levels noted with LDL being 114 mg/dl. - Labs: Vitamin B12 low, Vitamin D statu s pending. Problem List - Palpitations - Muscle Spasms - Diabetes Mellitus - Dyslipidemia Patient Instructions - Keep well-hydrated to help manage bloo d pressure. - Continue semaglutide injections as pre scribed. - Include small, balanced meals if possi ble, to help with weight management. - Take Vitamin B12 and Vitamin D supplem ents as recommended. - Follow up on cholesterol and see if an increase in rosuvastatin dose is needed. - Continue using Montelukast for allergy management. - Discuss and verify medication refills as needed with the pharmacy. Review of Systems - General: No fever no chills - Neurological: No headaches no dizziness - Ear nose throat: No sore throat no hearing difficulty no ear pain - Cardiovascular: No syncope, no chest pain, no palpitations - Gastrointestinal: No nausea vomiting or diarrhea - Endocrine: No polyuria polydipsia no heat intolerance - Genitourinary: No dysuria , no blood in urine Physical Exam General: No acute distress HEENT: No acute findings Neck: Supple Respiratory system: Lungs are good, able to talk in full sentences, no audible wheeze Cardiovascular: S1-S2 regular in rate and rhythm Gastrointestinal: No pain Extremities: No new findings ORTHO ASSISTANT: Alert awake oriented x3 motor intact Skin: Normal turgor, a little bit dry PFSH Medical History Palpitations Lichen sclerosus Depression Anxiety Elevated alkaline phosphatase level Dyslipidemia Vitamin D deficiency Obesity (BMI 30-39.9) Diabetes type 2, controlled Surgical History History of angiography History of sinus surgery History of colonoscopy History of appendectomy Family History Father Prostate cancer Mother Diabetes mellitus Dementia HTN (hypertension) Brother No problems noted. Brother No problems noted. Sister No problems noted. Daughter No problems noted. Sister Diabetes mellitus HTN (hypertension) Other Mental health disorder Social History Housing: House Alcohol intake: never Patient Tobacco Use Status: Never used Tobacco e-Cigarette/Vaping Use: Never Used Second Hand Smoke Exposure: No Current occupational status: employed Current occupation: [employer] [place] Sexual orientation: Straight/Heterosexual Gender identity: Female Cognitive needs: No Hearing needs: No Vision needs: Yes Female Reproductive History Menstrual Age of Menarche: 14 Questionnaire Thrive Questionnaire Date Thrive assessed: 12/11/24 I am a: Patient What is your living situation today?: I have a steady place to live Within the past 12 months, did the food you bought not last and you didn't have the money to get more?: Never true Within the past 12 months, did you worry whether your food would run out before you got money to buy more?: Never true Do you have trouble paying for medicines?: No Do you have trouble getting transportation to medical appointments?: No Do you have trouble paying your heating and electricity bill?: No Do you have trouble taking care of your child, family member or friend?: No Do you have trouble with day-to-day activities such as bathing, preparing meals, shopping, managing finances, etc.?: No Are you currently unemployed and looking for a job?: No Are you interested in more education?: No Please select the resources that you would like help with: None Currently or been in a relationship where the following occur: No concerns reported THRIVE Score: 0 AIDA-7 AMB Questionnaire AIDA-7 Date AIDA - 7 assessed: 12/11/24 Source: Developed by Drs. Beto Griffin, Latonia Kimball, Dann Spaulding and colleagues, with an educational venancio from [employer]. Physical exam (Primary Care) Vital Signs: Last Vital Signs Pulse 91 07/28/25 15:06 BP 118/70 07/28/25 15:06 Pulse Ox 99 07/28/25 15:06 BMI result Body Mass Index 27.8 Tobacco/Smoking Status: Tobacco use Status Tobacco use date assessed 04/28/25 07/28/25 15:09 Patient Tobacco Use Status Never used Tobacco 07/28/25 15:09 e-Cigarette/Vaping Use Never Used 07/28/25 15:09 Thrive Assessment: Date of Thrive Assessment Date Thrive assessed 12/11/24 07/28/25 15:09 Currently or been in a relationship where the following occur: No concerns reported Coding Level of Care Code Est Pt Level 4 (41666) Diagnoses Diabetes type 2, controlled E11.9 Hypertension, essential I10 Vitamin D deficiency E55.9 Environmental allergies Z91.09 Lipid disorder E78.9 Anxiety, generalized F41.1 B12 deficiency E53.8 Assessment & Plan Assessment & Plan (1) Diabetes type 2, controlled: Comment: diet controlled Code(s): E11.9 - Type 2 diabetes mellitus without complications Category: Medical (2) Hypertension, essential: Code(s): I10 - Essential (primary) hypertension Category: Medical (3) Vitamin D deficiency: Code(s): E55.9 - Vitamin D deficiency, unspecified Category: Medical (4) Environmental allergies: Code(s): Z91.09 - Other allergy status, other than to drugs and biological substances Category: Medical (5) Lipid disorder: Code(s): E78.9 - Disorder of lipoprotein metabolism, unspecified Category: Medical (6) Anxiety, generalized: Code(s): F41.1 - Generalized anxiety disorder Category: Medical (7) B12 deficiency: Code(s): E53.8 - Deficiency of other specified B group vitamins Category: Medical Plan History of Present Illness The patient is a 65-year-old female presenting with palpitations, muscle spasms, weight management, and diabetes management. Palpitations: - Began experiencing palpitations, which the patient manages with metoprolol prescribed by Dr. Jesus. - Reported symptoms of lightheadedness and dizziness that may be related to metoprolol. - Current blood pressure reads 118/70 mmHg. - Associated with episodes of feeling lightheaded and having palpitations. - Symptoms appeared to improve when keeping hydrated. Muscle Spasms: - Experiences severe muscle spasms between the shoulder blades, sometimes radiating to the neck. - Initiated physical therapy following the episodes, with provision of muscle relaxers, taken on an as-needed basis. - Describes a history of nasty spasms affecting daily activities. - The treatment plan includes the use of a muscle relaxer only when symptoms require. thru Neuro Weight Management: - Previously recorded weight was 165 lbs, with physician-assessed current weight at 167 lbs. 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 - Follows dietary habits with minimal intake post-6 PM, with dinner often skipped or replaced by light snacks. - Has avoided substantial caloric intake during the day, and sometimes has a symptomatic stomach pain at night. Diabetes Management: - Diagnosed with diabetes - Most recent hemoglobin A1c is 6.0, showcasing adequate glycemic control. - Described regimen included lifestyle modifications and prescription for semaglutide injections contributing to glucose control. - Needs additional guidance regarding the dietary patterns linked to energy balance. Medical History: - Palpitations treated with metoprolol - Diabetes controlled with diet and semaglutide - Muscle spasms managed with muscle relaxers and physical therapy - History of allergy management with Montelukast - Blood pressure remains on the lower side - History of elevated cholesterol managed by rosuvastatin Medications: - Metoprolol for palpitations - Vitamin D supplement - Vitamin B12 supplement for energy levels - Muscle relaxer for muscle spasms, as needed - Montelukast for allergies - Omeprazole - Semaglutide for diabetes and weight management - Rosuvastatin for dyslipidemia Social History: - Reports a history of growing up with structured meal habits where post-6 PM eating was avoided. - Describes current meal habits consisting of minimal intake during the mornings and evenings, with reliance primarily on coffee. - There is a gap between caloric intake and expenditure which influences the patient's weight management efforts. Diagnostic Results: - Labs: Complete blood count normal, no anemia detected, white blood cell count normal. - Labs: Electrolytes normal, kidney function good, sugar is well-managed. - Labs: Hemoglobin A1c is 6.0 (adequate control). - Labs: Liver enzymes stable, cholesterol levels noted with LDL being 114 mg/dl. - Labs: Vitamin B12 low, Vitamin D status pending. Problem List - Palpitations - Muscle Spasms - Diabetes Mellitus - Dyslipidemia Patient Instructions - Keep well-hydrated to help manage blood pressure. - Continue semaglutide injections as prescribed. - Include small, balanced meals if possible, to help with weight management. - Take Vitamin B12 and Vitamin D supplements as recommended. - Follow up on cholesterol and see if an increase in rosuvastatin dose is needed. - Continue using Montelukast for allergy management. f/u 3 M Medications: New cyanocobalamin (vitamin B-12) 1,000 mcg PO DAILY 90 tabs 0RF 90 days Changed From rosuvastatin 10 mg PO BEDTIME 90 tabs 3RF To rosuvastatin 20 mg PO BEDTIME 90 tabs 3RF Refilled semaglutide for 4 weeks 1 mg (0.75 mL) subcut QWEEK 9.75 mL 0RF 90 days E11.69 - Type 2 diabetes mellitus with other specified complication, E66.9 - Obesity, unspecified, E78.9 - Disorder of lipoprotein metabolism, unspecified, I10 - Essential (primary) hypertension, R00.2 - Palpitations rosuvastatin 10 mg PO BEDTIME 90 tabs 3RF montelukast 10 mg PO DAILY 90 tabs 0RF 90 days Z91.09 - Other allergy status, other than to drugs and biological substances
[2025-07-28 15:06] VITALS: BP 118/70; PULSE 91; O2SAT 99; BMI 27.8
--- OUTSIDE RECORDS SUMMARY | 2025-07-28 18:10 | XMS_ITS | Patient Health Record ---
Author Organization [facility] Address [address] [place] [id number] Care Team Providers Care Dressing Machine Operator Name Role Phone Ap [facility] Primary [facility] Provider Boyd Mccormack Jr Unavailable [...] Problem Status W/U Status Risk Notes Problem [id number] Colon cancer screening (Z12.11) Active confirmed Problem Gastroesophageal reflux disease (132616800) Gastroesophageal reflux disease (K21.9) Active confirmed Problem [id number] Gastroesophageal reflux disease, unspecified whether esophagitis present [...] Coverage End Date [employer] [place] [address] [address] [place] [address] [id number] COLLEEN DEAN Self - patient is the insured Medical (General) History Medical History History ICD Code Prediabetes Elevated alkaline phosphatase Elevated BMI Vitamin D deficiency Surgical History Surgery Date(Month/Year)
--- OUTSIDE RECORDS SUMMARY | 2025-07-28 18:10 | XMS_ITS | Patient Health Record ---
[facility] Address [address] [place] [address] Care Team Providers Care Purchasing And Fiscal Clerk Name Role Phone Serjio Hearn MD Primary Care Provider Ethan Martinez Unavailable [phone] Reason For Referral No Information Medications Medication [...] Status W/U Status Risk Notes Problem Bursitis (61178007) Bursitis (727.3) Active confirmed Problem Metatarsalgia (70641348) Metatarsalgia (726.70) Active confirmed Problem Metatarsalgia (finding) (90383676) Plantarflexed Metatarsal (838.04) Active confirmed Plan Of Treatment No Information Insurance Providers Payer Name Payer Address Payer Phone Subscriber Number Group Number Insured Name Patient Relationship to Insured Coverage Start Date Coverage End Date Blue Benefits [address] [address] [place] [address] [id number] Umer Ca Self - patient is the insured Medical (General) History Medical History History ICD Code Sinus conditions Heart condition Surgical History Surgery Date(Month/Year) appendectomy
== END 2025-07-28 15:57 | disposition home or self-care (01) ==
LOC: HO.HMCC 15:02
PROVIDERS: PCP Internal Medicine; Visit Provider Internal Medicine
DX: E11.9 Type 2 diabetes mellitus without complications (principal); I10 Essential (primary) hypertension; E55.9 Vitamin D deficiency, unspecified; Z91.09 Other allergy status, other than to drugs and biological substances; E78.9 Disorder of lipoprotein metabolism, unspecified; F41.1 Generalized anxiety disorder; E53.8 Deficiency of other specified B group vitamins

== ENCOUNTER 2025-07-30 16:17 | Outpatient (AMB) | payer OTHER, SELFPAY ==
--- OUTSIDE RECORDS SUMMARY | 2024-05-15 06:50 | XMS_ITS ---
Author Organization [facility] Address [address] [place] [phone] Care Team Providers Care Vet Tech Name Role Phone Ap BENNETT, Chato Primary Care Provider Boyd Mccormack Jr REASON FOR VISIT gerd, screening colon Problems Problem Type SNOMED Code ICD Code Onset Dates Problem Status W/U Status Risk Notes Problem Gastroesophageal reflux disease (809530038) Gastroesophageal reflux disease (K21.9) Active confirmed Encounters Encounter Location Date Provider Diagnosis [facility] [place] [address] [place] [phone] 05/15/2024 Boyd Muniz Jr Encounter for screening colonoscopy Z12.11 and Gastroesophageal reflux disease K21.9 Assessments Encounter Date Diagnosis (ICD Code) Assessment Notes Treatment Notes Treatment Clinical Notes Section Notes 05/15/2024 Encounter for screening colonoscopy (ICD-10 - Z12.11) 05/15/2024 Gastroesophageal reflux disease (ICD-10 - K21.9) Plan Of Treatment No Information Progress Notes * COLLEEN DEAN NDOB: [birth year] (65 yo F)Acc No.[id number]:05/15/2024 EGD and COL/MAC Patient: JULIETA LAMBERTAUGUSTINE Snyder Provider: Wanda Muniz MD :1960 A ge:64 Y S ex:Female Date:05/15/2024 Address:[address] [place] [address] Pcp:Chato De Souza MD Subjective: * Chief Complaints: * 1 . Gerd, screening colon. * Medical History: Objective: * Vitals: Assessment: * Assessment: 1. E ncounter for screening colonoscopy - Z12.11 (Primary) 2 . G astroesophageal reflux disease - K21.9 Plan: * Treatment: * Procedure Codes: 4 5378 DIAGNOSTIC COLONOSCOPY, 51513 UPPER GI ENDOSCOPY, BIOPSY * * The named appointment provid er may or may not be the originator of this progress note, and it is not deemed complete until electronically signed by the appointment provider. Sign off status: Pending * Provider: Wanda Muniz MD Date: 0 05/15/2024 Generated for Candi calderon/Russell/Rosa Mariasmitting on: 0 07/30/2025 05:52 PM EDT
--- NOTE | 2025-07-30 16:18 | A.OFFVIS_ITS ---
Intake Visit Reasons: 12W UTI/microscopic hematuria Intake Note: Patient presents today via telehealth for a 12w follow up/UTI/microscopic hematuria Urology Medication:none Blood Thinner:None Antibiotic Allergies:None Medical Laboratory Manager Required: No Allergies Influenza Virus Vaccines Allergy (Verified 07/30/25 16:19) Angioedema metformin Adverse Reaction (Intermediate, Verified 07/30/25 16:19) GI upset HPI Comments Details: 07/30/25--Ca presents for telehealth follow-up. She has been evaluated due to history of recurrent UTIs last visit 04/2025 office cystoscopy mild erythematous changes consistent with cystitis. History of Present Illness The patient is a 65-year-old female presenting with a follow-up for recurrent urinary tract infections. She has a history of recurrent urinary tract infections, with the last visit on May 07, 2025, where an office cystoscopy was performed. The cystoscopy revealed mild erythematous changes consistent with cystitis. The patient reports that she has been doing well since the last visit, with no recurrence of urinary tract infections. She has increased her fluid intake, which has resulted in increased urinary freqency, but she is not experiencing any incontinence requiring pads. Her past medical history is significant for type 2 diabetes mellitus, -- comorbidity. Plan 1. Recurrent Urinary Tract Infections - Continue monitoring fluid intake - Follow-up as needed if symptoms recur. 05/07/25--Here for office cystoscopy. h/o recurrent UTI's Results: Cystoscopy findings: mild erythema c/w cystitis, no suspicious bladder lesions visualized. Urine cytology - 03/23/25--Negative for malignant cells CT Urogram--03/25/25--Urinary tract WNL Plan - FU Telehealth- UTI symptoms, 12 weeks 03/23/25--Ca is a 65-year-old who who is here for evaluation for microscopic hematuria. The patient states that she gets UTI's. Denies history of nicotine use. In review of her chart she had a positive urine culture October 2024. She denies gross hematuria. I have discussed that recurrent UTIs can be associated with sexual activity and there are associations related to postmenopausal estrogen changes. Discussed further evaluation with CT urogram, urine cytology and will send a surveillance urine culture. Follow-up office cystoscopy. [facility] Medical History Palpitations Lichen sclerosus Depression Anxiety Elevated alkaline phosphatase level Dyslipidemia Vitamin D deficiency Obesity (BMI 30-39.9) Diabetes type 2, controlled Surgical History History of angiography History of sinus surgery History of colonoscopy History of appendectomy Family History Father Prostate cancer Mother Diabetes mellitus Dementia HTN (hypertension) Brother No problems noted. Brother No problems noted. Sister No problems noted. Daughter No problems noted. Sister Diabetes mellitus HTN (hypertension) Other Mental health disorder Social History Housing: House Alcohol intake: never Patient Tobacco Use Status: Never used Tobacco e-Cigarette/Vaping Use: Never Used Second Hand Smoke Exposure: No Current occupational status: employed Current occupation: [employer] Sexual orientation: Straight/Heterosexual Gender identity: Female Cognitive needs: No Hearing needs: No Vision needs: Yes Female Reproductive History Menstrual Age of Menarche: 14 Review of Systems Const All systems reviewed & are unremarkable except as noted in HPI and below Reports no additional complaints Eyes Reports no additional complaints ENT Reports no additional complaints Card Reports no additional complaints Resp Reports no additional complaints GI Reports no additional complaints Reports as per HPI Musc Reports no additional complaints Skin/Breast Reports system reviewed and no additional complaints, except as documented Neuro Reports no additional complaints Psych Reports no additional complaints Endo Reports no additional complaints Eris/Lymph Reports no additional complaints Aller/Immun Reports no additional complaints Telehealth Telehealth Telehealth Platform: [facility] Location of provider rendering services: practice address Location of patient: address on file Patient Identification confirmed using: Name, : Yes Telehealth method: video Patient verbally consented to treatment: Yes Patient verbally consented to billing insurance company: Yes Patient informed of any privacy concerns related to visit: Yes Assessment & Plan Assessment & Plan (1) Recurrent UTI: Code(s): N39.0 - Urinary tract infection, site not specified Category: Medical (2) Microscopic hematuria: Code(s): R31.29 - Other microscopic hematuria Category: Medical (3) Cystitis: Code(s): N30.90 - Cystitis, unspecified without hematuria Category: Medical (4) Diabetes: Code(s): E11.9 - Type 2 diabetes mellitus without complications Category: Medical Plan Plan 1. Recurrent Urinary Tract Infections - Continue monitoring fluid intake - Follow-up as needed if symptoms recur. Patient Instructions: The patient had an opportunity to ask questions regarding treatment plan. The patient expressed understanding and agreement with the above treatment plan. The patient is aware they should contact our office by phone for worsening of their current condition or the appearance of new symptoms. Compliance is encouraged with any medications and followup testing that is ordered. It is a privilege to be allowed the opportunity to participate in the urologic care of your patient. If you have any questions or concerns regarding treatment for the above conditions please do not hesitate to contact me. The office telephone contact is [phone]. This note is constructed in part using voice recognition software. While every effort has been made to ensure accuracy communications superintendent errors may have been included. Yours sincerely, José Faust MD Scribe Plan - Not visible on output: Patient was informed and verbally consented to the use of an ambient scribe for clinic note documentation during this visit. Coding Level of Care Code Tele Est Pt Level 3 (17745) Diagnoses Recurrent UTI N39.0 Microscopic hematuria R31.29 Cystitis N30.90 Diabetes E11.9
--- OUTSIDE RECORDS SUMMARY | 2025-07-30 17:52 | XMS_ITS | Patient Health Record ---
Author Organization [facility] Address [address] [place] [address] Care Team Providers Care Christmas Tree Grader Name Role Phone Ap [facility] Primary Care Provider Boyd Mccormack Jr Unavailable [phone] Allergies No Known Allergies Reason For Referral [...] Problem Status W/U Status Risk Notes Problem [id number] Colon cancer screening (Z12.11) Active confirmed Problem Gastroesophageal reflux disease (573851165) Gastroesophageal reflux disease (K21.9) Active confirmed Problem 691451699 Gastroesophageal reflux disease, unspecified whether esophagitis present [...] Coverage End Date [employer] [place] [address] [address] [place] [address] [id number] COLLEEN DEAN Self - patient is the insured Medical (General) History Medical History History ICD Code Prediabetes Elevated alkaline phosphatase Elevated BMI Vitamin D deficiency Surgical History Surgery Date(Month/Year)
--- OUTSIDE RECORDS SUMMARY | 2025-07-30 17:52 | XMS_ITS | Patient Health Record ---
[facility] Address [address] [place] [address] Care Team Providers Care Ethylbenzene Cracking Supervisor Name Role Phone Serjio Hearn MD Primary Care Provider Ethan Martinez Unavailable [phone] Reason For Referral No Information Medications Medication [...] Status W/U Status Risk Notes Problem Bursitis (11624136) Bursitis (727.3) Active confirmed Problem Metatarsalgia (01509719) Metatarsalgia (726.70) Active confirmed Problem Metatarsalgia (finding) (45018741) Plantarflexed Metatarsal (838.04) Active confirmed Plan Of Treatment No Information Insurance Providers Payer Name Payer Address Payer Phone Subscriber Number Group Number Insured Name Patient Relationship to Insured Coverage Start Date Coverage End Date [employer] Benefits [address] [address] [place] [address] [id number] Umer Ca Self - patient is the insured Medical (General) History Medical History History ICD Code Sinus conditions Heart condition Surgical History Surgery Date(Month/Year) appendectomy
== END 2025-07-30 16:30 | disposition home or self-care (01) ==
LOC: HO.HUSH 16:17
PROVIDERS: PCP Internal Medicine; Visit Provider Urology
DX: N39.0 Urinary tract infection, site not specified (principal); R31.29 Other microscopic hematuria; N30.90 Cystitis, unspecified without hematuria; E11.9 Type 2 diabetes mellitus without complications
CPT/HCPCS: 99213

== ENCOUNTER 2025-10-26 10:03 | Outpatient (AMB) | payer OTHER, SELFPAY ==
--- NOTE | 2025-10-26 15:18 | A.OFFPC_ITS ---
Intake Visit Reasons: 3m f/up - [email or web address] Allergies Influenza Virus Vaccines Allergy (Verified 07/30/25 16:19) Angioedema metformin Adverse Reaction (Intermediate, Verified 07/30/25 16:19) GI upset Medication List - Last Reconciled 10/26/25 by Chato De Souza MD cholecalciferol (vitamin D3) 50 mcg PO DAILY 30 days clobetasol 0.05% 1 appl topical BEDTIME clotrimazole-betamethasone 1-0.05 % 1 appl topical ONCE 30 days cyanocobalamin (vitamin B-12) 1,000 mcg PO DAILY 90 days cyanocobalamin (vitamin B-12) 1,000 mcg PO DAILY 90 days cyclobenzaprine 5 - 10 mg (1 - 2 x 5 mg) PO BEDTIME 30 days ketoconazole 2% 1 appl topical DAILY 30 days metoprolol succinate ER 25 mg PO DAILY montelukast 10 mg PO DAILY 90 days omeprazole 20 mg PO DAILY rosuvastatin 20 mg PO BEDTIME semaglutide 1 mg (0.75 mL) subcut QWEEK 90 days Tobacco use date assessed: 04/28/25 Dental Screening Dental Screen Date: 04/28/25 HPI 3m f/up - [email or web address] HPI Details The patient is a 65-year-old female presenting with palpitations, muscle spasms, weight management, and diabetes management. Palpitations: - Began experiencing palpitations, which the patient manages with metoprolol prescribed by Dr. Jesus. how ever she keep feeling light headed and experiencing low BP, she will discuss it further with Dr Jesus. Muscle Spasms: - Experiences severe muscle spasms off a nd on, i am adding Mag Glycinate , she is to start taking one at night Weight Management: - Previously recorded weight was 167, an d its still 167. - Reports maintaining weight with semagl utide injections 1 mg weekly Diabetes Management: - last hemoglobin A1c is 6.0, showcasing adequate glycemic control. Problem List - Palpitations - Muscle Spasms - Diabetes Mellitus - Dyslipidemia - lightheadedness - wt managment Patient Instructions - Keep well-hydrated to help manage bloo d pressure. - Continue semaglutide injections as pre scribed. - Labs are needed before next visit in 3 M - start taking Magnisium at night Review of Systems - General: No fever no chills - Neurological: No headaches no dizziness - Ear nose throat: No sore throat no hearing difficulty no ear pain - Cardiovascular: No syncope, no chest pain, no palpitations - Gastrointestinal: No nausea vomiting or diarrhea - Endocrine: No polyuria polydipsia no heat intolerance - Genitourinary: No dysuria , no blood in urine [facility] Medical History Palpitations Lichen sclerosus Depression Anxiety Elevated alkaline phosphatase level Dyslipidemia Vitamin D deficiency Obesity (BMI 30-39.9) Diabetes type 2, controlled Surgical History History of angiography History of sinus surgery History of colonoscopy History of appendectomy Family History Father Prostate cancer Mother Diabetes mellitus Dementia HTN (hypertension) Brother No problems noted. Brother No problems noted. Sister No problems noted. Daughter No problems noted. Sister Diabetes mellitus HTN (hypertension) Other Mental health disorder Social History Housing: House Alcohol intake: never Patient Tobacco Use Status: Never used Tobacco e-Cigarette/Vaping Use: Never Used Second Hand Smoke Exposure: No Current occupational status: employed Current occupation: [employer] [place] Sexual orientation: Straight/Heterosexual Gender identity: Female Cognitive needs: No Hearing needs: No Vision needs: Yes Female Reproductive History Menstrual Age of Menarche: 14 Questionnaire Thrive Questionnaire Date Thrive assessed: 12/11/24 I am a: Patient What is your living situation today?: I have a steady place to live Within the past 12 months, did the food you bought not last and you didn't have the money to get more?: Never true Within the past 12 months, did you worry whether your food would run out before you got money to buy more?: Never true Do you have trouble paying for medicines?: No Do you have trouble getting transportation to medical appointments?: No Do you have trouble paying your heating and electricity bill?: No Do you have trouble taking care of your child, family member or friend?: No Do you have trouble with day-to-day activities such as bathing, preparing meals, shopping, managing finances, etc.?: No Are you currently unemployed and looking for a job?: No Are you interested in more education?: No Please select the resources that you would like help with: None Currently or been in a relationship where the following occur: No concerns reported THRIVE Score: 0 AUDIT C Alcohol Use Questionnaire (AUDIT-C) 3. How often do you have six or more drinks on one occasion?: Less than monthly Total Score: 1 AIDA-7 AMB Questionnaire AIDA-7 Date AIDA - 7 assessed: 12/11/24 Source: Developed by Drs. Beto Griffin, Latonia Kimball, Dann Spaulding and colleagues, with an educational venancio from [employer]. Physical exam (Primary Care) Tobacco/Smoking Status: Tobacco use Status Tobacco use date assessed 04/28/25 07/28/25 15:09 Patient Tobacco Use Status Never used Tobacco 07/28/25 15:09 e-Cigarette/Vaping Use Never Used 07/28/25 15:09 Thrive Assessment: Date of Thrive Assessment Date Thrive assessed 12/11/24 07/28/25 15:09 Currently or been in a relationship where the following occur: No concerns reported Telehealth Telehealth Telehealth Platform: [facility] Location of provider rendering services: practice address Location of patient: address on file Patient Identification confirmed using: Name, : Yes Telehealth method: video Patient verbally consented to treatment: Yes Patient verbally consented to billing insurance company: Yes Patient informed of any privacy concerns related to visit: Yes Minutes spent on Phone/Video with Pt.: 14 Coding Level of Care Code Tele Est Pt Level 3 (16319) Diagnoses Muscle cramp R25.2 Diabetes type 2, controlled E11.9 Palpitations R00.2 Lipid disorder E78.9 Anxiety, generalized F41.1 Recurrent major depressive disorder, in full remission F33.42 Active/Remission status: in full remission B12 deficiency E53.8 Assessment & Plan Assessment & Plan (1) Muscle cramp: Code(s): R25.2 - Cramp and spasm Category: Medical (2) Diabetes type 2, controlled: Comment: diet controlled Code(s): E11.9 - Type 2 diabetes mellitus without complications Category: Medical (3) Palpitations: Code(s): R00.2 - Palpitations Category: Medical (4) Lipid disorder: Code(s): E78.9 - Disorder of lipoprotein metabolism, unspecified Category: Medical (5) Anxiety, generalized: Code(s): F41.1 - Generalized anxiety disorder Category: Medical (6) Major depression, recurrent: Code(s): F33.9 - Major depressive disorder, recurrent, unspecified Category: Medical Qualifiers: Active/Remission status: in full remission Qualified Code(s): F33.42 - Major depressive disorder, recurrent, in full remission (7) B12 deficiency: Code(s): E53.8 - Deficiency of other specified B group vitamins Category: Medical Plan The patient is a 65-year-old female presenting with palpitations, muscle spasms, weight management, and diabetes management. Palpitations: - Began experiencing palpitations, which the patient manages with metoprolol prescribed by Dr. Jesus. how ever she keep feeling light headed and experiencing low BP, she will discuss it further with Dr Jesus. Muscle Spasms: - Experiences severe muscle spasms off and on, i am adding Mag Glycinate , she is to start taking one at night Weight Management: - Previously recorded weight was 167, and its still 167. - Reports maintaining weight with semaglutide injections 1 mg weekly Diabetes Management: - last hemoglobin A1c is 6.0, showcasing adequate glycemic control. depression and anxiety stable Patient Instructions - Keep well-hydrated to help manage blood pressure. - Continue semaglutide injections as prescribed. 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 Vitamin B12 2 Months E11.9 - Type 2 diabetes mellitus without complications, E53.8 - Deficiency of other specified B group vitamins, E78.9 - Disorder of lipoprotein metabolism, unspecified, F33.42 - Major depressive disorder, recurrent, in full remission, F41.1 - Generalized anxiety disorder, R00.2 - Palpitations, R25.2 - Cramp and spasm, 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 Magnesium 2 Months E11.9 - Type 2 diabetes mellitus without complications, E53.8 - Deficiency of other specified B group vitamins, E78.9 - Disorder of lipoprotein metabolism, unspecified, F33.42 - Major depressive disorder, recurrent, in full remission, F41.1 - Generalized anxiety disorder, R00.2 - Palpitations, R25.2 - Cramp and spasm, 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 Panel 2 Months E11.9 - Type 2 diabetes mellitus without complications, E53.8 - Deficiency of other specified B group vitamins, E78.9 - Disorder of lipoprotein metabolism, unspecified, F33.42 - Major depressive d isorder, recurrent, in full remission, F41.1 - Generalized anxiety disorder, R00.2 - Palpitations, R25.2 - Cramp and spasm, Z79.4 - [facility] (current) use of insulin LDL Cholesterol Direct 2 Months E11.9 - Type 2 diabetes mellitus without complications, E53.8 - Deficiency of other specified B group vitamins, E78.9 - Disorder of lipoprotein metabolism, unspecified, F33.42 - Major depressive disorder, recurrent, in full remission, F41.1 - Generalized anxiety disorder, R00.2 - Palpitations, R25.2 - Cramp and spasm, 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
== END 2025-10-26 16:19 | disposition home or self-care (01) ==
LOC: HO.HMCC 10:03
PROVIDERS: PCP Internal Medicine; Visit Provider Internal Medicine
DX: E11.9 Type 2 diabetes mellitus without complications (principal); R25.2 Cramp and spasm; R00.2 Palpitations; E78.9 Disorder of lipoprotein metabolism, unspecified; F41.1 Generalized anxiety disorder; F33.42 Major depressive disorder, recurrent, in full remission; E53.8 Deficiency of other specified B group vitamins